=== PATIENT | female | born 1940 | race Caucasian/White ===

== ENCOUNTER 2020-04-30 08:04 | Outpatient (REF) | payer MEDICARE, OTHER, SELFPAY ==
--- NOTE | 2020-04-30 08:00 | CT_ITS ---
EXAMINATION: CT ABDOMEN AND PELVIS WITH CONTRAST CLINICAL INFORMATION: Abdominal pain. Renal disease. COMPARISON: None. TECHNIQUE: Multidetector volumetric images were obtained from the superior aspect of the liver through the pubic symphysis following administration 85 mL of Omnipaque 350 intravenous contrast. Sagittal and coronal reformatted images were obtained on the technologist's workstation. Oral contrast: Yes. This CT examination was performed using dose optimization techniques as appropriate, variously including the following: *Automated exposure control *Adjustment of mA and/or kV according to patient size (this includes techniques or standardized protocols for targeted exams where dose is matched to indication/reason for exam; i.e. extremities or head) *Use of iterative reconstruction technique DLP: 510 mGy-cm FINDINGS: LUNG BASES: The visualized lung bases are unremarkable. LIVER, GALLBLADDER, AND BILIARY TREE: Unremarkable. PANCREAS: There is a multiloculated cystic mass in the pancreatic head measuring 5.7 (CC) x 4.3 (TRV) x 4.5 (AP) cm (image 70, series 4; image 65, series 4; image 33, series 3 respectively. No associated calcification is seen. The pancreatic duct is not significantly dilated in this region. A small cystic lesion is seen anterosuperiorly in the pancreatic body measuring 1.1 x 0.9 x 0.7 cm (image 62, series 4; image 25, series 3). Mild adjacent pancreatic ductal dilatation is seen measuring 0.5 cm (image 26, series 3). SPLEEN: Unremarkable. ADRENAL GLANDS: Unremarkable. KIDNEYS AND URETERS: Left upper pole renal cyst measures up to 4.3 cm (image 30, series 3). BLADDER: Unremarkable. GASTROINTESTINAL TRACT: The stomach is unremarkable. A small third segment duodenal diverticulum is seen without surrounding abnormality. The remainder of the small bowel is unremarkable. The appendix is unremarkable. Mild descending/sigmoid diverticulosis is seen with moderate mural thickening and pericolonic infiltrative changes in the mid one third of the sigmoid colon. There is no evidence for perforation or abscess formation. ABDOMINAL WALL: No significant hernia is appreciated. LYMPH NODES: No lymphadenopathy. VASCULAR: Moderate to severe atherosclerosis is seen without significant ectasia. PELVIC VISCERA: Unremarkable. OSSEOUS STRUCTURES: L5-S1 is transitional. There is mild grade 1 anterolisthesis of L4 over L5. No suspicious abnormality. IMPRESSION: 1. Pancreatic head cystic mass as detailed above. Considerations include serous cystadenoma, I PMN and uncomplicated pseudocyst. A cyst adenocarcinoma cannot be excluded. A smaller cyst is in the pancreatic body with mild adjacent pancreatic ductal dilatation favors an IPMN. Considerations for follow-up include contrast-enhanced MRI with MRCP as well as ERCP and biopsy. 2. Mild descending/sigmoid diverticulosis with evidence for acute diverticulitis in the mid one third of the sigmoid colon. No evidence for perforation or or abscess formation. 3. Left upper pole renal cyst demonstrates benign features. 4. Transitional L5-S1. L4-L5 grade 1 anterolisthesis. This critical result was discussed with Allison HUI at 04/30/2020 on 10:44 AM and it was ascertained that the content and urgency of the report was understood at the time of direct communication.
[2020-04-30] MEDS: iohexoL 350 MG/ML 100 ML INFUS..BTL IV (08:42)
== END 2020-04-30 08:05 | disposition home or self-care (01) ==
LOC: HO.CT 08:04
PROVIDERS: PCP Internal Medicine; Visit Provider Physician Assistant
DX: R10.9 Unspecified abdominal pain (principal)
CPT/HCPCS: 74177

== ENCOUNTER 2020-05-11 09:37 | Outpatient (REF) | payer MEDICARE, OTHER, SELFPAY ==
--- NOTE | 2020-05-11 09:50 | MR_ITS ---
EXAMINATION: MR ABDOMEN WITHOUT AND WITH CONTRAST CLINICAL INFORMATION: Followup pancreas lesion. COMPARISON: Previous CT of the abdomen and pelvis April 2020 TECHNIQUE: MR abdomen was performed without and with use of 7.5 mL intravenous Gadavist gadolinium contrast. Postcontrast images are performed in multiphase dynamic sequences. Imaging was performed in 3 planes. MRCP sequences were also performed. FINDINGS: LUNG BASES: The visualized lung bases are unremarkable. LIVER, GALLBLADDER, AND BILIARY TREE: The liver is normal in size, smooth in contour, and normal in signal. No focal hepatic lesion or biliary ductal dilatation is present. The gallbladder is unremarkable with no evidence of gallbladder wall thickening, or obvious pericholecystic inflammatory changes. Intrahepatic and extrahepatic bile ducts are normal in caliber. The common bile duct measures 0.4 cm. PANCREAS: There is a multilocular cystic lesion in the uncinate process of the head of the pancreas. This measures 3.5 x 4.5 x 5.5 cm in AP, transverse and longitudinal dimension. This has multiple enhancing septations. No solid component is seen. There are smaller cysts in the head of the pancreas measuring 4 mm and 5 x 10 mm. There is an 8 x 9 mm cyst in the body of the pancreas adjacent to the main pancreatic duct. There is mild focal dilatation of the main pancreatic duct in this region measuring up to 6 mm. The remainder of the main pancreatic duct is normal in caliber. SPLEEN: Normal. ADRENAL GLANDS: Normal. KIDNEYS AND URETERS: There is a 3.5 cm cyst in the left kidney. GASTROINTESTINAL TRACT: No bowel obstruction. No ascites or fluid collection. ABDOMINAL WALL: No significant hernia is appreciated. LYMPH NODES: No lymphadenopathy. VASCULAR: Unremarkable. OSSEOUS STRUCTURES: Marrow signal normal. There are degenerative changes of the spine. IMPRESSION: Large complex multiloculated cystic lesion in the uncinate process of the head of the pancreas with multiple enhancing septations. Smaller cysts seen in the head and body of the pancreas. The cyst in the body of the pancreas abuts the main pancreatic duct, and there is mild focal dilatation of the main pancreatic duct measuring up to 6 mm in this region. Neoplastic process such in IPMN, serous microcystic cystadenoma and complicated pseudocyst should be considered. Simple-appearing left renal cyst.
[2020-05-11 12:38] LABS: Alanine Aminotransferase 9 U/L (0-31); Alkaline Phosphatase 89 U/L (39-117); Anion Gap 14 (12-20); Aspartate Amino Transferase 16 U/L (5-31); Bilirubin Total 0.2 mg/dL (0.0-1.0); Blood Urea Nitrogen 12 mg/dL (9-16); Carbon Dioxide 28 mmol/L (22-29); Chloride 100 mmol/L (96-108); Estimated Glomerular Filt Rate 37; Glucose Random 89 mg/dL (60-115); Potassium 3.4 mmol/l (3.3-5.1); Sodium 139 mmol/L (135-145)
[2020-05-12 13:31] LABS: Carbohydrate Antigen 19-9 <3 U/mL (<34)
== END 2020-05-11 09:38 | disposition home or self-care (01) ==
LOC: HO.MRI 09:37
PROVIDERS: PCP Internal Medicine; Visit Provider Physician Assistant
DX: K86.89 Other specified diseases of pancreas (principal)
CPT/HCPCS: 74183; 80053; 86301

== ENCOUNTER → 2020-06-12 09:16 | Outpatient (BNVA) | payer MEDICARE, OTHER, SELFPAY | PROVIDERS: PCP Internal Medicine; Visit Provider Surgery | DX: N60.92 Unspecified benign mammary dysplasia of left breast (principal) | CPT/HCPCS: 99212 ==

== ENCOUNTER 2020-07-12 07:29 | Day surgery (SDC) | payer MEDICARE, OTHER, SELFPAY ==
[2020-07-09 09:52] VITALS: BMI 36.6
--- NOTE | 2020-07-11 12:59 | HO.ANESPROP2 ---
Documented by User: Ada Pérez 07/11/20 13:04 HPI - Anesthesia Eval Consult details Narrative: 80yo F for Colonoscopy ?ROSAMARIA Cardiac clearance pending per GI note PMFSH Past Medical History Medical History Atypical ductal hyperplasia of left breast Coronary artery disease History of anesthesia problem History of diverticulitis Hx of gastritis Hypercholesterolemia Hypertension Incontinence of feces Family History Family History Mother Gastric cancer Surgical History Surgical History History of esophagogastroduodenoscopy (EGD) History of heart artery stent History of left breast biopsy History of parotid gland removal Hx of colonoscopy Hx of dilation and curettage Social History Social History Alcohol intake: current Alcohol intake frequency: holidays/special occasions only Smoking Status: Former smoker Smoking Quit Date: 2007 Advance Directives: Yes Advance Directives Information Provided: Yes Advance Directives on File: Yes Advance Directives Date on File: 04/30/20 Meds Allergies Allergy/AdvReac Type Severity Reaction Status Date / Time No Known Allergies Allergy Verified 07/09/20 09:43 [No Known Allergies*] Home Medications Medication Instructions Recorded Confirmed Type amlodipine 10 mg tablet 10 mg PO BEDTIME 06/12/20 07/09/20 History aspirin 81 mg tablet,delayed 81 mg PO DAILY 06/12/20 07/12/20 History release clopidogrel 75 mg tablet 75 mg PO DAILY 06/12/20 07/12/20 History levothyroxine 112 mcg tablet 56 mcg PO DAILY 06/12/20 07/12/20 History rosuvastatin 40 mg tablet 40 mg PO DAILY 06/12/20 07/09/20 History cholecalciferol (vitamin D3) 125 mcg PO DAILY 07/09/20 07/09/20 History [Vitamin D3] omeprazole 1 cap PO DAILY 07/09/20 07/09/20 History Exam Exam Date and Time: July 11, 2020 1259 Height,Weight and Vital Signs: Height 4 ft 9 in Weight 76.657 kg Pertinent Lab Results Pertinent Lab Results: Laboratory Tests 04/18/20 05/11/20 12:25 10:53 WBC 10.5 Hgb 12.6 Hct 40.0 Plt Count 280 Sodium 139 Potassium 3.4 Chloride 100 Carbon Dioxide 28 BUN 12 Creatinine 1.36 Narrative Narrative: EKG 12/2019: NSR with LBBB (old) Assessment and Plan Assessment Anesthesia Assessment: Chart Reviewed Documented by User: Damien Teixeira MD 07/12/20 10:07 PMFSH Past Medical History Medical History Atypical ductal hyperplasia of left breast Coronary artery disease History of anesthesia problem History of diverticulitis Hx of gastritis Hypercholesterolemia Hypertension Incontinence of feces Family History Family History Mother Gastric cancer Surgical History Surgical History History of esophagogastroduodenoscopy (EGD) History of heart artery stent History of left breast biopsy History of parotid gland removal Hx of colonoscopy Hx of dilation and curettage Social History Social History Alcohol intake: current Alcohol intake frequency: holidays/special occasions only Smoking Status: Former smoker Smoking Quit Date: 2007 Advance Directives: Yes Advance Directives Information Provided: Yes Advance Directives on File: Yes Advance Directives Date on File: 04/30/20 Meds Allergies Allergy/AdvReac Type Severity Reaction Status Date / Time No Known Allergies Allergy Verified 07/09/20 09:43 [No Known Allergies*] Home Medications Medication Instructions Recorded Confirmed Type amlodipine 10 mg tablet 10 mg PO BEDTIME 06/12/20 07/09/20 History aspirin 81 mg tablet,delayed 81 mg PO DAILY 06/12/20 07/12/20 History release clopidogrel 75 mg tablet 75 mg PO DAILY 06/12/20 07/12/20 History levothyroxine 112 mcg tablet 56 mcg PO DAILY 06/12/20 07/12/20 History rosuvastatin 40 mg tablet 40 mg PO DAILY 06/12/20 07/09/20 History cholecalciferol (vitamin D3) 125 mcg PO DAILY 07/09/20 07/09/20 History [Vitamin D3] omeprazole 1 cap PO DAILY 07/09/20 07/09/20 History Assessment and Plan Assessment Anesthesia Assessment: Anesthesia Plan Discussed and Chart Reviewed Final Anesthetic Review NPO: Yes ASA Class: III Final Preanesthetic Review: No Changes in Pt Med Stat, Consent Obtained/Reviewed and Anes Risks/Benef Reviewed Patient Risk: Intermediate Procedure Risk: Low Anesthetic Plan Anesthetic Plan: MAC: Disposition: Standard PACU
[2020-07-12] VITALS (15 sets, daily range): BP systolic 136–177; BP diastolic 48–61; PULSE 82–98; RESP 14–20; TEMP 36.1–36.8; O2SAT 85–99
--- NOTE | 2020-07-12 | ECG_ITS ---
Test Reason : CP Blood Pressure : / mmHG Vent. Rate : 091 BPM Atrial Rate : 091 BPM P-R Int : 134 ms QRS Dur : 150 ms QT Int : 414 ms P-R-T Axes : 041 -27 120 degrees QTc Int : 509 ms Normal sinus rhythm Left bundle branch block Abnormal ECG When compared with ECG of 06-JUN-2013 15:06, No significant change was found Referred By: Damien Teixeira Electronically Signed By:Eduard Kennedy
[2020-07-12 08:01] LABS: COVID-19 Test Negative (Negative)
[2020-07-12] MEDS: Lactated Ringers 1,000 ML 100 ML IVCONT (08:11)
--- NOTE | 2020-07-12 09:27 | PC.NURSE ---
per GI note, pt required cardiac clearance prior to colonoscopy d/t cardiac stent placed in october 2018. Sol in GI office faxed over cardiology note from january 2020. this note does not state clearance for colonscopy. case discussed with Dr. Olivares, Dr. Teixeira and Dr. Osorio. Dr. Teixeira assessed the patient and determined it was safe to proceed. upon further investigation, pt states she has not been on plavix for 8 days. Sol from GI office spoke with Rosaura MEI in Dr. Vaughn's office and stated Dr. Vaughn is aware of colonscopy. if he was not ok with he would not have told her to stop plavix. per anestheis and Dr. Clifford, it is ok to proceed with colonscopy without formal cardiac clearance. telephone encounter from Dr. Vaughn's office was sent over from GI and palced in patient chart.
--- NOTE | 2020-07-12 10:28 | MHC.SHP ---
Pre-Procedural Eval Section B Chief Complaint: Abdominal Pain Relevant Social History: None Present Medications: see Short Stay Collaborative assessment Medical History: Significant History (Atypical ductal hyperplasia of left breast Coronary artery disease History of anesthesia problem History of diverticulitis Hx of gastritis Hypercholesterolemia Hypertension Incontinence of feces, pancreatic cyst) History of Previous Operations: Relevant previous surgery/procedure and date(s) (History of esophagogastroduodenoscopy (EGD) History of heart artery stent History of left breast biopsy History of parotid gland removal Hx of colonoscopy Hx of dilation and curettage) Allergies: Allergies Allergy/AdvReac Type Severity Reaction Status Date / Time No Known Allergies Allergy Verified 07/09/20 09:43 [No Known Allergies*] Review of Systems Sugical H&P ROS: Negative: Constitution, Cardiovascular, Respiratory, Neurological, Psychiatric, Hem-Onc, Allergic/Immunologic, Gastrointestinal, Genitourinary, Musculoskeletal, Integumentary, Endocrine and Eyes/Ears/Nose/Throat Exam Surgical H&P Exam: Normal: HEENT, Normal: Heart, Normal: Lungs, Normal: Extremities, Normal: Abdomen, Normal: Skin and Normal: Neurological Plan Diagnosis/Plan: Unchanged I have reviewed the history and physical and performed a pertinent physical examination on my patient. No changes have occurred unless specified.
--- NOTE | 2020-07-12 11:13 | P.BOP_ITS ---
Brief Operative Note Date of Service: 07/12/20 Pre-op diagnosis: constipation, hx of incomplete colonoscopy Post-op diagnosis: same Procedure: Operative Information Procedure Description: Colonoscopy COLONOSCOPY Instrument: Olympus variable stiffness pediatric scope 190L Colonoscopy Monitoring: Vital signs and clinical assessment, continuous EKG monitoring, Pulse oximetry, Carbon Dioxide monitoring and blood pressure monitoring were done throughout the procedure. Colon withdrawal time was 17 minutes. Procedure: The patient was placed in the left lateral decubitis position and pre-procedure medications were administered. After a digital rectal examination of the ano-rectum, the video colonoscope was inserted into the rectum and advanced through the colon to the cecum The colonoscope was slowly withdrawn in a retrograde panoramic fashion and the colon mucosa was carefully examined including a retroflexed view of the rectum. Findings and interventions are described below. Procedure Difficulty: very difficult due to severe diverticulosis and looping, sigmoid lift used to get around a very tight rectosigmoid junction Findings: Sanders diverticular disease with wide mouthed tics, more severe on the left colon with mucosal hypertrophy and narrowing with angulation and fixed colon antione in the distal sigmoid and rectosigmoid junction, some mild erythema around the diverticula in sigmoid Terminal Ileum-unable to intubate due to looping Cecum:8-10 mm sessile polyp removed with cold snare Ascending Colon: normal Transverse Colon -normal Descending Colon: x 2 polyps,both sessile, one was 10 mm and removed with cold snare, x 1 clip applied due to oozing of blood, second polyp removed with biopsy forceps measured about 6-8 mm Sigmoid Colon: as above--diverticulosis, severe Rectum: Retroflexion with small sized internal hemorrhoids, grade I Anorectum - normal Colon preparation: Sylvester Bowel Preparation Scale Right colon; 2 Transverse colon: 3 Left colon; 3 (0 = Unprepared colon segment with mucosa not seen due to solid stool that cannot be cleared. 1 = Portion of mucosa of the colon segment seen, but other areas of the colon segment not well seen due to staining, residual stool and/or opaque liquid. 2 = Minor amount of residual staining, small fragments of stool and/or opaque liquid, but mucosa of colon segment seen well. 3 = Entire mucosa of colon segment seen well with no residual staining, small fragments of stool or opaque liquid) Impression and Post Procedure Diagnosis: severe diverticulosis, internal hemorrhoids polyps Plan: High fiber diet leaflet Avoid straining at stool, epsom salts and sitz bath, anusol supps or cream prn stool softener as needed should not need another colonoscopy for screening purposes, but if required for other reasons then can be considered as clinically indicated. during procedure she did vomit a few times, will give short course of augmentin to prevent pneumonia Above findings were reviewed with the patient and relevant handouts were provided if indicated. Surgeon: Supa Clifford MD Anesthesia: MAC Estimated blood loss (mL): 5 Condition: stable Disposition: PACU
[2020-07-12] MEDS: Albuterol Sulfate (0.083%) 2.5 MG/3 ML VIAL.NEB INHALE (11:47)
[2020-07-12] MEDS: Amoxicillin/Potassium Clav 500 MG TABLET PO (12:13)
--- NOTE | 2020-07-13 14:01 | HO.POSTANES ---
Post Anesthesia Evaluation Post Anesthesia Evaluation Anesthesia: Monitored Mental Status: Awake Pain Control: Satisfactory Nausea/Vomiting: Severe (patient aspirated leading to aspiration pneumonia. Patient was admitted for observation) Hydration: Adequate Anesthesia-Related Issues: No Anes. Related Issues (aspiration)
== END 2020-07-12 23:59 | disposition home or self-care (01) ==
PROVIDERS: PCP Internal Medicine; Visit Provider Internal Medicine Gastroenterology
PROC: 0DJD8ZZ Inspection of Lower Intestinal Tract, Via Natural or Artificial Opening Endoscopic (ICD-10-PCS; CPT 45378; principal; 2020-07-12 09:10)
DX: R10.9 Unspecified abdominal pain (principal); K59.00 Constipation, unspecified; D12.0 Benign neoplasm of cecum; K63.5 Polyp of colon; K57.30 Diverticulosis of large intestine without perforation or abscess without bleeding; K56.2 Volvulus; K64.0 First degree hemorrhoids; J95.89 Other postprocedural complications and disorders of respiratory system, not elsewhere classified; J69.0 Pneumonitis due to inhalation of food and vomit; Y84.8 Other medical procedures as the cause of abnormal reaction of the patient, or of later complication, without mention of misadventure at the time of the procedure; Y92.238 Other place in hospital as the place of occurrence of the external cause; I25.10 Atherosclerotic heart disease of native coronary artery without angina pectoris; Z95.5 Presence of coronary angioplasty implant and graft; Z20.828 Contact with and (suspected) exposure to other viral communicable diseases
CPT/HCPCS: 45385; 45380; 87635; 88305; 93005; 94640; J2405; J2765

== ENCOUNTER 2020-07-12 14:29 | Inpatient (IN) | payer MEDICARE, OTHER, SELFPAY ==
[2020-07-12 14:34] VITALS: BP 147/46; PULSE 87; RESP 16; TEMP 37.2; O2SAT 89; BMI 36.3
--- NOTE | 2020-07-12 14:45 | PC.NURSE ---
pt is placed on 02 at 2l/m via n/c.
--- NOTE | 2020-07-12 15:09 | XR_ITS ---
EXAMINATION: XR CHEST CLINICAL INFORMATION: Aspiration of the colonoscopy. Evaluate for pneumonia. COMPARISON: None TECHNIQUE: 2 views of the chest were obtained. FINDINGS: Lungs and pleural spaces: Clear. Calcification of the dorsal aorta. Cardiac silhouette and pulmonary vascularity normal. Bone and soft tissues: Spondylosis of the dorsal spine. XR/XR chest 2V IMPRESSION: No acute disease
--- NOTE | 2020-07-12 15:15 | ED_ITS ---
HPI - SOB/Dyspnea General Chief Complaint: Dyspnea Stated Complaint: r/o pneumonia Time Seen by Provider: 07/12/20 15:03 Source: patient and other (Dr. Miranda,PACU anesthesiologist) Mode of arrival: ambulatory Limitations: no limitations History of Present Illness HPI Narrative: 80-year-old female who was undergoing elective colonoscopy for evaluation of abdominal pain and constipation [place] [facility] [place] erred to the emergency department for evaluation of possible aspiration pneumonia. According to the anesthesiologist in the PACU, Dr. Miranda, the patient had 2 episodes of emesis requiring suction. After the emesis the patient was noted to be hypoxic with O2 saturations dropping to the 80% range on room air. On 2 L via nasal cannula, the patient came up to the 96% range on her O2 saturations. Given her hypoxia, the patient was sent to the emergency department for an evaluation for further management. The patient states that prior to being transferred to the emergency department she was given oral antibiotics but she does not know the name of this medication. At the time evaluation, the patient states that she has a dry, nonproductive cough and a burning sensation in her throat when she coughs. She denies chest pain or shortness of breath. She states that she was in her usual state of health prior to the colonoscopy. She states that she was tested for COVID-19 prior to the procedure and tested negative. Related Data Home Medications Medication Instructions Recorded Confirmed amlodipine 10 mg tablet 10 mg PO BEDTIME 06/12/20 07/09/20 aspirin 81 mg tablet,delayed 81 mg PO DAILY 06/12/20 07/12/20 release clopidogrel 75 mg tablet 75 mg PO DAILY 06/12/20 07/12/20 levothyroxine 112 mcg tablet 56 mcg PO DAILY 06/12/20 07/12/20 rosuvastatin 40 mg tablet 40 mg PO DAILY 06/12/20 07/09/20 cholecalciferol (vitamin D3) 125 mcg PO DAILY 07/09/20 07/09/20 [Vitamin D3] omeprazole 1 cap PO DAILY 07/09/20 07/09/20 Previous Rx's Medication Instructions Recorded amoxicillin-pot clavulanate 2 tab PO Q8H 5 Days #30 tab 07/12/20 Allergies Allergy/AdvReac Type Severity Reaction Status Date / Time No Known Allergies Allergy Verified 07/09/20 09:43 [No Known Allergies*] Review of Systems Review of Systems: Yes all other systems are reviewed and are negative Constitutional: Constitutional: Reports as per HPI Eyes: Eyes: Reports as per HPI ENT: Reports as per HPI Cardiovascular: Cardiovascular: Reports as per HPI Respiratory: Respiratory: Reports as per HPI Gastrointestinal: Gastrointestinal: Reports as per HPI Genitourinary: Genitourinary: Reports as per HPI Musculoskeletal: Musculoskeletal: Reports as per HPI Integumentary/Breasts: Skin/Breast: Reports as per HPI Neurologic: Reports as per HPI and Reports Abnormal speech present Psychiatric: Psychiatric: Reports as per HPI Allergic/Immunologic: Allergic/Immunologic: Reports as per HPI [facility] Past Medical History Attestation statement: The following information was validated with the patient. [facility] Narrative: The patient is a former smoker, she stopped 12 years ago but has a 50 pack-year history of smoking. She denies alcohol and drug use. Medical History Atypical ductal hyperplasia of left breast Coronary artery disease History of anesthesia problem History of diverticulitis Hx of gastritis Hypercholesterolemia Hypertension Incontinence of feces Surgical History History of esophagogastroduodenoscopy (EGD) History of heart artery stent History of left breast biopsy History of parotid gland removal Hx of colonoscopy Hx of dilation and curettage Family History Family History Mother Gastric cancer Social History Social History Alcohol intake: current Alcohol intake frequency: holidays/special occasions only Smoking Status: Former smoker Advance Directives: Yes Advance Directives on File: Yes Advance Directives Date on File: 04/30/20 Physical Exam Vital Signs: Vital Signs: Last Vital Signs Temp 99.1 F 07/12/20 16:54 Pulse 94 07/12/20 16:54 Resp 22 H 07/12/20 16:54 BP 145/31 H 07/12/20 16:54 Pulse Ox 99 07/12/20 16:54 Body Mass Index 36.3 Const: General: cooperative and healthy appearing Nutritional Appearance: obese Orientation/consciousness: oriented to person and oriented to place Limitations: no limitations HENMT: Head: Yes normal to inspection, Yes normocephalic and Yes atraumatic Ears: external ears normal General nose exam: Normal external nose present Face and sinus: Yes normal facial exam Mouth: Normal oral and palatal mucosa present Throat: Yes posterior oropharynx normal Eyes: General: appearance normal, both eyes and all related structures Alignment and Position: alignment normal Periorbital: periorbital findings normal Eyelids: Yes eyelids normal Conjunctivae: conjunctivae normal Sclerae: sclerae normal Pupils: Equal, round and reactive pupils present Direct Ophthalmoscopy: normal light reflex Neck: Neck: Yes normal visual inspection and Yes supple Thyroid: Thyroid normal Chest: Chest palpation & inspection: normal inspection of the chest and normal palpation of entire chest wall Resp: Effort & Inspection: normal respiratory effort and able to speak in complete sentences Auscultation: clear to auscultation bilaterally, no crackles, rales (At bases) and no rhonchi Cardio: Rate: regular rate Rhythm: regular rhythm Heart sounds: S1 normal heart sound present, S2 normal heart sound present and no murmurs GI: Inspection: Yes normal to inspection Palpation (GI): Soft to palpation, nontender and no guarding Auscultation: normal bowel sounds : General: Yes no CVA tenderness Back/Spine/Pelvis: Back: no CVA tenderness Cervical Spine: normal cervical lordosis Thoracic/Lumbar Spine: thoracic and lumbar spine normal to inspection Skin: General skin exam: no rashes or lesions noted Lesions: no lesions Rashes: no rashes Trauma: no lacerations or abrasions Neuro: General: oriented to person and oriented to place Cranial nerves: Yes CN's II-XII intact bilaterally and Yes Equal, round and reactive pupils present Cognition (Neuro): normal cognition Speech: Abnormal speech present Motor exam (neuro): 5/5 motor strength present throughout Extrem: Right upper extremity: normal to inspection and full ROM Psych: Appearance: grossly normal and well kempt Mental Status: mental status grossly normal Speech and movement: Normal speech and movement present Affect: normal affect Attitude: cooperative Thought process: Normal thought process present Thought content: Normal thought content present Insight: Good insight present (Psych) Judgement: Good judgement present (Psych) Course Course Course Narrative: 80-year-old female who presents to the emergency department for evaluation of hypoxia after 2 episodes of emesis after [place] [facility] [place] The patient's O2 saturations were in the 80% range on 2 L oxygen via nasal cannula her O2 saturations are 96%. Her lung exam does reveal rales at the bases. I did order a septic workup on this patient. Given the fact that she aspirated and is at risk for aspiration pneumonia/pneumonitis she was ordered to get Zosyn IV to give her anaerobic coverage. The patient did do a colonoscopy prep and I believe that she may be dehydrated therefore I did order the normal sounds 30 milliliters/kilogram IV bolus. 1706: Patient's laboratory evaluation [place] an [place] [address] and a normal lactic acid of 1.2. Chest x-ray revealed no acute infiltrate at this time. Given her hypoxia, concerned that she has a pneumonitis any x-rays lagging behind her symptoms. I did discuss the patient's presentation with the covering hospitalist and the patient will be admitted for further treatment and management of her hypoxia. MDM - SOB/Dyspnea Lab Data Result diagrams: 07/12/20 15:51 07/12/20 15:51 Labs: Lab Results 07/12/20 07/12/20 07/12/20 Range/Units 15:51 15:51 15:51 WBC 18.2 H (4.8-10.8) X10*3/uL RBC 4.18 L (4.20-5.50) X10*6/uL Hgb 12.8 (12.0-16.0) g/dl Hct 39.5 (37-47) % MCV 94.5 (80-98) fL MCH 30.6 (27.0-33.0) pg MCHC 32.4 (31.0-35.0) g/dl RDW 14.2 (11.0-16.0) % Plt Count 251 (160-400) X10*3/uL MPV 10.2 (9.4-12.3) fL Immature Gran % (Auto) 0.4 (0.0-0.4) % Neut % (Auto) 89.5 H (45-73) % Lymph % (Auto) 3.9 L (20-40) % Hughes % (Auto) 6.0 (2-11) % Eos % (Auto) 0.1 (0-4) % Baso % (Auto) 0.1 (0-2) % Lymph # (Auto) 0.7 L (1.2-4.9) X10*3/uL Hughes # (Auto) 1.1 (0.1-1.2) X10*3/uL Eos # (Auto) 0.0 (0.0-0.4) X10*3/uL Baso # (Auto) 0.0 (0.0-0.2) X10*3/uL Abs Immat Gran (auto) 0.07 H (0.00-0.03) X10*3/uL Absolute Neuts (auto) 16.3 H (2.0-8.3) X10*3/uL Absolute Nucleated RBC 0.000 (0.0-0.012) X10*3/uL Nucleated RBC % (auto) 0.0 (0.0-0.2) /100WBC PT (10.8-13.0) SEC INR (0.9-1.1) APTT (24.1-38.0) SEC Sodium 140 (135-145) mmol/L Potassium 4.0 (3.3-5.1) mmol/l Chloride 103 (96-108) mmol/L Carbon Dioxide 23 (22-29) mmol/L Anion Gap 18 (12-20) BUN 13 (9-16) mg/dL Creatinine 0.99 (0.5-1.4) mg/dL Estim Creat Clear Calc 38.3 Estimated GFR 54 Random Glucose 98 (60-115) mg/dL Lactic Acid 1.5 (0.5-2.0) mmol/L Calcium 8.9 (8.4-10.2) mg/dL Total Bilirubin 0.3 (0.0-1.0) mg/dL Direct Bilirubin 0.2 (0.0-0.5) mg/dL AST 19 (5-31) U/L ALT 21 (0-31) U/L Alkaline Phosphatase 131 H D (39-117) U/L Total Protein 6.6 (6.5-8.0) g/dL Albumin 3.9 (3.5-5.0) g/dL 07/12/20 07/12/20 Range/Units 15:51 15:52 WBC (4.8-10.8) X10*3/uL RBC (4.20-5.50) X10*6/uL Hgb (12.0-16.0) g/dl Hct (37-47) % MCV (80-98) fL MCH (27.0-33.0) pg MCHC (31.0-35.0) g/dl RDW (11.0-16.0) % Plt Count (160-400) X10*3/uL MPV (9.4-12.3) fL Immature Gran % (Auto) (0.0-0.4) % Neut % (Auto) (45-73) % Lymph % (Auto) (20-40) % Hughes % (Auto) (2-11) % Eos % (Auto) (0-4) % Baso % (Auto) (0-2) % Lymph # (Auto) (1.2-4.9) X10*3/uL Hughes # (Auto) (0.1-1.2) X10*3/uL Eos # (Auto) (0.0-0.4) X10*3/uL Baso # (Auto) (0.0-0.2) X10*3/uL Abs Immat Gran (auto) (0.00-0.03) X10*3/uL Absolute Neuts (auto) (2.0-8.3) X10*3/uL Absolute Nucleated RBC (0.0-0.012) X10*3/uL Nucleated RBC % (auto) (0.0-0.2) /100WBC PT 12.3 (10.8-13.0) SEC INR 1.0 (0.9-1.1) APTT 38.7 H (24.1-38.0) SEC Sodium Cancelled (135-145) mmol/L Potassium Cancelled (3.3-5.1) mmol/l Chloride Cancelled (96-108) mmol/L Carbon Dioxide Cancelled (22-29) mmol/L Anion Gap Cancelled (12-20) BUN Cancelled (9-16) mg/dL Creatinine Cancelled (0.5-1.4) mg/dL Estim Creat Clear Calc Cancelled Estimated GFR Cancelled Random Glucose Cancelled (60-115) mg/dL Lactic Acid (0.5-2.0) mmol/L Calcium Cancelled (8.4-10.2) mg/dL Total Bilirubin Cancelled (0.0-1.0) mg/dL Direct Bilirubin (0.0-0.5) mg/dL AST (5-31) U/L ALT (0-31) U/L Alkaline Phosphatase (39-117) U/L Total Protein (6.5-8.0) g/dL Albumin (3.5-5.0) g/dL Discharge Plan Discharge Clinical Impression: Aspiration pneumonitis, Hypoxia Patient Disposition: Admitted As Inpatient Prescriptions: No Action omeprazole 40 mg capsule,delayed release(DR/EC) 1 cap PO DAILY RF: 0 cholecalciferol (vitamin D3) [Vitamin D3] 125 mcg (5,000 unit) Tablet 125 mcg PO DAILY RF: 0 amoxicillin-pot clavulanate 250-125 mg tablet 2 tab PO Q8H 5 Days Qty: 30 RF: 0 levothyroxine 112 mcg tablet 56 mcg PO DAILY RF: 0 clopidogrel 75 mg tablet 75 mg PO DAILY RF: 0 aspirin [Adult Low Dose Aspirin] 81 mg tablet,delayed release (DR/EC) 81 mg PO DAILY RF: 0 amlodipine 10 mg tablet 10 mg PO BEDTIME RF: 0 rosuvastatin 40 mg tablet 40 mg PO DAILY RF: 0
[2020-07-12] MEDS: Piperacillin Sodium/Tazobactam 4.5 GM in 0.9 % Sodium Chloride 100 ML IV (15:55)
[2020-07-12 16:12] LABS: Basophils Percent Auto 0.1 % (0-2); Eosinophils Percent Auto 0.1 % (0-4); Hematocrit 39.5 % (37-47); Hemoglobin 12.8 g/dl (12.0-16.0); Imm Gran Abs Auto 0.07 X10*3/uL (0.00-0.03); Imm Gran Pct Auto 0.4 % (0.0-0.4); Lymphocytes Absolute Auto 0.7 X10*3/uL (1.2-4.9); Lymphocytes Percent Auto 3.9 % (20-40); MANUAL DIFF FLAG NO; Mean Corpuscular HGB Conc 32.4 g/dl (31.0-35.0); Mean Corpuscular Hemoglobin 30.6 pg (27.0-33.0); Mean Corpuscular Volume 94.5 fL (80-98); Mean Platelet Volume 10.2 fL (9.4-12.3); Monocytes Absolute Auto 1.1 X10*3/uL (0.1-1.2); Neutrophils Absolute Auto 16.3 X10*3/uL (2.0-8.3); Neutrophils Percent Auto 89.5 % (45-73); Platelet Count 251 X10*3/uL (160-400); Red Blood Count 4.18 X10*6/uL (4.20-5.50); Red Cell Distribution Width 14.2 % (11.0-16.0); White Blood Count 18.2 X10*3/uL (4.8-10.8)
[2020-07-12 16:28] LABS: Lactic Acid 1.5 mmol/L (0.5-2.0)
[2020-07-12 16:35] LABS: Alanine Aminotransferase 21 U/L (0-31); Albumin Level 3.9 g/dL (3.5-5.0); Alkaline Phosphatase 131 U/L (39-117); Anion Gap 18 (12-20); Aspartate Amino Transferase 19 U/L (5-31); Bilirubin Direct 0.2 mg/dL (0.0-0.5); Bilirubin Total 0.3 mg/dL (0.0-1.0); Blood Urea Nitrogen 13 mg/dL (9-16); Calcium 8.9 mg/dL (8.4-10.2); Carbon Dioxide 23 mmol/L (22-29); Chloride 103 mmol/L (96-108); Creatinine Clr Calc Pharmacy 38.3; Estimated Glomerular Filt Rate 54; Glucose Random 98 mg/dL (60-115); Sodium 140 mmol/L (135-145); Total Protein 6.6 g/dL (6.5-8.0)
[2020-07-12 16:50] LABS: Prothrombin Time 12.3 SEC (10.8-13.0)
[2020-07-12 16:53] LABS: Partial Thromboplastin Time 38.7 SEC (24.1-38.0)
[2020-07-12 16:54] VITALS: BP 145/31; PULSE 94; RESP 22; TEMP 37.3; O2SAT 99
--- NOTE | 2020-07-12 17:14 | PC.NURSE ---
Pt ambulated to bathroom w/ 1 assist for wheel oxygen tank, ambulates with steady gait.
[2020-07-12 17:21] LABS: Anion Gap 18 (12-20); Blood Urea Nitrogen 12 mg/dL (9-16); Calcium 8.4 mg/dL (8.4-10.2); Carbon Dioxide 23 mmol/L (22-29); Chloride 105 mmol/L (96-108); Creatinine Clr Calc Pharmacy 37.6; Estimated Glomerular Filt Rate 53; Glucose Random 99 mg/dL (60-115); Potassium 3.5 mmol/l (3.3-5.1); Sodium 142 mmol/L (135-145)
--- NOTE | 2020-07-12 18:02 | PM.IMHP ---
History of Present Illness Date of Service: 07/12/20 <EZ Russell - Last Filed: 07/12/20 18:12> Chief Complaint: Hypoxia <EZ Russell - Last Filed: 07/12/20 18:12> This is an 80-year-old female who was sent from PACU to [facility]. Patient underwent colonoscopy today and had vomiting during the procedure. Following the procedure she was noted to be hypoxic with oxygen saturations in the 80s. For this reason she was sent to the emergency department for evaluation. Chest x-ray was unremarkable. Lab work was significant for leukocytosis of 18,000. Lactic acid was within normal limits. Respiratory rate was elevated at 22, patient had low-grade fever of 99.1. The patient continued to be hypoxic on room air but improved on 2 L of supplemental oxygen. She reports productive cough since procedure as well as a sore throat. She was given a dose of empiric Zosyn in the decision was made to admit her for further management of acute respiratory failure with hypoxia. <EZ Russell - Last Filed: 07/12/20 18:12> Review of Systems Review of Systems: Yes all other systems are reviewed and are negative <EZ Russell - Last Filed: 07/12/20 18:12> Constitutional: Constitutional: Reports chills and Denies fever(s) <EZ Russell - Last Filed: 07/12/20 18:12> Respiratory: Respiratory: Reports cough and Reports pain with cough <EZ Russell Last Filed: 07/12/20 18:12> Gastrointestinal: Gastrointestinal: Denies abdominal pain <EZ Russell Last Filed: 07/12/20 18:12> Neurologic: Reports as per HPI and Reports Abnormal speech present <EZ Russell Last Filed: 07/12/20 18:12> [facility] Medical History: Medical History (Updated 07/12/20 @ 18:05 by EZ Russell) Atypical ductal hyperplasia of left breast Coronary artery disease History of anesthesia problem History of diverticulitis Hx of gastritis Hypercholesterolemia Hypertension Incontinence of feces Pancreatic mass <EZ Russell Last Filed: 07/12/20 18:12> Functional capacity: independent ambulation <EZ Russell - Last Filed: 07/12/20 18:12> Family History: Family History Mother Gastric cancer <EZ Russell - Last Filed: 07/12/20 18:12> Family history: reviewed and not pertinent <EZ Russell - Last Filed: 07/12/20 18:12> Surgical History: Surgical History History of esophagogastroduodenoscopy (EGD) History of heart artery stent History of left breast biopsy History of parotid gland removal Hx of colonoscopy Hx of dilation and curettage <EZ Russell - Last Filed: 07/12/20 18:12> Social History: Social History Alcohol intake: never Smoking Status: Former smoker Smoked in Last 30 Days: No Use of substances other than those prescribed or required for medical reasons: No Advance Directives: Yes Advance Directives on File: Yes Advance Directives Date on File: 04/30/20 <EZ Russell - Last Filed: 07/12/20 18:12> Meds Allergies/Adverse reactions: Allergies Allergy/AdvReac Type Severity Reaction Status Date / Time No Known Allergies Allergy Verified 07/09/20 09:43 [No Known Allergies*] <EZ Russell - Last Filed: 07/12/20 18:12> Home medications: Home Medications Medication Instructions Recorded Confirmed Type amlodipine 10 mg tablet 10 mg PO BEDTIME 06/12/20 07/12/20 History aspirin 81 mg tablet,delayed 81 mg PO DAILY 06/12/20 07/12/20 History release clopidogrel 75 mg tablet 75 mg PO DAILY 06/12/20 07/12/20 History levothyroxine 112 mcg tablet 56 mcg PO DAILY 06/12/20 07/12/20 History rosuvastatin 40 mg tablet 40 mg PO DAILY 06/12/20 07/12/20 History cholecalciferol (vitamin D3) 125 mcg PO DAILY 07/09/20 07/12/20 History [Vitamin D3] omeprazole 1 cap PO DAILY 07/09/20 07/12/20 History <EZ Russell - Last Filed: 07/12/20 18:12> Physical Exam Vital Signs and Narrative: Vital Signs: Last Vital Signs Temp 99.1 F 07/12/20 16:54 Pulse 94 07/12/20 16:54 Resp 22 H 07/12/20 16:54 BP 145/31 H 07/12/20 16:54 Pulse Ox 99 07/12/20 16:54 Body Mass Index 36.3 <EZ Russell - Last Filed: 07/12/20 18:12> Const: Nutritional Appearance: well nourished <EZ Russell - Last Filed: 07/12/20 18:12> Orientation/consciousness: patient oriented x3 <EZ Russell - Last Filed: 07/12/20 18:12> HENMT: Head: Yes normocephalic and Yes atraumatic <EZ Russell - Last Filed: 07/12/20 18:12> Eyes: Sclerae: sclerae normal <EZ Russell - Last Filed: 07/12/20 18:12> Chest: Chest palpation & inspection: normal inspection of the chest <EZ Russell - Last Filed: 07/12/20 18:12> Resp: Effort & Inspection: tachypneic and no use of accessory muscles <EZ Russell - Last Filed: 07/12/20 18:12> Auscultation: diminished lung sounds <EZ Russell - Last Filed: 07/12/20 18:12> Cardio: Rate: regular rate <EZ Russell - Last Filed: 07/12/20 18:12> Rhythm: regular rhythm <EZ Russell - Last Filed: 07/12/20 18:12> GI: Palpation (GI): Soft to palpation and nontender <EZ Russell - Last Filed: 07/12/20 18:12> Skin: General skin exam: no rashes or lesions noted <EZ Russell - Last Filed: 07/12/20 18:12> Neuro: General: patient oriented x3 <EZ Russell - Last Filed: 07/12/20 18:12> Cranial nerves: Yes CN's II-XII intact bilaterally and Yes Bilaterally intact EOM present <EZ Russell - Last Filed: 07/12/20 18:12> Speech: Abnormal speech present <EZ Russell - Last Filed: 07/12/20 18:12> Extrem: General: Yes normal to inspection <EZ Russell - Last Filed: 07/12/20 18:12> Results Labs CBC and Chem 7: : 07/12/20 15:51 07/12/20 16:53 <EZ Russell - Last Filed: 07/12/20 18:12> Labs: Laboratory Results - last 24 hr 07/12/20 07/12/20 07/12/20 15:51 15:51 15:51 MCV 94.5 MCH 30.6 MCHC 32.4 RDW 14.2 Plt Count 251 MPV 10.2 Immature Gran % (Auto) 0.4 Neut % (Auto) 89.5 H Lymph % (Auto) 3.9 L Wagoner % (Auto) 6.0 Eos % (Auto) 0.1 Baso % (Auto) 0.1 Lymph # (Auto) 0.7 L Wagoner # (Auto) 1.1 Eos # (Auto) 0.0 Baso # (Auto) 0.0 Abs Immat Gran (auto) 0.07 H Absolute Neuts (auto) 16.3 H Absolute Nucleated RBC 0.000 Nucleated RBC % (auto) 0.0 PT INR APTT Anion Gap 18 Estim Creat Clear Calc 38.3 Estimated GFR 54 Random Glucose 98 Lactic Acid 1.5 Calcium 8.9 Total Bilirubin 0.3 Direct Bilirubin 0.2 AST 19 ALT 21 Alkaline Phosphatase 131 H D Total Protein 6.6 Albumin 3.9 07/12/20 07/12/20 07/12/20 15:51 15:52 16:53 MCV MCH MCHC RDW Plt Count MPV Immature Gran % (Auto) Neut % (Auto) Lymph % (Auto) Wagoner % (Auto) Eos % (Auto) Baso % (Auto) Lymph # (Auto) Wagoner # (Auto) Eos # (Auto) Baso # (Auto) Abs Immat Gran (auto) Absolute Neuts (auto) Absolute Nucleated RBC Nucleated RBC % (auto) PT 12.3 INR 1.0 APTT 38.7 H Anion Gap Cancelled 18 Estim Creat Clear Calc Cancelled 37.6 Estimated GFR Cancelled 53 Random Glucose Cancelled 99 Lactic Acid Calcium Cancelled 8.4 Total Bilirubin Cancelled Direct Bilirubin AST ALT Alkaline Phosphatase Total Protein Albumin <EZ Russell - Last Filed: 07/12/20 18:12> Imaging Radiologist's Impressions: Impressions Chest X-Ray 07/12/20 15:09 IMPRESSION: No acute disease <EZ Russell - Last Filed: 07/12/20 18:12> Assessment and Plan (1) Aspiration pneumonitis: Status: Acute <EZ Russell - Last Filed: 07/12/20 18:12> (2) Hypoxia: Status: Acute <EZ Russell - Last Filed: 07/12/20 18:12> This is an 80-year-old rhythm strip coronary artery disease, hypothyroidism, hypertension who was sent from PACU for hypoxia following vomiting during colonoscopy Acute respiratory failure with hypoxia Secondary to Aspiration pneumonia Received empiric antibiotics in ED -continue supplemental oxygen SIRS No sepsis Related to aspiration pneumonitis Lactic acid within normal limits Sepsis focused exam completed Follow-up blood cultures Hypertension Continue Norvasc Hypothyroidism continue Synthroid Coronary artery disease Continue aspirin, statin, Plavix DVT prophylaxis-Lovenox Code status-full code This case was discussed with Dr. Jiménez <EZ Russell - Last Filed: 07/12/20 18:12>
--- NOTE | 2020-07-12 19:02 | PC.NURSE ---
called pharmacy for antibiotics-- pharmacist to clarify order w/ kristin graham.
[2020-07-12 20:00] VITALS: BP 133/45; PULSE 77; RESP 22; TEMP 37.8; O2SAT 98
--- NOTE | 2020-07-12 20:21 | PC.NURSE ---
x1 attempt to call report to med surg, awaiting callback
[2020-07-12 21:00] VITALS: BP 133/75; PULSE 72
[2020-07-12] MEDS: Enoxaparin Sodium 40 MG/0.4 ML SYRINGE SUBCUT (21:00)
[2020-07-12 22:00] VITALS: BP 154/43; PULSE 80; RESP 19; TEMP 36.6; O2SAT 92
[2020-07-12] MEDS: Ampicillin Sodium/Sulbactam Na 1.5 GM in 0.9 % Sodium Chloride 100 ML IV (22:08)
[2020-07-12] MEDS: 0.9 % Sodium Chloride Flush 3 ML SYRINGE IVFLUSH (23:56)
[2020-07-13] VITALS: BP 118/35; PULSE 74; RESP 19; TEMP 37.3; O2SAT 95
[2020-07-13 04:00] VITALS: BP 148/42; PULSE 70; RESP 20; TEMP 37.2; O2SAT 93
[2020-07-13] MEDS: Ampicillin Sodium/Sulbactam Na 1.5 GM in 0.9 % Sodium Chloride 100 ML IV ×2 (04:06→09:30)
[2020-07-13] MEDS: Levothyroxine Sodium 112 MCG TABLET 56 MCG PO (05:54)
[2020-07-13 06:20] LABS: MANUAL DIFF FLAG NO
[2020-07-13 06:25] LABS: Basophils Percent Auto 0.2 % (0-2); Eosinophils Absolute Auto 0.1 X10*3/uL (0.0-0.4); Eosinophils Percent Auto 0.8 % (0-4); Hematocrit 33.8 % (37-47); Imm Gran Abs Auto 0.04 X10*3/uL (0.00-0.03); Imm Gran Pct Auto 0.3 % (0.0-0.4); Lymphocytes Absolute Auto 1.4 X10*3/uL (1.2-4.9); Lymphocytes Percent Auto 11.5 % (20-40); Mean Corpuscular HGB Conc 32.5 g/dl (31.0-35.0); Mean Corpuscular Hemoglobin 30.8 pg (27.0-33.0); Mean Corpuscular Volume 94.7 fL (80-98); Mean Platelet Volume 10.4 fL (9.4-12.3); Monocytes Absolute Auto 1.2 X10*3/uL (0.1-1.2); Monocytes Percent Auto 9.8 % (2-11); Neutrophils Absolute Auto 9.1 X10*3/uL (2.0-8.3); Neutrophils Percent Auto 77.4 % (45-73); Platelet Count 201 X10*3/uL (160-400); Red Blood Count 3.57 X10*6/uL (4.20-5.50); Red Cell Distribution Width 14.5 % (11.0-16.0); White Blood Count 11.8 X10*3/uL (4.8-10.8)
[2020-07-13 06:52] LABS: Anion Gap 16 (12-20); Blood Urea Nitrogen 8 mg/dL (9-16); Calcium 7.9 mg/dL (8.4-10.2); Carbon Dioxide 24 mmol/L (22-29); Chloride 106 mmol/L (96-108); Creatinine Clr Calc Pharmacy 43.6; Estimated Glomerular Filt Rate > 60; Glucose Random 99 mg/dL (60-115); Potassium 3.5 mmol/l (3.3-5.1); Sodium 142 mmol/L (135-145)
[2020-07-13 07:51] VITALS: BP 167/88; PULSE 70; RESP 18; TEMP 36.8; O2SAT 97
[2020-07-13] MEDS: Cholecalciferol (Vitamin D3) 25 MCG TABLET 125 MCG PO (09:29)
[2020-07-13] MEDS: 0.9 % Sodium Chloride Flush 3 ML SYRINGE IVFLUSH (09:29)
[2020-07-13] MEDS: Aspirin Enteric Coated 81 MG TABLET.DR PO (09:29)
[2020-07-13] MEDS: Atorvastatin Calcium 80 MG TABLET PO (09:30)
--- NOTE | 2020-07-13 11:52 | MHC.CM.PN ---
PT S/P HYPOXIA AFTER COLONOSCOPY, PT PLAN TO DISCHARGE HOME WITH NO SERVICES, PT'S [id number] JOSE TO TRANSPORT, PT HAS NO SERVICES AT HOME HOWEVER UTILIZES [facility] FOR [facility]ALS SEVERAL DAYS A WEEK, COOKS AND HAS FAMILY BRINGING HER FOOD WELL, PT REPORTS HER YOUNGEST DAUGHTER IS [employer] HOWEVER DOES NOT HAVE HER CONTACT INFO DUE TO LEAVING HER PHONE AT HOME. TRANSPORT: JOSE [facility], [id number] [phone] HCP: LEX GONZALEZ, DAUGHTER PCP: DEVORA BARRETT
[2020-07-13 12:00] VITALS: BP 112/45; PULSE 74; RESP 18; TEMP 36.6; O2SAT 93
--- NOTE | 2020-07-13 13:04 | P.DS_ITS ---
DS: Providers Provider Date of admission: 07/12/20 17:54 Primary care physician: Renetta Smalls MD DS: Diagnosis Discharge Diagnosis (1) Hypoxia: Status: Acute (2) Aspiration pneumonia: Status: Acute DS: Medications Discharge Medications Home Medications: Home Medications Medication Instructions Recorded Confirmed amlodipine 10 mg tablet 10 mg PO BEDTIME 06/12/20 07/12/20 aspirin 81 mg tablet,delayed 81 mg PO DAILY 06/12/20 07/12/20 release clopidogrel 75 mg tablet 75 mg PO DAILY 06/12/20 07/12/20 levothyroxine 112 mcg tablet 56 mcg PO DAILY 06/12/20 07/12/20 rosuvastatin 40 mg tablet 40 mg PO DAILY 06/12/20 07/12/20 cholecalciferol (vitamin D3) 125 mcg PO DAILY 07/09/20 07/12/20 [Vitamin D3] omeprazole 1 cap PO DAILY 07/09/20 07/12/20 DS: Summary Hospital Course Hospital Course: Patient was admitted for hypoxia after an aspiration event post colonoscopy. She was empirically started on IV Unasyn and was given supplemental oxygen. Within 24 hours her hypoxia resolved and she will be discharged home to complete a course of oral Augmentin. Time Spent with Patient Time attestation: Total time spent providing and/or coordinating discharge services: Physical Exam Vital Signs: Vital Signs: Last Vital Signs Temp 97.8 F 07/13/20 12:00 Pulse 74 07/13/20 12:00 Resp 18 07/13/20 12:00 BP 112/45 L 07/13/20 12:00 Pulse Ox 93 07/13/20 12:00 Body Mass Index 36.3 Const: Other: General - no acute distress, appears comfortable Cardiovascular - regular rate and rhythm, S1-S2 Lungs - normal respiratory effort, clear to auscultation bilaterally, no wheezing Abdomen - soft, nontender, no rebound or guarding Extremities - no edema bilaterally Neuro - awake and alert, no focal deficits DS: Data Data Completed and Pending Labs on day of discharge: Laboratory Last Values WBC 11.8 X10*3/uL (4.8-10.8) H 07/13/20 05:57 RBC 3.57 X10*6/uL (4.20-5.50) L 07/13/20 05:57 Hgb 11.0 g/dl (12.0-16.0) L 07/13/20 05:57 Hct 33.8 % (37-47) L 07/13/20 05:57 MCV 94.7 fL (80-98) 07/13/20 05:57 MCH 30.8 pg (27.0-33.0) 07/13/20 05:57 MCHC 32.5 g/dl (31.0-35.0) 07/13/20 05:57 RDW 14.5 % (11.0-16.0) 07/13/20 05:57 Plt Count 201 X10*3/uL (160-400) 07/13/20 05:57 MPV 10.4 fL (9.4-12.3) 07/13/20 05:57 Immature Gran % (Auto) 0.3 % (0.0-0.4) 07/13/20 05:57 Neut % (Auto) 77.4 % (45-73) H 07/13/20 05:57 Lymph % (Auto) 11.5 % (20-40) L 07/13/20 05:57 [place] % (Auto) 9.8 % (2-11) 07/13/20 05:57 Eos % (Auto) 0.8 % (0-4) 07/13/20 05:57 Baso % (Auto) 0.2 % (0-2) 07/13/20 05:57 Lymph # (Auto) 1.4 X10*3/uL (1.2-4.9) 07/13/20 05:57 [place] # (Auto) 1.2 X10*3/uL (0.1-1.2) 07/13/20 05:57 Eos # (Auto) 0.1 X10*3/uL (0.0-0.4) 07/13/20 05:57 Baso # (Auto) 0.0 X10*3/uL (0.0-0.2) 07/13/20 05:57 Abs Immat Gran (auto) 0.04 X10*3/uL (0.00-0.03) H 07/13/20 05:57 Absolute Neuts (auto) 9.1 X10*3/uL (2.0-8.3) H 07/13/20 05:57 Absolute Nucleated RBC 0.000 X10*3/uL (0.0-0.012) 07/13/20 05:57 Nucleated RBC % (auto) 0.0 /100WBC (0.0-0.2) 07/13/20 05:57 PT 12.3 SEC (10.8-13.0) 07/12/20 15:52 INR 1.0 (0.9-1.1) 07/12/20 15:52 APTT 38.7 SEC (24.1-38.0) H 07/12/20 15:52 Sodium 142 mmol/L (135-145) 07/13/20 05:57 Potassium 3.5 mmol/l (3.3-5.1) 07/13/20 05:57 Chloride 106 mmol/L (96-108) 07/13/20 05:57 Carbon Dioxide 24 mmol/L (22-29) 07/13/20 05:57 Anion Gap 16 (-20) 07/13/20 05:57 BUN 8 mg/dL (9-16) L 07/13/20 05:57 Creatinine 0.87 mg/dL (0.5-1.4) 07/13/20 05:57 Estim Creat Clear Calc 43.6 07/13/20 05:57 Estimated GFR > 60 07/13/20 05:57 Random Glucose 99 mg/dL (60-115) 07/13/20 05:57 Lactic Acid 1.5 mmol/L (0.5-2.0) 07/12/20 15:51 Calcium 7.9 mg/dL (8.4-10.2) L 07/13/20 05:57 Total Bilirubin 0.3 mg/dL (0.0-1.0) 07/12/20 15:51 Total Bilirubin Cancelled 07/12/20 15:51 Direct Bilirubin 0.2 mg/dL (0.0-0.5) 07/12/20 15:51 AST 19 U/L (5-31) 07/12/20 15:51 ALT 21 U/L (0-31) 07/12/20 15:51 Alkaline Phosphatase 131 U/L (39-117) H D 07/12/20 15:51 Total Protein 6.6 g/dL (6.5-8.0) 07/12/20 15:51 Albumin 3.9 g/dL (3.5-5.0) 07/12/20 15:51 Discharge Plan Discharge Patient Disposition: Home Health Service Referrals: Renetta Smalls MD [Primary Care Provider] - Discharge Medications: Continued omeprazole 40 mg capsule,delayed release(DR/EC) 1 cap PO DAILY RF: 0 cholecalciferol (vitamin D3) [Vitamin D3] 125 mcg (5,000 unit) Tablet 125 mcg PO DAILY RF: 0 levothyroxine 112 mcg tablet 56 mcg PO DAILY RF: 0 clopidogrel 75 mg tablet 75 mg PO DAILY RF: 0 aspirin [Adult Low Dose Aspirin] 81 mg tablet,delayed release (DR/EC) 81 mg PO DAILY RF: 0 amlodipine 10 mg tablet 10 mg PO BEDTIME RF: 0 rosuvastatin 40 mg tablet 40 mg PO DAILY RF: 0 Discharge Orders: Discharge Order (Routine); Ordered 07/13/20 Ordered By: Danny Jiménez Diet: advance to usual diet Activity on Discharge: As tolerated Visit Report Forms: Patient Portal Discharge page Care Plan Goals: To stay healthy and out of the hospital. Health Concerns: Aspiration Pneumonia Plan of Treatment: Aspiration Pneumonia - complete antibiotics that were sent by GI doctor If you have fevers, cough or difficulty breathing, call doctors office or come to the hospital
--- NOTE | 2020-07-13 15:28 | MHC.CM.PN ---
PT DISCHARGED HOME SELF-CARE, [id number] TRANSPORTED PT.
== END 2020-07-13 13:43 | disposition home health service (06) | DRG 177 ==
LOC: HO.ED 17:08 → HO.IMC 19:46 → HO.S3 20:18
PROVIDERS: Physician Assistant Medical; Admitting Provider Family Medicine; Emergency Provider Emergency Medicine Emergency Medical Services; PCP Internal Medicine; Visit Provider Family Medicine
DX: J69.0 Pneumonitis due to inhalation of food and vomit (principal); J96.01 Acute respiratory failure with hypoxia; I25.10 Atherosclerotic heart disease of native coronary artery without angina pectoris; D12.4 Benign neoplasm of descending colon; K64.8 Other hemorrhoids; E78.00 Pure hypercholesterolemia, unspecified; E03.9 Hypothyroidism, unspecified; Z87.891 Personal history of nicotine dependence; Z79.02 Long term (current) use of antithrombotics/antiplatelets; Z79.82 Long term (current) use of aspirin; Z79.890 Hormone replacement therapy; Z79.899 Other long term (current) drug therapy
CPT/HCPCS: 36415; 71046; 80048; 80076; 83605; 85025; 85610; 85730; 87040; 87635; 88305; 93005; 94640; 96361; 96365; 99285; J0295; J1650; J2405; J2543; J2765

== ENCOUNTER → 2020-07-16 12:31 | Outpatient (BNVA) | payer MEDICARE, OTHER, SELFPAY | PROVIDERS: PCP Internal Medicine; Visit Provider Physician Assistant | DX: Z13.89 Encounter for screening for other disorder (principal) | CPT/HCPCS: 99212 ==

== ENCOUNTER 2021-03-06 08:24 | Outpatient (REF) | payer MEDICARE, OTHER, SELFPAY ==
[2021-03-06 10:18] LABS: MANUAL DIFF FLAG NO
[2021-03-06 10:21] LABS: Basophils Percent Auto 0.2 % (0-2); Eosinophils Absolute Auto 0.7 X10*3/uL (0.0-0.4); Eosinophils Percent Auto 7.2 % (0-4); Hematocrit 41.3 % (37-47); Hemoglobin 13.1 g/dl (12.0-16.0); Imm Gran Abs Auto 0.04 X10*3/uL (0.00-0.03); Imm Gran Pct Auto 0.4 % (0.0-0.4); Lymphocytes Absolute Auto 2.1 X10*3/uL (1.2-4.9); Lymphocytes Percent Auto 21.6 % (20-40); Mean Corpuscular HGB Conc 31.7 g/dl (31.0-35.0); Mean Corpuscular Hemoglobin 30.8 pg (27.0-33.0); Mean Corpuscular Volume 97.2 fL (80-98); Mean Platelet Volume 10.3 fL (9.4-12.3); Monocytes Absolute Auto 0.8 X10*3/uL (0.1-1.2); Monocytes Percent Auto 8.1 % (2-11); Neutrophils Absolute Auto 6.1 X10*3/uL (2.0-8.3); Neutrophils Percent Auto 62.5 % (45-73); Platelet Count 275 X10*3/uL (160-400); Red Blood Count 4.25 X10*6/uL (4.20-5.50); Red Cell Distribution Width 13.5 % (11.0-16.0); White Blood Count 9.8 X10*3/uL (4.8-10.8)
[2021-03-06 11:07] LABS: Erythrocyte Sedimentation Rate 57 MM/HR (0-20)
[2021-03-06 11:36] LABS: Alanine Aminotransferase 23 U/L (0-31); Albumin Level 4.1 g/dL (3.5-5.0); Alkaline Phosphatase 152 U/L (39-117); Anion Gap 12 (12-20); Aspartate Amino Transferase 21 U/L (5-31); Bilirubin Total 0.5 mg/dL (0.0-1.0); Blood Urea Nitrogen 18 mg/dL (9-16); C Reactive Protein 2.19 mg/dL (< or = 0.50); Calcium 9.9 mg/dL (8.4-10.2); Carbon Dioxide 30 mmol/L (22-29); Chloride 105 mmol/L (96-108); Estimated Glomerular Filt Rate 50; Glucose Random 97 mg/dL (60-115); Potassium 5.1 mmol/L (3.3-5.1); Sodium 142 mmol/L (135-145); Total Protein 7.3 g/dL (6.5-8.0)
== END 2021-03-06 08:25 | disposition home or self-care (01) ==
LOC: HO.LAB 08:24
PROVIDERS: PCP Internal Medicine; Referring Provider Internal Medicine; Visit Provider Physician Assistant
DX: R10.11 Right upper quadrant pain (principal); K58.9 Irritable bowel syndrome, unspecified; Q45.3 Other congenital malformations of pancreas and pancreatic duct; K57.30 Diverticulosis of large intestine without perforation or abscess without bleeding; Z79.899 Other long term (current) drug therapy
CPT/HCPCS: 36415; 80053; 85025; 85652; 86140; 99212

== ENCOUNTER 2021-03-28 12:07 | Outpatient (REF) | payer MEDICARE, OTHER, SELFPAY ==
--- NOTE | ~2021-03-28 | CT_ITS ---
EXAMINATION: CT ABDOMEN AND PELVIS WITH CONTRAST CLINICAL INFORMATION: Diverticulosis of the large intestine. COMPARISON: Previous CT of the abdomen and pelvis April 2020 and MR of the abdomen April 2020 TECHNIQUE: Multidetector volumetric images were obtained from the superior aspect of the liver through the pubic symphysis following administration 85 mL of Omnipaque 350 intravenous contrast. Sagittal and coronal reformatted images were obtained on the technologist's workstation. Oral contrast: Yes. This CT examination was performed using dose optimization techniques as appropriate, variously including the following: *Automated exposure control *Adjustment of mA and/or kV according to patient size (this includes techniques or standardized protocols for targeted exams where dose is matched to indication/reason for exam; i.e. extremities or head) *Use of iterative reconstruction technique DLP: 495 mGy-cm FINDINGS: LUNG BASES: The visualized lung bases are unremarkable. LIVER, GALLBLADDER, AND BILIARY TREE: The liver is normal in size, shape, and attenuation. No focal hepatic lesion or biliary ductal dilatation is present. The gallbladder is unremarkable with no evidence of radiopaque gallstones, gallbladder wall thickening, or obvious pericholecystic inflammatory changes. PANCREAS: There is a multiloculated cyst in the uncinate process of the head of the pancreas. This measures 4.1 x 5 cm in transverse and AP dimension compared to 3.9 x 4.5 cm April 2020 exam. This measures 6 cm in longitudinal dimension compared to 5.7 cm on previous exam. This has several septations. There are smaller adjacent cysts in the uncinate process of the head of the pancreas that do not appear appreciably changed. There is a 1.3 x 1.5 cm cyst in the neck of the pancreas that is increased in size from 0.7 x 0.9 cm on previous exam. There is mild dilatation of the main pancreatic duct measuring maximum 9 mm in the neck of the pancreas compared to 5 mm on previous exam. The pancreas measuring 9 mm. SPLEEN: Unremarkable. ADRENAL GLANDS: Unremarkable. KIDNEYS AND URETERS: There is a 4.5 cm cyst in the left kidney. The kidneys are otherwise unremarkable. BLADDER: Not optimally distended. GASTROINTESTINAL TRACT: There is severe diverticulosis of the colon. There is mild long segment wall thickening of the proximal sigmoid colon and stranding of the surrounding fat questionable for mild sigmoid diverticulitis. No evidence of obstruction, perforation or abscess is seen. There is a small duodenal diverticulum adjacent to the head of the pancreas. Small and large bowel is otherwise unremarkable. The appendix is unremarkable. ABDOMINAL WALL: No significant hernia is appreciated. LYMPH NODES: Normal. VASCULAR: There is evidence of atherosclerotic disease. No aneurysm is seen. PELVIC VISCERA: Unremarkable. OSSEOUS STRUCTURES: There are degenerative changes of the spine. CT/CT abdomen pelvis w con IMPRESSION: Diverticulosis and question mild diverticulitis of the proximal sigmoid colon. Interval increase in size in the complex cystic lesion in the uncinate process of the head of the pancreas. Interval increase in size in the cystic lesion in the neck of the pancreas and dilatation of the main pancreatic duct. Cystic pancreatic neoplasm such as IPMN and serous cystadenoma or cystadenocarcinoma should be considered.
[2021-03-28] MEDS: iohexoL 350 MG/ML 100 ML INFUS..BTL IV (15:07)
[2021-03-28] MEDS: Barium Sulfate Oral (Berry) 450 ML ORAL.SUSP 900 ML PO (15:10)
== END 2021-03-28 12:08 | disposition home or self-care (01) ==
LOC: HO.CT 12:07
PROVIDERS: PCP Internal Medicine; Visit Provider Physician Assistant
DX: R10.9 Unspecified abdominal pain (principal); K57.30 Diverticulosis of large intestine without perforation or abscess without bleeding
CPT/HCPCS: 74177; Q9967

== ENCOUNTER → 2021-09-18 07:53 | Outpatient (BNVA) | payer MEDICARE, OTHER, SELFPAY | PROVIDERS: PCP Internal Medicine; Referring Provider Internal Medicine; Visit Provider Physician Assistant | DX: Q45.3 Other congenital malformations of pancreas and pancreatic duct (principal); D36.9 Benign neoplasm, unspecified site; K57.30 Diverticulosis of large intestine without perforation or abscess without bleeding | CPT/HCPCS: 99212 ==

== ENCOUNTER 2021-12-10 12:28 | Outpatient (REF) | payer MEDICARE, OTHER, SELFPAY ==
[2021-12-10 13:22] LABS: Binax Internal Control QC Valid; Binax Now Covid-19 Ag Negative (Negative)
== END 2021-12-10 12:29 | disposition home or self-care (01) ==
LOC: HO.HMGCLDS 12:28
PROVIDERS: PCP Internal Medicine; Visit Provider Nurse Practitioner Family
DX: Z20.822 Contact with and (suspected) exposure to COVID-19 (principal); J02.9 Acute pharyngitis, unspecified
CPT/HCPCS: 87811

== ENCOUNTER → 2021-12-24 12:10 | Outpatient (BNVA) | payer MEDICARE, OTHER, SELFPAY | PROVIDERS: PCP Internal Medicine; Visit Provider Physician Assistant | DX: Z13.89 Encounter for screening for other disorder (principal) | CPT/HCPCS: Q3014 ==

== ENCOUNTER 2022-01-01 08:06 | Outpatient (REF) | payer MEDICARE, OTHER, SELFPAY ==
--- NOTE | ~2022-01-01 | MR_ITS ---
EXAMINATION: MR ABDOMEN WITHOUT AND WITH CONTRAST CLINICAL INFORMATION: Follow-up pancreatic cyst COMPARISON: Previous CT of the abdomen and pelvis most recent March 2021 and MR of the abdomen April 2020 TECHNIQUE: MR abdomen was performed without and with use of 7.5 mL intravenous Gadavist gadolinium contrast. Postcontrast images are performed in multiphase dynamic sequences. Imaging was performed in 3 planes. FINDINGS: LUNG BASES: The visualized lung bases are unremarkable. LIVER, GALLBLADDER, AND BILIARY TREE: The liver is normal in size, smooth in contour, and normal in signal. No focal hepatic lesion or biliary ductal dilatation is present. The gallbladder is unremarkable with no evidence of gallbladder wall thickening, or obvious pericholecystic inflammatory changes. PANCREAS: There is a complex multiloculated cyst in the uncinate process of the head of the pancreas. Multiple septations. This is increased in size. This measures 4.2 x 5.5 cm in AP and transverse dimension axial T2 image 17 and 18 series 4 compared to 3.5 x 4.5 cm on 2020 exam. This measures 6 cm in length coronal T2 image 12 compared to 5 cm April 2020 exam. This demonstrates demonstrates multiple thin septations. Some septations demonstrate mild enhancement. No solid component or mural nodule is seen. There is mild focal dilatation of the main pancreatic duct measuring up to 6 mm in the body of the pancreas. There is an adjacent 8 x 9 mm cyst in the body the pancreas adjacent to the main pancreatic duct. SPLEEN: Normal. ADRENAL GLANDS: Normal. KIDNEYS AND URETERS: There is a 6 cm cyst exophytic to the posterior upper pole of the left kidney. The kidneys are normal in size, shape, and enhance symmetrically. No hydronephrosis. No perinephric stranding. GASTROINTESTINAL TRACT: There is diverticulosis of the colon. No bowel obstruction. No ascites or fluid collection. ABDOMINAL WALL: No significant hernia is appreciated. LYMPH NODES: No lymphadenopathy. VASCULAR: Unremarkable. OSSEOUS STRUCTURES: Marrow signal normal. There are degenerative changes of the spine. MR/MR abdomen wo/w con IMPRESSION: Interval increase in size in the complex multiloculated cyst in the uncinate process of the head of the pancreas with mild septal enhancement. Pancreatic neoplasm should be considered. Surgical consultation recommended. Stable focal mild dilatation of the main pancreatic duct in the body the pancreas and separate 8 x 9 mm cyst. Left renal cyst. Diverticulosis of the colon.
== END 2022-01-01 08:07 | disposition home or self-care (01) ==
LOC: HO.MRI 08:06
PROVIDERS: Visit Provider Physician Assistant
DX: Q45.3 Other congenital malformations of pancreas and pancreatic duct (principal); N28.1 Cyst of kidney, acquired; K57.30 Diverticulosis of large intestine without perforation or abscess without bleeding
CPT/HCPCS: 74183; A9585

== ENCOUNTER → 2022-01-07 07:33 | Outpatient (BNVA) | payer MEDICARE, OTHER, SELFPAY | PROVIDERS: PCP Internal Medicine; Visit Provider Physician Assistant | DX: K59.09 Other constipation (principal); Q45.3 Other congenital malformations of pancreas and pancreatic duct | CPT/HCPCS: Q3014 ==

== ENCOUNTER 2022-02-27 09:09 | Outpatient (REF) | payer MEDICARE, OTHER, SELFPAY ==
[2022-02-27 09:26] LABS: MANUAL DIFF FLAG NO
[2022-02-27 09:40] LABS: Basophils Percent Auto 0.3 % (0-2); Eosinophils Absolute Auto 0.2 X10*3/uL (0.0-0.4); Eosinophils Percent Auto 2.4 % (0-4); Hematocrit 33.8 % (37.0-47.0); Hemoglobin 10.7 g/dl (12.0-16.0); Imm Gran Abs Auto 0.04 X10*3/uL (0.00-0.03); Imm Gran Pct Auto 0.4 % (0.0-0.4); Lymphocytes Absolute Auto 2.1 X10*3/uL (1.2-4.9); Lymphocytes Percent Auto 20.5 % (20-40); Mean Corpuscular HGB Conc 31.7 g/dl (31.0-35.0); Mean Corpuscular Hemoglobin 29.1 pg (27.0-33.0); Mean Corpuscular Volume 91.8 fL (80.0-98.0); Mean Platelet Volume 9.6 fL (9.4-12.3); Monocytes Percent Auto 10.4 % (2-11); Neutrophils Absolute Auto 6.6 x10*3/uL (2.0-8.3); Platelet Count 320 X10*3/uL (160-400); Red Blood Count 3.68 X10*6/uL (4.20-5.50); Red Cell Distribution Width 13.7 % (11.0-16.0)
[2022-02-27 10:08] LABS: C Reactive Protein 5.61 mg/dL (< or = 0.50)
[2022-02-27 10:39] LABS: Erythrocyte Sedimentation Rate 95 MM/HR (0-20)
== END 2022-02-27 09:10 | disposition home or self-care (01) ==
LOC: HO.LAB 09:09
PROVIDERS: Visit Provider Ophthalmology
DX: N28.0 Ischemia and infarction of kidney (principal)
CPT/HCPCS: 36415; 85025; 85652; 86140

== ENCOUNTER → 2022-03-06 09:53 | Outpatient (BNVA) | payer MEDICARE, OTHER, SELFPAY | PROVIDERS: Referring Provider Ophthalmology; Visit Provider Surgery | DX: M31.6 Other giant cell arteritis (principal) | CPT/HCPCS: 99202 ==

== ENCOUNTER 2022-03-12 08:54 | Day surgery (SDC) | payer MEDICARE, OTHER, SELFPAY ==
[2022-03-10 09:49] VITALS: BMI 31.7
--- NOTE | 2022-03-10 12:27 | P.CONAN_ITS ---
Documented by User: Ada Pérez NP 03/11/22 11:00 HPI - Anesthesia Eval Consult details Narrative: 81yo F for Right Temporal Artery Biopsy Prednisone 60mg daily CAD s/p stent 10/2018. Still on dual antiplatelet. Per cardiology, OK to hold plavix. Cont ASA periop. 06/2020 [place] with MAC. Vomited during procedure with + aspiration pna. Admitted overnight for observation. 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) Past Medical History Medical History Abdominal pain Atypical ductal hyperplasia of left breast Constipation Coronary artery disease Diverticulosis of colon History of anesthesia problem History of diverticulitis Hx of gastritis Hypercholesterolemia Hypertension Incontinence of feces Left bundle branch block (LBBB) Pancreatic mass Family History Family History Mother Gastric cancer Surgical History Surgical History History of esophagogastroduodenoscopy (EGD) History of eye surgery History of heart artery stent History of left breast biopsy History of parotid gland removal Hx of bilateral cataract extraction Hx of colonoscopy Hx of dilation and curettage Social History Social History Household Members: None Housing: House Are you a primary healthcare consultant to a significant other at home: No Do you presently have visiting nurse or other home services: No Alcohol intake: never Patient Tobacco Use Status: Former Tobacco user Quit Date: 2010 Tobacco use type: Cigarette Have you been hit, kicked, punched, or otherwise hurt by someone within the past year? If so, by whom?: No Are you DNR?: No Advance Directives: Yes Advance Directives Information Provided: No Advance Directives on File: Yes Advance Directives Date on File: 04/30/20 Recently lost weight without trying: No Nutrition Risks: Surgical patient >75years service: No Current occupational status: retired Meds Allergies Allergy/AdvReac Type Severity Reaction Status Date / Time No Known Allergies Allergy Verified 03/10/22 09:42 [No Known Allergies*] Home Medications Medication Instructions Recorded Confirmed Last Taken Type amlodipine 10 mg tablet 10 mg PO BEDTIME 06/12/20 03/10/22 Unknown History aspirin 81 mg tablet,delayed 81 mg PO DAILY 06/12/20 03/10/22 07/11/20 History release (Adult Low Dose Aspirin) clopidogrel 75 mg tablet 75 mg PO DAILY 06/12/20 03/10/22 03/07/22 08:00 History levothyroxine 112 mcg tablet 112 mcg PO DAILY 06/12/20 03/10/22 07/12/20 06:00 History rosuvastatin 40 mg tablet 40 mg PO DAILY 06/12/20 03/10/22 Unknown History docusate sodium 100 mg capsule 100 mg PO BID 03/06/21 03/10/22 Unknown History (Colace) losartan 50 mg tablet 50 mg PO DAILY 03/06/21 03/10/22 Unknown History hydralazine 25 mg tablet 25 mg PO BID 03/06/22 03/10/22 Unknown History prednisone 20 mg tablet 60 mg PO DAILY 03/06/22 03/10/22 Unknown History Miralax PO BEDTIME 03/10/22 Unknown History cholecalciferol (vitamin D3) 25 25 mcg PO DAILY 03/10/22 03/10/22 Unknown History mcg (1,000 unit) capsule (Vitamin D3) Exam Exam Date and Time: March 10, 2022 1227 Height,Weight and Vital Signs: Height 4 ft 10 in Weight 68.946 kg Pertinent Lab Results Pertinent Lab Results: Laboratory Tests 02/27/22 09:26 WBC 10.0 Hgb 10.7 L Hct 33.8 L Plt Count 320 Documented by User: Lizzie Rodney MD 03/12/22 09:27 [facility] Past Medical History Medical History Abdominal pain Atypical ductal hyperplasia of left breast Constipation Coronary artery disease Diverticulosis of colon History of anesthesia problem History of diverticulitis Hx of gastritis Hypercholesterolemia Hypertension Incontinence of feces Left bundle branch block (LBBB) Pancreatic mass Functional capacity: independent ambulation Patient : No Family History Family History Mother Gastric cancer Surgical History Surgical History History of esophagogastroduodenoscopy (EGD) History of eye surgery History of heart artery stent History of left breast biopsy History of parotid gland removal Hx of bilateral cataract extraction Hx of colonoscopy Hx of dilation and curettage History of Problems with Anesthesia: No Social History Social History Household Members: None Housing: House Are you a primary healthcare consultant to a significant other at home: No Do you presently have visiting nurse or other home services: No Alcohol intake: never Patient Tobacco Use Status: Former Tobacco user Quit Date: 2010 Tobacco use type: Cigarette Have you been hit, kicked, punched, or otherwise hurt by someone within the past year? If so, by whom?: No Are you DNR?: No Advance Directives: Yes Advance Directives Information Provided: No Advance Directives on File: Yes Advance Directives Date on File: 04/30/20 Recently lost weight without trying: No Nutrition Risks: Surgical patient >75years service: No Current occupational status: retired [employer] Allergies Allergy/AdvReac Type Severity Reaction Status Date / Time No Known Allergies Allergy Verified 03/10/22 09:42 [No Known Allergies*] Home Medications Medication Instructions Recorded Confirmed Last Taken Type amlodipine 10 mg tablet 10 mg PO BEDTIME 06/12/20 03/10/22 Unknown History aspirin 81 mg tablet,delayed 81 mg PO DAILY 06/12/20 03/10/22 07/11/20 History release (Adult Low Dose Aspirin) clopidogrel 75 mg tablet 75 mg PO DAILY 06/12/20 03/10/22 03/07/22 08:00 History levothyroxine 112 mcg tablet 112 mcg PO DAILY 06/12/20 03/10/22 07/12/20 06:00 History rosuvastatin 40 mg tablet 40 mg PO DAILY 06/12/20 03/10/22 Unknown History docusate sodium 100 mg capsule 100 mg PO BID 03/06/21 03/10/22 Unknown History (Colace) losartan 50 mg tablet 50 mg PO DAILY 03/06/21 03/10/22 Unknown History hydralazine 25 mg tablet 25 mg PO BID 03/06/22 03/10/22 Unknown History prednisone 20 mg tablet 60 mg PO DAILY 03/06/22 03/10/22 Unknown History Miralax PO BEDTIME 03/10/22 Unknown History cholecalciferol (vitamin D3) 25 25 mcg PO DAILY 03/10/22 03/10/22 Unknown History mcg (1,000 unit) capsule (Vitamin D3) Exam Airway Mallampati Class: III TM Dist: >3cm Neck ROM: Full Heart: RRR Assessment and Plan Final Anesthetic Review History of Problems with Anesthesia: No
[2022-03-12] VITALS (7 sets, daily range): BP systolic 124–178; BP diastolic 43–56; PULSE 74–78; RESP 16–17; TEMP 36.1–36.6; O2SAT 95–98
[2022-03-12] MEDS: Lactated Ringers 1,000 ML 100 ML IVCONT (09:52)
--- NOTE | 2022-03-12 11:02 | HO.ANESPROP2 ---
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) Past Medical History Medical History Abdominal pain Atypical ductal hyperplasia of left breast Constipation Coronary artery disease Diverticulosis of colon History of anesthesia problem History of diverticulitis Hx of gastritis Hypercholesterolemia Hypertension Incontinence of feces Left bundle branch block (LBBB) Pancreatic mass Functional capacity: independent ambulation Family History Family History Mother Gastric cancer Surgical History Surgical History History of esophagogastroduodenoscopy (EGD) History of eye surgery History of heart artery stent History of left breast biopsy History of parotid gland removal Hx of bilateral cataract extraction Hx of colonoscopy Hx of dilation and curettage History of Problems with Anesthesia: No Social History Social History Household Members: None Housing: House Are you a primary care transition coordinator to a significant other at home: No Do you presently have visiting nurse or other home services: No Alcohol intake: never Patient Tobacco Use Status: Former Tobacco user Quit Date: 2010 Tobacco use type: Cigarette Have you been hit, kicked, punched, or otherwise hurt by someone within the past year? If so, by whom?: No Are you DNR?: No Advance Directives: Yes Advance Directives Information Provided: No Advance Directives on File: Yes Advance Directives Date on File: 04/30/20 Recently lost weight without trying: No Nutrition Risks: Surgical patient >75years Patient : No service: No Current occupational status: retired Meds Allergies Allergy/AdvReac Type Severity Reaction Status Date / Time No Known Allergies Allergy Verified 03/10/22 09:42 [No Known Allergies*] Active Medications: Current Medications Lactated Ringer's (Lr) 1,000 mls @ 100 mls/hr IVCONT .Q10H AGATA Last Admin: 03/12/22 09:52 Dose: 100 mls/hr Home Medications Medication Instructions Recorded Confirmed Last Taken Type amlodipine 10 mg tablet 10 mg PO BEDTIME 06/12/20 03/10/22 03/11/22 History aspirin 81 mg tablet,delayed 81 mg PO DAILY 06/12/20 03/10/22 03/11/22 History release (Adult Low Dose Aspirin) clopidogrel 75 mg tablet 75 mg PO DAILY 06/12/20 03/10/22 03/07/22 History levothyroxine 112 mcg tablet 112 mcg PO DAILY 06/12/20 03/10/22 03/12/22 History rosuvastatin 40 mg tablet 40 mg PO DAILY 06/12/20 03/10/22 03/11/22 History docusate sodium 100 mg capsule 100 mg PO BID 03/06/21 03/10/22 03/11/22 History (Colace) losartan 50 mg tablet 50 mg PO DAILY 03/06/21 03/10/22 03/11/22 History hydralazine 25 mg tablet 25 mg PO BID 03/06/22 03/10/22 03/12/22 History prednisone 20 mg tablet 60 mg PO DAILY 03/06/22 03/10/22 03/12/22 History Miralax PO BEDTIME 03/10/22 Unknown History cholecalciferol (vitamin D3) 25 25 mcg PO DAILY 03/10/22 03/10/22 Unknown History mcg (1,000 unit) capsule (Vitamin D3) Exam Exam Date and Time: March 12, 2022 1102 Height,Weight and Vital Signs: Height 4 ft 10 in Weight 68.946 kg Last Vital Signs Temp 97.2 F 03/12/22 09:36 Pulse 76 03/12/22 09:36 Resp 17 03/12/22 09:36 BP 174/47 H 03/12/22 09:36 Pulse Ox 98 03/12/22 09:36 O2 Del Method 03/12/22 09:36 Airway Mallampati Class: II TM Dist: >3cm Denture: Lower Heart: RRR Lungs: CTA Assessment and Plan Final Anesthetic Review History of Problems with Anesthesia: No ASA Class: III Final Preanesthetic Review: No Changes in Pt Med Stat, Meds/Allgs Chart Reviewed, Consent Obtained/Reviewed and Anes Risks/Benef Reviewed Patient Risk: Intermediate Procedure Risk: Low Anesthetic Plan Anesthetic Plan: GA Disposition: Standard PACU
--- NOTE | 2022-03-12 11:11 | P.OP_ITS ---
Operative Note Operative Note Date of Service: 03/12/22 Narrative: Preoperative diagnosis:Possible Giant Cell Arteritis Postoperative diagnosis:same Procedure:Right superficial temporal artery biopsy Surgeon: Sergio Hussein MD Forest Fire Officer: ETIENNE Alcazar Anesthesia:General LMA Indications for procedure: 81-year-old female patient presenting with complaints of visual disturbance in the right eye in the lower gutiérrez presenting for yazdanism artery biopsy to rule out possible giant cell arteritis Operative findings: Normal-appearing superficial temporal artery. Specimen: Superficial temporal artery Estimated blood loss: Less than 1 mL Complications: None Procedure details: The patient was brought to the OR placed in a supine position. After administering general anesthesia the patient's right scalp was prepped with Betadine and draped in a sterile fashion. A surgical time-out was called the consent confirmed. Patient received preoperative antibiotics and Venodyne boots were in place. The course of the superficial temporal artery was marked using a skin scribe and palpation. Local anesthesia was then infiltrated over this site. Incision was then made with a scalpel and a pre-auricular location extending up the scalp measuring approximately 4 cm. This was carried out through subcutaneous tissue up to the superficial temporal artery. Careful dissection was then used using a mosquito hemostat to dissect to the superficial temporal artery. A sub tie was placed around the artery and proximal and distal dissection performed. The artery was then ligated with a 4-0 silk suture both proximally and distally. The artery was then excised and sent to pathology for further examination. After assuring adequate hemostasis with electrocautery the skin was reapproximated using interrupted 4-0 nylon sutures. Bacitracin was then applied. The patient tolerated the procedure well. Sponge, instrument, and needle counts reported as correct. Patient was transferred to PACU in stable condition.
--- NOTE | 2022-03-12 14:35 | HO.POSTANES ---
Post Anesthesia Evaluation Post Anesthesia Evaluation Vital Signs: Vital Signs Temp Pulse Resp BP Pulse Ox O2 Del Method O2 Flow Rate 03/12/22 12:02 74 16 146/43 H 96 Room Air 03/12/22 11:47 77 16 168/50 H 95 Room Air 03/12/22 11:32 98 F 74 16 178/46 H 96 Nasal Cannula 2 03/12/22 11:27 78 16 171/54 H 98 Nasal Cannula 4 03/12/22 11:22 76 16 172/51 H 98 Nasal Cannula 4 03/12/22 11:17 97 F 78 16 124/56 L 96 Nasal Cannula 4 03/12/22 09:36 97.2 F 76 17 174/47 H 98 Room Air Anesthesia: General Endotracheal-GETA Mental Status: Awake Pain Control: Satisfactory Nausea/Vomiting: None Hydration: Adequate Anesthesia-Related Issues: No Anes. Related Issues
== END 2022-03-12 12:43 | disposition home or self-care (01) ==
PROVIDERS: PCP Family Medicine; Visit Provider Surgery
PROC: (CPT 37609; principal; 2022-03-12 10:40)
DX: M31.6 Other giant cell arteritis (principal); R70.0 Elevated erythrocyte sedimentation rate; R51.9 Headache, unspecified; I25.10 Atherosclerotic heart disease of native coronary artery without angina pectoris; Z98.61 Coronary angioplasty status; I10 Essential (primary) hypertension; I44.7 Left bundle-branch block, unspecified; E78.00 Pure hypercholesterolemia, unspecified; K86.9 Disease of pancreas, unspecified; R15.9 Full incontinence of feces; Z87.891 Personal history of nicotine dependence; Z79.82 Long term (current) use of aspirin; Z79.899 Other long term (current) drug therapy
CPT/HCPCS: 37609; 88305; J0690; J1100; J2250; J2405; J2795; J3010

== ENCOUNTER → 2022-03-18 09:36 | Outpatient (BNVA) | payer MEDICARE, OTHER, SELFPAY | PROVIDERS: PCP Family Medicine; Visit Provider Surgery | DX: Z48.02 Encounter for removal of sutures (principal); M31.6 Other giant cell arteritis | CPT/HCPCS: 99212 ==

== ENCOUNTER 2022-04-21 11:36 | Inpatient (IN) | payer MEDICARE, OTHER, SELFPAY ==
--- NOTE | ~2022-04-21 | CT_ITS ---
EXAMINATION: CT CHEST WITHOUT CONTRAST CLINICAL INFORMATION: Dyspnea. Congestive heart failure. Question presence of obstructive pulmonary disease, pneumonia. COMPARISON: CXR from 04/23/2022. TECHNIQUE: Multidetector volumetric CT imaging of the chest was done. Axial MIP volume rendering provided. Sagittal and coronal reformatted images were obtained. This CT examination was performed using dose optimization techniques as appropriate, variously including the following: *Automated exposure control *Adjustment of mA and/or kV according to patient size (this includes techniques or standardized protocols for targeted exams where dose is matched to indication/reason for exam; i.e. extremities or head) *Use of iterative reconstruction technique DLP: 169 mGy-cm FINDINGS: LUNGS AND PLEURA: Trachea and central airways are widely patent and normal in caliber. Mild centrilobular emphysema. Smooth thickening of interlobular septa in both lungs from interstitial edema. Small bilateral pleural effusions are present. Atelectasis in the dependent aspect of each lung. Lungs have heterogeneous attenuation. Patchy groundglass opacities are predominantly observed in the right lung more so than left lung. This could represent asymmetric distribution of pulmonary edema, although a superimposed infectious pneumonitis may be considered if in the proper clinical context of recent onset fever and leukocytosis. CARDIOVASCULAR: Cardiac chambers are normal in size. Mitral valve annulus is calcified. Three-vessel coronary artery atherosclerotic calcification is present. Small pericardial effusion. Thoracic aorta atherosclerosis without aneurysm. Pulmonary arteries are normal in caliber. MEDIASTINUM AND LOWER NECK: The esophagus an thyroid gland are unremarkable. No mediastinal mass. LYMPHATICS: No axillary or internal mammary lymphadenopathy. The mediastinal lymph nodes are in the normal size range. No evidence of hilar lymphadenopathy on this noncontrast examination. UPPER ABDOMEN: Adrenal glands are normal. No acute findings in the visualized portion of the upper abdomen. SKELETAL AND CHEST WALL: Mild and moderate multilevel discovertebral degenerative change of the visualized spine. No suspicious bone lesions. CT/CT chest wo IV con IMPRESSION: * Three-vessel coronary artery atherosclerotic disease, pulmonary edema and small bilateral pleural effusions. * The groundglass opacities predominantly observed in the right lung could represent asymmetric distribution of pulmonary edema. Any superimposed pneumonia may need to be excluded on the basis of clinical criteria. * Mild pulmonary emphysema.
--- NOTE | ~2022-04-21 | XR_ITS ---
EXAMINATION: XR CHEST CLINICAL INFORMATION: Shortness breath COMPARISON: Previous day TECHNIQUE: Frontal view of the chest was obtained. FINDINGS: Cardiomegaly and pulmonary venous congestion. Diffuse mild bronchial wall thickening. Small bilateral pleural effusions suspected, layering. No discrete consolidation. No pneumothorax. XR/XR chest 1V IMPRESSION: Diffuse mild bronchial wall thickening redemonstrated. Small layering bilateral pleural effusions.
--- NOTE | ~2022-04-21 | CT_ITS ---
EXAMINATION: CT ABDOMEN AND PELVIS WITHOUT CONTRAST CLINICAL INFORMATION: Abdominal pain COMPARISON: MR abdomen 01/01/2022. CT scan abdomen pelvis 03/28/2021 TECHNIQUE: Multidetector volumetric imaging was performed from the superior aspect of the liver through the pubic symphysis. Sagittal and coronal reformatted images were obtained on the technologist's workstation. This CT examination was performed using dose optimization techniques as appropriate, variously including the following: *Automated exposure control *Adjustment of mA and/or kV according to patient size (this includes techniques or standardized protocols for targeted exams where dose is matched to indication/reason for exam; i.e. extremities or head) *Use of iterative reconstruction technique DLP: 568 mGy-cm FINDINGS: LUNG BASES: Heart size is enlarged. Trace pericardial effusion There are scattered calcifications of the coronary arteries. Mitral valve annulus calcification. LIVER, GALLBLADDER, AND BILIARY TREE: The liver is normal in size, shape, and attenuation. No focal hepatic lesion or biliary ductal dilatation is present. The gallbladder is unremarkable with no evidence of radiopaque gallstones, gallbladder wall thickening, or obvious pericholecystic inflammatory changes. PANCREAS: Redemonstration of the large cystic lesion at the head and uncinate process of the pancreas measuring 3.8 cm transverse. Density measurement 9 Hounsfield units. This is unchanged since MR study of 01/01/2022. Smaller cyst at the body of the pancreas not well seen. No inflammation around the pancreas. No pancreatic duct dilatation. SPLEEN: Unremarkable. ADRENAL GLANDS: Unremarkable. KIDNEYS AND URETERS: The kidneys are normal in size, shape, and attenuation. No hydronephrosis, hydroureter, or calculi seen. No perinephric stranding. 4.6 cm exophytic simple cyst left kidney midpole. This is unchanged since MR study 01/01/2022. No follow-up imaging is recommended for simple renal cyst. BLADDER: Unremarkable. GASTROINTESTINAL TRACT: There are is bowel wall thickening and pericolonic edema involving the mid to distal sigmoid colon. There are scattered diverticula throughout the colon. Findings consistent with a diverticulitis. No perforation or abscess. No bowel obstruction. Small volume of scattered stool in the colon. The appendix is normal. The small bowel loops are unremarkable. ABDOMINAL WALL: No significant hernia is appreciated. LYMPH NODES: Normal. VASCULAR: Extensive vascular calcifications in the abdomen and the pelvis. There is no aneurysm. PELVIC VISCERA: Unremarkable. OSSEOUS STRUCTURES: Unremarkable. CT/CT abdomen pelvis wo IV con IMPRESSION: 1. Mild to moderate diverticulitis of the sigmoid colon. No abscess or obstruction. 2. Cardiomegaly. Small pericardial effusion. 3. Stable pancreatic cystic lesion. 4. Stable hepatic cysts. No follow-up imaging is recommended for simple renal cyst. Fleischner guidelines were followed.
--- NOTE | ~2022-04-21 | XR_ITS ---
EXAMINATION: XR CHEST CLINICAL INFORMATION: Shortness of breath, chest pain COMPARISON: 07/12/2020 TECHNIQUE: Frontal view of the chest was obtained. FINDINGS: Heart is top normal in size. Atherosclerotic calcifications seen in the aorta.. Diffusely increased coarse interstitial markings seen in the bilateral lung parenchyma. No focal airspace consolidations or pleural effusions. XR/XR chest 1V IMPRESSION: Cardiomegaly with increased coarse interstitial thickening. Cannot exclude interstitial edema. No focal infiltrate
--- NOTE | ~2022-04-21 | XR_ITS ---
EXAMINATION: XR CHEST CLINICAL INFORMATION: Shortness of breath COMPARISON: Previous day TECHNIQUE: Frontal view of the chest was obtained. FINDINGS: Cardiomegaly and pulmonary venous congestion. There is diffuse bronchial wall thickening with developing streaky airspace opacity in the right lung and left lower lung. No pleural effusion or pneumothorax. XR/XR chest 1V IMPRESSION: Developing diffuse bronchial wall thickening and streaky airspace opacities bilaterally more pronounced on the right suggestive of an atypical pneumonitis.
[2022-04-21 14:35] VITALS: BP 103/64; PULSE 100; RESP 18; TEMP 36.8; O2SAT 93; BMI 31.4
[2022-04-21 14:49] LABS: Hematocrit 31.8 % (37.0-47.0); Hemoglobin 9.8 g/dl (12.0-16.0); Mean Corpuscular HGB Conc 30.8 g/dl (31.0-35.0); Mean Corpuscular Hemoglobin 29.4 pg (27.0-33.0); Mean Corpuscular Volume 95.5 fL (80.0-98.0); Mean Platelet Volume 9.6 fL (9.4-12.3); Platelet Count 249 X10*3/uL (160-400); Red Blood Count 3.33 X10*6/uL (4.20-5.50); White Blood Count 9.7 X10*3/uL (4.8-10.8)
[2022-04-21 15:12] LABS: Alanine Aminotransferase 18 U/L (0-31); Albumin Level 3.7 g/dL (3.5-5.0); Alkaline Phosphatase 105 U/L (39-117); Anion Gap 18 (12-20); Aspartate Amino Transferase 15 U/L (5-31); Bilirubin Direct 0.4 mg/dL (0.0-0.5); Bilirubin Total 0.7 mg/dL (0.0-1.0); Blood Urea Nitrogen 27 mg/dL (9-16); Calcium 9.5 mg/dL (8.4-10.2); Carbon Dioxide 25 mmol/L (22-29); Chloride 104 mmol/L (96-108); Creatinine Clr Calc Pharmacy 26.4; Estimated Glomerular Filt Rate 34; Glucose Random 128 mg/dL (60-115); Lipase 11 U/L (8-78); Potassium 4.4 mmol/L (3.3-5.1); Sodium 143 mmol/L (135-145); Total Protein 6.2 g/dL (6.5-8.0)
[2022-04-21 17:30] LABS: Troponin-I High Sensitivity 52.3 ng/L (<3.5-17.0)
[2022-04-21 20:08] VITALS: BP 142/45; PULSE 87; RESP 20; TEMP 37.2; O2SAT 96
--- NOTE | 2022-04-21 20:15 | ECG_ITS ---
Test Reason : cp Blood Pressure : / mmHG Vent. Rate : 081 BPM Atrial Rate : 081 BPM P-R Int : 130 ms QRS Dur : 138 ms QT Int : 426 ms P-R-T Axes : 054 -07 086 degrees QTc Int : 494 ms Normal sinus rhythm Left bundle branch block Abnormal ECG When compared with ECG of 12-JUL-2020 13:17, No significant change was found Referred By: Franca Roberto Electronically Signed By:ROCKY GONZALEZ
--- NOTE | 2022-04-21 20:22 | ED.ABDPAIN ---
HPI - Abdominal Pain General Chief Complaint: Abdominal Pain Stated Complaint: Low Abd Pain Loose Stool Time Seen by Provider: 04/21/22 16:27 Source: patient and family Mode of arrival: ambulatory Limitations: no limitations History of Present Illness HPI narrative: 81-year-old female with a past medical history of CAD c Cardiac stent, HTN, hypercholesterolemia, hx of diverticulosis/diverticulitis, Hx of gastritis, incontinence of feces and pancreatic mass who is being followed by Gastroenterology by Quentin Ashraf PA-C to r/o pancreatic malignanc presenting to the ED with family at bedside with complaints of left lower quadrant abdominal pain with associated constipation and increased urinary frequency since Thursday worse today. Reports that on Thursday she tried to have a bowel movement and she had loose stools although they were not diarrhea. They are a normal brown color. Although not her normal stools. She reports despite having this loose stool she is still having left lower quadrant abdominal pain radiating to her suprapubic/right lower quadrant. She reports today she had 1 episode of vomiting. She reports while she was in the waiting room she started to have chest pain she reports as ?a tinge in the middle of my chest it barely hurts?. She denies radiation of this chest pain. She reports she is currently on prednisone that she was started on for a biopsy to rule out temporal arteritis and she was negative. Although they explained to her that she should continue the steroids as she had already started them. She reports that this may be the reason why her legs are swollen. I asked her if she was short of breath due to she appeared short of breath and patient denies any shortness of breath. She also reports she had a colonoscopy in 2017. She denies any fevers, chills, dizziness, headaches, neck pain/stiffness, dyspnea on exertion, orthopnea, palpitations, paresthesias, nausea, black or bloody stools, radiation of the abdominal pain, dysuria, hematuria, abnormal vaginal discharge, rashes, recent travel or sick contacts, recent antibiotic usage, possible bad food exposure, others with similar symptoms or any other symptoms complaints or concerns at this time. MD elicited complaint: abdominal pain Pertinent past history: diverticulitis and gastritis Onset (ago): day(s) (2) Pain Consistency: constant Location: LLQ Severity: moderate Quality: cramping Radiation: RLQ and suprapubic Exacerbating factors: nothing Relieving factors: nothing Associated symptoms: vomiting, constipation and other (Chest Pain ) Related Data Home Medications Medication Instructions Recorded Confirmed amlodipine 10 mg tablet 10 mg PO BEDTIME 06/12/20 04/21/22 aspirin 81 mg tablet,delayed 81 mg PO DAILY 06/12/20 04/21/22 release (Adult Low Dose Aspirin) levothyroxine 112 mcg tablet 112 mcg PO DAILY 06/12/20 04/21/22 rosuvastatin 40 mg tablet 40 mg PO DAILY 06/12/20 04/21/22 hydralazine 25 mg tablet 25 mg PO BID 03/06/22 04/21/22 cholecalciferol (vitamin D3) 25 25 mcg PO DAILY 03/10/22 04/21/22 mcg (1,000 unit) capsule (Vitamin D3) losartan 100 mg tablet 1 tab PO DAILY 04/21/22 04/21/22 omeprazole 20 mg capsule,delayed 1 cap PO DAILY 04/21/22 04/21/22 release polyethylene glycol 3350 17 gram 17 g PO BEDTIME 04/21/22 04/21/22 oral powder packet (Miralax) prednisone 5 mg tablet See Rx Instructions .Route .COMPLEX 04/21/22 04/21/22 Allergies Allergy/AdvReac Type Severity Reaction Status Date / Time No Known Allergies Allergy Verified 03/18/22 09:45 [No Known Allergies*] Review of Systems Review of Systems Constitutional : No Weight loss, No Fever, No Chills, No Night Sweats, No Fatigue, No Malaise ENT/Mouth : No Hearing loss, No Ear Pain, No Nasal Congestion, No Sinus Pain, No Hoarseness, No sore throat, No Rhinorrhea, No Swallowing Difficulty Eyes: No Eye Pain, No Swelling, No Redness, No Foreign Body, No Discharge, No Vision Changes Cardiovascular : + Chest Pain, No SOB, No Dyspnea on Exertion, No Orthopnea, + LE Edema, No Palpitations Respiratory : No Cough, No Sputum, No Wheezing, No Smoke Exposure, No Dyspnea Gastrointestinal : No Nausea, + Vomiting, + Diarrhea, + Constipation, + abdominal Pain, No Hematochezia, No Melena Genitourinary : no irregular bleeding, No Dysuria, No Urinary Frequency, No Hematuria, No Urinary Incontinence, No Urgency, No Flank Pain, No Urinary Flow Changes, No Hesitancy Musculoskeletal : No joint pain, No Myalgias, No Joint Swelling Skin : No Skin Lesions, No rash Neuro : No Weakness, No Numbness, No Paresthesias, No Loss of Consciousness, No Dizziness, No Headache Psych : No Anxiety/Panic, No Depression, No SI/HI/AH/VH, No Social Issues, Heme/Lymph: No Bruising, No Bleeding,No Lymphadenopathy Endocrine : No Polyuria, No Polydipsia, No Temperature Intolerance Yes all other systems are reviewed and are negative [facility] Past Medical History Attestation statement: The following information was validated with the patient. Source: old records reviewed, obtained from family and nursing notes reviewed Medical History Abdominal pain Atypical ductal hyperplasia of left breast Constipation Coronary artery disease Diverticulosis of colon History of anesthesia problem History of diverticulitis Hx of gastritis Hypercholesterolemia Hypertension Incontinence of feces Left bundle branch block (LBBB) Pancreatic mass Surgical History History of esophagogastroduodenoscopy (EGD) History of eye surgery History of heart artery stent History of left breast biopsy History of parotid gland removal Hx of bilateral cataract extraction Hx of colonoscopy Hx of dilation and curettage Family History Family History Mother Gastric cancer Social History Social History Household Members: None Housing: House Are you a primary assurance services manager health care to a significant other at home: No Do you presently have visiting nurse or other home services: No Alcohol intake: never Patient Tobacco Use Status: Former Tobacco user Quit Date: 2010 Tobacco use type: Cigarette Advance Directives: No Advance Directives Date on File: 04/30/20 service: No Current occupational status: retired Physical Exam ED Vital Signs: Vital Signs - 24 hr 04/21/22 14:35 04/21/22 20:08 Temperature 98.3 F 98.9 F Pulse Rate 100 87 Respiratory Rate 18 20 Blood Pressure 103/64 142/45 H Pulse Oximetry 93 96 Oxygen Delivery Method Room Air Room Air BMI result Body Mass Index 31.4 vital signs have been reviewed as normal and appeared to be correct. Blood pressure normal. Heart rate normal. Respiration rate normal. Temperature normal. Oxygen saturation normal. Appearance: Alert. Oriented X3. No acute distress. Head: Normal external exam. Normocephalic. Atraumatic. Eyes: PERRLA. EOMI. Conjunctiva and sclera normal. Eyelids normal. ENT: Pharynx normal. Uvula midline. Moist mucous membranes. Normal voice. Neck: Normal inspection. Neck supple. FROM. No adenopathy. Thyroid Normal. No tracheal deviation noted. No crepitus is noted. No meningeal signs. No neck mass noted. No signs of trauma noted. CVS: Normal heart rate and rhythm. Heart sound normal. Pulses normal throughout. No murmurs/rales/gallops. Respiratory: No respiratory distress. Painless inspiration. Breath sounds normal. No wheezes/rales/rhonchi noted. Chest nontender. No crepitus is noted. No signs of trauma noted. No accessory muscle usage noted or decreased air movement noted. No signs of trauma. Abdomen: Soft and Moderate TTP to LLQ/in suprapubic area with guarding. Bowel sounds normal in all 4 quadrants. No distention noted. No organomegaly noted. No visible injury noted. Negative Rovsing test. Negative psoas test. Negative obturator's chest. Negative Cobian's test. Rectal: Patient noted to have external hemorrhoids. Non thrombosed. No active bleeding. Normal brown color stool soft. Back: No CVA tenderness. Full range of motion noted. Nontender. Patient neuro intact bilaterally and distally on all 4 extremities. Patient's reflexes intact bilaterally and distally on all 4 extremities. No rashes/lesion/induration/fluctuance or signs of infection noted. Skin: Skin warm and dry. Normal skin color. Normal skin turgor. No rashes/lesions/lacerations noted. Extremities: +3 pitting Lower extremity. No calf tenderness is noted. Extremities exhibit normal range of motion and nontender. Neuro: Oriented X 3. No motor deficit. No sensory deficit. Reflexes normal. Normal steady gait. No focal neuro deficits noted. CN's II-XII intact bilaterally? Vascular: + radial pulses/+ 2 distal pedal pulses/+2 dorsalis pedis b/l. Normal cap refill. No cyanosis noted to upper extremity nails and lower extremity toes nails. Course Course Course Narrative: 20:15pm - 81-year-old female with a past medical history of CAD c Cardiac stent, HTN, hypercholesterolemia, hx of diverticulosis/diverticulitis, Hx of gastritis, incontinence of feces and pancreatic mass who is being followed by Gastroenterology by Quentin Ashraf PA-C to r/o pancreatic malignanc presenting to the ED with family at bedside with complaints of left lower quadrant abdominal pain with associated constipation and increased urinary frequency since Thursday worse today. Reports that on Thursday she tried to have a bowel movement and she had loose stools although they were not diarrhea. They are a normal brown color. Although not her normal stools. She reports despite having this loose stool she is still having left lower quadrant abdominal pain radiating to her suprapubic/right lower quadrant. She reports today she had 1 episode of vomiting. She reports while she was in the waiting room she started to have chest pain she reports as ?a tinge in the middle of my chest it barely hurts?. She denies radiation of this chest pain. She reports she is currently on prednisone that she was started on for a biopsy to rule out temporal arteritis and she was negative. Although they explained to her that she should continue the steroids as she had already started them. She reports that this may be the reason why her legs are swollen. I asked her if she was short of breath due to she appeared short of breath and patient denies any shortness of breath. She also reports she had a colonoscopy in 2017. Patient had labs a she was in the waiting room and she has baseline anemia which is lower when compared to prior her H&H today is 9.8/31.8. BUN and creatinine and increased at 27/1.49 this is new for the patient. Random glucose 128. Troponin 35.0 3 hours later 52.3 therefore doubled. Total protein 6.2. Otherwise all other labs are within normal limits. Plan: At this time will add BNP, PT INR, COVID swab and stool occult along with IV Zofran and morphine for the patient's pain. Pending CT scan abdomen pelvis will re-evaluate. Reevaluation(s) Reevaluation #1: - CT scan abdomen pelvis without IV contrast which was ordered while the patient was in the waiting room due to no IV line placed at that time revealed mild to moderate diverticulitis of the sigmoid colon. No abscess or obstruction. Cardiomegaly. Small pericardial effusion. Stable pancreatic cystic lesion. Stable hepatic cyst. Otherwise no other acute processes. - patient is also positive for stool occult. - patient negative for COVID. - therefore at this time will obtain blood cultures and lactic acid. Start IV Rocephin/fluids. And plan to admit for diverticulitis with associated anemia/positive stool occult with TOMA and elevated troponin most likely related to demand. Patient and family at bedside understand agree this plan. Time: 21:19 Reevaluation #2: - patient became hypoxic in the 80s therefore we placed her on 2 L of nasal cannula oxygen and is now satting at 98% on 2 L of nasal cannula oxygen. She denies any shortness of breath. Although she did have a large bowel movement and from the patient being positive for stool occult will recheck a CBC. I also discussed this case with Dr. Kennedy the plow shaker he reports that the troponin is most likely related to her demand from her anemia/diverticulitis and her TOMA. Her EKG is similar compared to prior. She has had this left bundle branch block. Will also obtain a type and screen. And plan to admit. - I discussed this case with Dr. Pierce. He recommending adding Flagyl and a PPI. - patient family at bedside understand agree this plan. Time: 21:51 MDM - Abdominal Pain Medical Records Attestation: I reviewed the patient's medical records. Lab Data Attestation: I reviewed the patient's lab results. Result diagrams: 04/21/22 21:55 04/21/22 14:42 Labs: Lab Results 04/21/22 04/21/22 04/21/22 Range/Units 14:42 14:42 14:42 WBC 9.7 (4.8-10.8) X10*3/uL RBC 3.33 L (4.20-5.50) X10*6/uL Hgb 9.8 L (12.0-16.0) g/dl Hct 31.8 L (37.0-47.0) % MCV 95.5 (80.0-98.0) fL MCH 29.4 (27.0-33.0) pg MCHC 30.8 L (31.0-35.0) g/dl RDW 16.0 (11.0-16.0) % Plt Count 249 (160-400) X10*3/uL MPV 9.6 (9.4-12.3) fL Immature Gran % (Auto) (0.0-0.4) % Neut % (Auto) (45-73) % Lymph % (Auto) (20-40) % [place] % (Auto) (2-11) % Eos % (Auto) (0-4) % Baso % (Auto) (0-2) % Lymph # (Auto) (1.2-4.9) X10*3/uL [place] # (Auto) (0.1-1.2) X10*3/uL Eos # (Auto) (0.0-0.4) X10*3/uL Baso # (Auto) (0.0-0.2) X10*3/uL Abs Immat Gran (auto) (0.00-0.03) X10*3/uL Absolute Neuts (auto) (2.0-8.3) x10*3/uL Absolute Nucleated RBC 0.000 (0.0-0.012) X10*3/uL Nucleated RBC % (auto) 0.0 (0.0-0.2) /100WBC Smear Tech's Comments PT (10.0-13.1) SEC INR (0.9-1.1) Sodium 143 (135-145) mmol/L Potassium 4.4 (3.3-5.1) mmol/L Chloride 104 (96-108) mmol/L Carbon Dioxide 25 (22-29) mmol/L Anion Gap 18 (12-20) BUN 27 H (9-16) mg/dL Creatinine 1.49 H (0.5-1.4) mg/dL Estim Creat Clear Calc 26.4 Estimated GFR 34 Random Glucose 128 H (60-115) mg/dL Lactic Acid (0.5-2.0) mmol/L Calcium 9.5 (8.4-10.2) mg/dL Total Bilirubin 0.7 (0.0-1.0) mg/dL Direct Bilirubin 0.4 (0.0-0.5) mg/dL AST 15 (5-31) U/L ALT 18 (0-31) U/L Alkaline Phosphatase 105 D (39-117) U/L Total Creatine Kinase 43 (26-140) U/L Troponin I High Sens 35.0 H (<3.5-17.0) ng/L B-Natriuretic Peptide (<100) pg/mL Total Protein 6.2 L (6.5-8.0) g/dL Albumin 3.7 (3.5-5.0) g/dL Lipase 11 (8-78) U/L Stool Occult Blood (NEGATIVE) COVID-19 (THO) (Negative) COVID-19 Clin Com 04/21/22 04/21/22 04/21/22 Range/Units 16:48 20:46 20:46 WBC (4.8-10.8) X10*3/uL RBC (4.20-5.50) X10*6/uL Hgb (12.0-16.0) g/dl Hct (37.0-47.0) % MCV (80.0-98.0) fL MCH (27.0-33.0) pg MCHC (31.0-35.0) g/dl RDW (11.0-16.0) % Plt Count (160-400) X10*3/uL MPV (9.4-12.3) fL Immature Gran % (Auto) (0.0-0.4) % Neut % (Auto) (45-73) % Lymph % (Auto) (20-40) % [place] % (Auto) (2-11) % Eos % (Auto) (0-4) % Baso % (Auto) (0-2) % Lymph # (Auto) (1.2-4.9) X10*3/uL [place] # (Auto) (0.1-1.2) X10*3/uL Eos # (Auto) (0.0-0.4) X10*3/uL Baso # (Auto) (0.0-0.2) X10*3/uL Abs Immat Gran (auto) (0.00-0.03) X10*3/uL Absolute Neuts (auto) (2.0-8.3) x10*3/uL Absolute Nucleated RBC (0.0-0.012) X10*3/uL Nucleated RBC % (auto) (0.0-0.2) /100WBC Smear Tech's Comments PT (10.0-13.1) SEC INR (0.9-1.1) Sodium (135-145) mmol/L Potassium (3.3-5.1) mmol/L Chloride (96-108) mmol/L Carbon Dioxide (22-29) mmol/L Anion Gap (12-20) BUN (9-16) mg/dL Creatinine (0.5-1.4) mg/dL Estim Creat Clear Calc Estimated GFR Random Glucose (60-115) mg/dL Lactic Acid (0.5-2.0) mmol/L Calcium (8.4-10.2) mg/dL Total Bilirubin (0.0-1.0) mg/dL Direct Bilirubin (0.0-0.5) mg/dL AST (5-31) U/L ALT (0-31) U/L Alkaline Phosphatase (39-117) U/L Total Creatine Kinase (26-140) U/L Troponin I High Sens 52.3 H* (<3.5-17.0) ng/L B-Natriuretic Peptide 429 H (<100) pg/mL Total Protein (6.5-8.0) g/dL Albumin (3.5-5.0) g/dL Lipase (8-78) U/L Stool Occult Blood (NEGATIVE) COVID-19 (THO) Negative (Negative) COVID-19 Clin Com See Note 04/21/22 04/21/22 04/21/22 Range/Units 20:46 21:54 21:54 WBC (4.8-10.8) X10*3/uL RBC (4.20-5.50) X10*6/uL Hgb (12.0-16.0) g/dl Hct (37.0-47.0) % MCV (80.0-98.0) fL MCH (27.0-33.0) pg MCHC (31.0-35.0) g/dl RDW (11.0-16.0) % Plt Count (160-400) X10*3/uL MPV (9.4-12.3) fL Immature Gran % (Auto) (0.0-0.4) % Neut % (Auto) (45-73) % Lymph % (Auto) (20-40) % [place] % (Auto) (2-11) % Eos % (Auto) (0-4) % Baso % (Auto) (0-2) % Lymph # (Auto) (1.2-4.9) X10*3/uL [place] # (Auto) (0.1-1.2) X10*3/uL Eos # (Auto) (0.0-0.4) X10*3/uL Baso # (Auto) (0.0-0.2) X10*3/uL Abs Immat Gran (auto) (0.00-0.03) X10*3/uL Absolute Neuts (auto) (2.0-8.3) x10*3/uL Absolute Nucleated RBC (0.0-0.012) X10*3/uL Nucleated RBC % (auto) (0.0-0.2) /100WBC Smear Tech's Comments PT 12.8 (10.0-13.1) SEC INR 1.1 (0.9-1.1) Sodium (135-145) mmol/L Potassium (3.3-5.1) mmol/L Chloride (96-108) mmol/L Carbon Dioxide (22-29) mmol/L Anion Gap (12-20) BUN (9-16) mg/dL Creatinine (0.5-1.4) mg/dL Estim Creat Clear Calc Estimated GFR Random Glucose (60-115) mg/dL Lactic Acid 1.5 (0.5-2.0) mmol/L Calcium (8.4-10.2) mg/dL Total Bilirubin (0.0-1.0) mg/dL Direct Bilirubin (0.0-0.5) mg/dL AST (5-31) U/L ALT (0-31) U/L Alkaline Phosphatase (39-117) U/L Total Creatine Kinase (26-140) U/L Troponin I High Sens (<3.5-17.0) ng/L B-Natriuretic Peptide (<100) pg/mL Total Protein (6.5-8.0) g/dL Albumin (3.5-5.0) g/dL Lipase (8-78) U/L Stool Occult Blood POSITIVE (NEGATIVE) COVID-19 (THO) (Negative) COVID-19 Clin Com 04/21/22 04/21/22 Range/Units 21:54 21:55 WBC 25.0 H (4.8-10.8) X10*3/uL RBC 3.11 L (4.20-5.50) X10*6/uL Hgb 9.5 L (12.0-16.0) g/dl Hct 29.9 L (37.0-47.0) % MCV 96.1 (80.0-98.0) fL MCH 30.5 (27.0-33.0) pg MCHC 31.8 (31.0-35.0) g/dl RDW 16.2 H (11.0-16.0) % Plt Count 272 (160-400) X10*3/uL MPV 10.8 (9.4-12.3) fL Immature Gran % (Auto) 1.1 H (0.0-0.4) % Neut % (Auto) 93.6 H (45-73) % Lymph % (Auto) 1.4 L (20-40) % [place] % (Auto) 3.4 (2-11) % Eos % (Auto) 0.3 (0-4) % Baso % (Auto) 0.2 (0-2) % Lymph # (Auto) 0.4 L (1.2-4.9) X10*3/uL [place] # (Auto) 0.9 (0.1-1.2) X10*3/uL Eos # (Auto) 0.1 (0.0-0.4) X10*3/uL Baso # (Auto) 0.1 (0.0-0.2) X10*3/uL Abs Immat Gran (auto) 0.27 H (0.00-0.03) X10*3/uL Absolute Neuts (auto) 23.4 H (2.0-8.3) x10*3/uL Absolute Nucleated RBC 0.000 (0.0-0.012) X10*3/uL Nucleated RBC % (auto) 0.0 (0.0-0.2) /100WBC Smear Tech's Comments VERIFIED PT (10.0-13.1) SEC INR (0.9-1.1) Sodium (135-145) mmol/L Potassium (3.3-5.1) mmol/L Chloride (96-108) mmol/L Carbon Dioxide (22-29) mmol/L Anion Gap (12-20) BUN (9-16) mg/dL Creatinine (0.5-1.4) mg/dL Estim Creat Clear Calc Estimated GFR Random Glucose (60-115) mg/dL Lactic Acid (0.5-2.0) mmol/L Calcium (8.4-10.2) mg/dL Total Bilirubin (0.0-1.0) mg/dL Direct Bilirubin (0.0-0.5) mg/dL AST (5-31) U/L ALT (0-31) U/L Alkaline Phosphatase (39-117) U/L Total Creatine Kinase (26-140) U/L Troponin I High Sens 76.1 H* (<3.5-17.0) ng/L B-Natriuretic Peptide (<100) pg/mL Total Protein (6.5-8.0) g/dL Albumin (3.5-5.0) g/dL Lipase (8-78) U/L Stool Occult Blood (NEGATIVE) COVID-19 (THO) (Negative) COVID-19 Clin Com Imaging Data CT scan abdomen pelvis without IV contrast: Attestation: I personally reviewed and interpreted this imaging study as follows: Radiologist's impression: FINDINGS: LUNG BASES: Heart size is enlarged. Trace pericardial effusion There are scattered calcifications of the coronary arteries. Mitral valve annulus calcification.? LIVER, GALLBLADDER, AND BILIARY TREE: The liver is normal in size, shape, and attenuation. No focal hepatic lesion or biliary ductal dilatation is present. The gallbladder is unremarkable with no evidence of radiopaque gallstones, gallbladder wall thickening, or obvious pericholecystic inflammatory changes.? PANCREAS: Redemonstration of the large cystic lesion at the head and uncinate process of the pancreas measuring 3.8 cm transverse. Density measurement 9 Hounsfield units. This is unchanged since MR study of 01/01/2022. Smaller cyst at the body of the pancreas not well seen. No inflammation around the pancreas. No pancreatic duct dilatation.? SPLEEN: Unremarkable.? ADRENAL GLANDS: Unremarkable.? KIDNEYS AND URETERS: The kidneys are normal in size, shape, and attenuation. No hydronephrosis, hydroureter, or calculi seen. No perinephric stranding. 4.6 cm exophytic simple cyst left kidney midpole. This is unchanged since MR study 01/01/2022. No follow-up imaging is recommended for simple renal cyst. BLADDER: Unremarkable.? GASTROINTESTINAL TRACT: There are is bowel wall thickening and pericolonic edema involving the mid to distal sigmoid colon. There are scattered diverticula throughout the colon. Findings consistent with a diverticulitis. No perforation or abscess. No bowel obstruction. Small volume of scattered stool in the colon. The appendix is normal. The small bowel loops are unremarkable.? ABDOMINAL WALL: No significant hernia is appreciated.? LYMPH NODES: Normal. VASCULAR: Extensive vascular calcifications in the abdomen and the pelvis. There is no aneurysm. PELVIC VISCERA: Unremarkable.? OSSEOUS STRUCTURES: Unremarkable.? CT/CT abdomen pelvis wo IV con IMPRESSION: ? 1. Mild to moderate diverticulitis of the sigmoid colon. No abscess or obstruction. 2. Cardiomegaly. Small pericardial effusion. 3. Stable pancreatic cystic lesion. 4. Stable hepatic cysts. No follow-up imaging is recommended for simple renal cyst.? ? Fleischner guidelines were followed. ECG Data Attestation: I personally reviewed and interpreted this ECG as follows: ECG interpretation date: 04/21/22 ECG interpretation time: 21:17 Interpretation: Normal sinus rhythm with ventricular rate of 81 with a left bundle-branch block nonspecific ST abnormalities no acute ischemic change are noted. Similar compared to prior EKG 07/12/2020 she had a left bundle branch block at that time as well. Critical Care Time Critical Care Time Critical Care Time: Yes Total Critical Care Time: 60 Attestation: I personally attest to this time spent taking care of the patient Discharge Plan Discharge Clinical Impression: Diverticulitis, Chest pain, Elevated troponin, TOMA (acute kidney injury), Anemia, Fecal occult blood test positive Patient Disposition: Admitted As Inpatient
[2022-04-21] MEDS: 0.9 % Sodium Chloride 1,000 ML 999 ML IVCONT (20:52)
[2022-04-21 21:07] LABS: OBS Int Ctl Valid YES; OBS1 POSITIVE (NEGATIVE)
[2022-04-21] MEDS: ondansetron HCL 4 MG/2 ML VIAL IVPUSH (21:07)
[2022-04-21] MEDS: Morphine Sulfate 2 MG/ML CARTRIDGE IVPUSH (21:08)
[2022-04-21 21:10] LABS: COVID-19 Test Negative (Negative); IDNOW Serial# 16C4AD1C
[2022-04-21 21:19] LABS: B Type Natriuretic Peptide 429 pg/mL (<100)
[2022-04-21 22:11] LABS: Basophils Absolute Auto 0.1 X10*3/uL (0.0-0.2); Basophils Percent Auto 0.2 % (0-2); Eosinophils Absolute Auto 0.1 X10*3/uL (0.0-0.4); Eosinophils Percent Auto 0.3 % (0-4); Hematocrit 29.9 % (37.0-47.0); Hemoglobin 9.5 g/dl (12.0-16.0); Imm Gran Abs Auto 0.27 X10*3/uL (0.00-0.03); Imm Gran Pct Auto 1.1 % (0.0-0.4); Lymphocytes Absolute Auto 0.4 X10*3/uL (1.2-4.9); Lymphocytes Percent Auto 1.4 % (20-40); MANUAL DIFF FLAG SCAN; Mean Corpuscular HGB Conc 31.8 g/dl (31.0-35.0); Mean Corpuscular Hemoglobin 30.5 pg (27.0-33.0); Mean Corpuscular Volume 96.1 fL (80.0-98.0); Mean Platelet Volume 10.8 fL (9.4-12.3); Monocytes Absolute Auto 0.9 X10*3/uL (0.1-1.2); Monocytes Percent Auto 3.4 % (2-11); Neutrophils Absolute Auto 23.4 x10*3/uL (2.0-8.3); Neutrophils Percent Auto 93.6 % (45-73); Platelet Count 272 X10*3/uL (160-400); Red Blood Count 3.11 X10*6/uL (4.20-5.50); Red Cell Distribution Width 16.2 % (11.0-16.0); SCAN SMEAR FLAG 1
[2022-04-21 22:15] LABS: Lactic Acid 1.5 mmol/L (0.5-2.0)
[2022-04-21] MEDS: Pantoprazole Sodium 40 MG/10 ML VIAL IVPUSH (22:17)
[2022-04-21] MEDS: metroNIDAZOLE/NS 500 MG/100 ML PIGGYBACK 100 MG IV (22:17)
[2022-04-21 22:26] LABS: INTERNATIONAL NORM RATIO 1.1 (0.9-1.1); Prothrombin Time 12.8 SEC (10.0-13.1)
[2022-04-21 22:29] LABS: Troponin-I High Sensitivity 76.1 ng/L (<3.5-17.0)
--- NOTE | 2022-04-21 22:36 | PC.NURSE ---
REPORTED TO RN MYLA AND PROVIDER TY
--- NOTE | 2022-04-21 22:38 | PHA.MEDREC ---
Pharmacy Consult ? Medication Reconciliation Pharmacy has completed the medication reconciliation. SPOKE WITH PT
[2022-04-21] MEDS: cefTRIAXone sodium 1 GM in 0.9 % Sodium Chloride 50 ML IV (22:49)
[2022-04-21 22:54] LABS: SLIDE REVIEW VERIFIED
--- NOTE | 2022-04-21 23:41 | P.HPHOSP_ITS ---
History of Present Illness Date of Service: 04/21/22 Chief Complaint: Abd pain 81-year-old female with a past medical history of hypertension, hyperlipidemia, Pre DM, CAD status post stent, pancreatic cystic lesion -recent EUS, left bundle-branch block presented to the hospital today with a chief complaint of abdominal pain. Patient reports that since last Thursday she has been having episodes of abdominal pain located in the lower abdomen, crampy in nature, 10/10 intensity, has been having nausea and vomiting also had soft stools. Denies any numbness or tingling. Mentioned that yesterday she had couple of episodes of chest discomfort- currently resolved. Denies any palpitations, shortness of breath. Denies any urinary symptoms. 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 patient denied any black stool or bright red blood in the stool. Review of all other systems is negative except mentioned above ER course: Per ER team patient EKG was nonischemic but noted to have elevated troponins; cardiology was notified - recommended no acute intervention; CT scan showed diverticulitis given antibiotics. ER team reported that patient had brown stool with guaiac positive. Hemoglobin stable. Admitted for further management [facility] Medical History Abdominal pain Atypical ductal hyperplasia of left breast Constipation Coronary artery disease Diverticulosis of colon History of anesthesia problem History of diverticulitis Hx of gastritis Hypercholesterolemia Hypertension Incontinence of feces Left bundle branch block (LBBB) Pancreatic mass Family History Mother Gastric cancer Surgical History History of esophagogastroduodenoscopy (EGD) History of eye surgery History of heart artery stent History of left breast biopsy History of parotid gland removal Hx of bilateral cataract extraction Hx of colonoscopy Hx of dilation and curettage Social History Household Members: None Housing: Apartment Are you a primary intensive care ambulance paramedic to a significant other at home: No Do you presently have visiting nurse or other home services: No Alcohol intake: never Patient Tobacco Use Status: Former Tobacco user Quit Date: 2010 Tobacco use type: Cigarette Advance Directives Date on File: 04/30/20 service: No Current occupational status: retired Meds Allergies Allergy/AdvReac Type Severity Reaction Status Date / Time doxycycline AdvReac Anaphylaxis Verified 04/23/22 19:03 Active Medications: Current Medications Acetaminophen (Acetaminophen 325 Mg Tablet) 650 mg PO Q6H PRN PRN Reason: Pain, Mild (Pain Scale 1-3) Ceftriaxone Sodium 1 gm/ (Sodium Chloride) 50 mls @ 100 mls/hr IV Q24H [facility] Metronidazole (Flagyl) 500 mg in 100 mls @ 100 mls/hr IV Q8H [facility] Melatonin (Melatonin 3 Mg Tablet) 6 mg PO BEDTIME PRN PRN Reason: Insomnia Pantoprazole Sodium (Pantoprazole Sodium 40 Mg/10 Ml Vial) 40 mg IVPUSH DAILY@0630 [facility] Pharmacy Consult (Consult Rx Perform Med Rec) 1 each MISCELLANE ONCE PRN PRN Reason: Consult order Senna (Sennosides 8.6 Mg Tablet) 17.2 mg PO BEDTIME PRN PRN Reason: Constipation Sodium Chloride (0.9 % Sodium Chloride Flush 3 Ml Syringe) 3 ml IVFLUSH QSHIFT [facility] Home Medications Medication Instructions Recorded Confirmed Last Taken Type amlodipine 10 mg tablet 10 mg PO BEDTIME 06/12/20 04/21/22 04/21/22 History aspirin 81 mg tablet,delayed 81 mg PO DAILY 06/12/20 04/21/22 04/21/22 History release (Adult Low Dose Aspirin) levothyroxine 112 mcg tablet 112 mcg PO DAILY 06/12/20 04/21/22 04/21/22 History rosuvastatin 40 mg tablet 40 mg PO DAILY 06/12/20 04/21/22 04/21/22 History hydralazine 25 mg tablet 25 mg PO BID 03/06/22 04/21/22 04/21/22 History cholecalciferol (vitamin D3) 25 25 mcg PO DAILY 03/10/22 04/21/22 04/21/22 History mcg (1,000 unit) capsule (Vitamin D3) losartan 100 mg tablet 1 tab PO DAILY 04/21/22 04/21/22 04/21/22 History omeprazole 20 mg capsule,delayed 1 cap PO DAILY 04/21/22 04/21/22 04/21/22 History release polyethylene glycol 3350 17 gram 17 g PO BEDTIME 04/21/22 04/21/22 04/21/22 History oral powder packet (Miralax) prednisone 5 mg tablet See Rx Instructions .Route .COMPLEX 04/21/22 04/21/22 04/21/22 History Physical Exam Vital Signs and Narrative: Vital Signs: Last Vital Signs Temp 98.9 F 04/21/22 20:08 Pulse 87 04/21/22 20:08 Resp 20 04/21/22 20:08 BP 142/45 H 04/21/22 20:08 Pulse Ox 96 04/21/22 20:08 O2 Del Method 04/21/22 20:08 BMI result Body Mass Index 31.4 Gen: Appears be in no acute distress HEENT: NCAT, Moist mucosa. Pulmonary: coarse breath sounds CVS: Normal S1-S2 Abdomen: BS+, Soft, mildly tender diffusely Extremities: Warm well perfused Neuro: Alert and awake. Results Labs CBC and Chem 7: 04/27/22 06:33 04/27/22 06:33 Labs: Laboratory Results - last 24 hr 04/21/22 04/21/22 04/21/22 14:42 14:42 20:46 MCV 95.5 MCH 29.4 MCHC 30.8 L RDW 16.0 Plt Count 249 MPV 9.6 Immature Gran % (Auto) Neut % (Auto) Lymph % (Auto) Mora % (Auto) Eos % (Auto) Baso % (Auto) Lymph # (Auto) Mora # (Auto) Eos # (Auto) Baso # (Auto) Abs Immat Gran (auto) Absolute Neuts (auto) Absolute Nucleated RBC 0.000 Nucleated RBC % (auto) 0.0 Smear Tech's Comments PT INR Anion Gap 18 Estim Creat Clear Calc 26.4 Estimated GFR 34 Random Glucose 128 H Lactic Acid Calcium 9.5 Total Bilirubin 0.7 Direct Bilirubin 0.4 AST 15 ALT 18 Alkaline Phosphatase 105 D Total Creatine Kinase 43 B-Natriuretic Peptide 429 H Total Protein 6.2 L Albumin 3.7 Lipase 11 Stool Occult Blood COVID-19 (THO) COVID-19 Clin Com Blood Type Antibody Screen 04/21/22 04/21/22 04/21/22 20:46 20:46 21:54 MCV MCH MCHC RDW Plt Count MPV Immature Gran % (Auto) Neut % (Auto) Lymph % (Auto) Mora % (Auto) Eos % (Auto) Baso % (Auto) Lymph # (Auto) Mora # (Auto) Eos # (Auto) Baso # (Auto) Abs Immat Gran (auto) Absolute Neuts (auto) Absolute Nucleated RBC Nucleated RBC % (auto) Smear Tech's Comments PT 12.8 INR 1.1 Anion Gap Estim Creat Clear Calc Estimated GFR Random Glucose Lactic Acid Calcium Total Bilirubin Direct Bilirubin AST ALT Alkaline Phosphatase Total Creatine Kinase B-Natriuretic Peptide Total Protein Albumin Lipase Stool Occult Blood POSITIVE COVID-19 (THO) Negative COVID-19 Clin Com See Note Blood Type Antibody Screen 04/21/22 04/21/22 04/21/22 21:54 21:54 21:55 MCV 96.1 MCH 30.5 MCHC 31.8 RDW 16.2 H Plt Count 272 MPV 10.8 Immature Gran % (Auto) 1.1 H Neut % (Auto) 93.6 H Lymph % (Auto) 1.4 L Mora % (Auto) 3.4 Eos % (Auto) 0.3 Baso % (Auto) 0.2 Lymph # (Auto) 0.4 L Mora # (Auto) 0.9 Eos # (Auto) 0.1 Baso # (Auto) 0.1 Abs Immat Gran (auto) 0.27 H Absolute Neuts (auto) 23.4 H Absolute Nucleated RBC 0.000 Nucleated RBC % (auto) 0.0 Smear Tech's Comments VERIFIED PT INR Anion Gap Estim Creat Clear Calc Estimated GFR Random Glucose Lactic Acid 1.5 Calcium Total Bilirubin Direct Bilirubin AST ALT Alkaline Phosphatase Total Creatine Kinase B-Natriuretic Peptide Total Protein Albumin Lipase Stool Occult Blood COVID-19 (THO) COVID-19 Clin Com Blood Type A Positive Antibody Screen NEGATIVE Imaging Radiologist's Impressions: Impressions Abdomen/Pelvis CT 04/21/22 19:15 IMPRESSION: 1. Mild to moderate diverticulitis of the sigmoid colon. No abscess or obstruction. 2. Cardiomegaly. Small pericardial effusion. 3. Stable pancreatic cystic lesion. 4. Stable hepatic cysts. No follow-up imaging is recommended for simple renal cyst. Fleischner guidelines were followed. Chest X-Ray 04/21/22 20:35 IMPRESSION: Cardiomegaly with increased coarse interstitial thickening. Cannot exclude interstitial edema. No focal infiltrate Assessment and Plan (1) Diverticulitis: Status: Acute Plan 81-year-old female with a past medical history of hypertension, hyperlipidemia, Pre DM, CAD status post stent, pancreatic cystic lesion -recent EUS, left bundle-branch block presented to the hospital today with a chief complaint of abdominal pain. Noted to have leukocytosis, normal lactate, elevated creatinine, elevated troponins, CT abdomen showed diverticulitis. Admitted for further management. Diverticulitis: Continue IV ceftriaxone and Flagyl NPO Pain control lactate within normal limits Chest discomfort: Currently resolved. Patient noted to have elevated troponins. Cardiology was notified -Did not recommend heparin drip. Echocardiogram. will monitor on telemetry. Patient has prior history of CAD with stents. Patient was recently taken off Plavix. Currently on only aspirin. Will hold of aspirin as well given concerns for acute GI bleed. GI bleed: Patient noted to have guaiac-positive stool. H and H currently stable. Will consult Gastroenterology IV PPI TOMA: Likely prerenal in the setting of volume depletion/low intake. Patient given gentle IV fluids Shortness of breath: Patient noted to have mild bilateral wheezing. Mildly tachypneic. Placed on supplemental oxygen. DuoNebs p.r.n.. Will obtain repeat chest x-ray. Initial chest x-ray showed mild interstitial edema. Right eye blurry vision: Patient was recently evaluated as out patient and concerned for Gaint cell arteritis-on prednisone taper -will continue. Patient reports the biopsy came back negative. history of hypertension: Patient's blood pressure currently on the soft side. Hold home antihypertensives -amlodipine, losartan, hydralazine History of hyperlipidemia: Continue home statin History of hypothyroidism: Continue home levothyroxine DVT prophylaxis: SCD boots Code status: Full code Quality Stroke Does the patient have a stroke diagnosis?: No VTE Prior VTE?: No VTE Risk Level:: Medical - moderate - high VTE Device Contraindication: N/A - Device Ordered VTE Drug Contraindication: Treatment Not Indicated
[2022-04-22] VITALS (10 sets, daily range): BP systolic 118–149; BP diastolic 39–73; PULSE 73–97; RESP 16–25; TEMP 37.1–37.7; O2SAT 91–98; BMI 32.2
[2022-04-22] MEDS: Morphine Sulfate 2 MG/ML CARTRIDGE 1 MG IVPUSH ×3 (05:43→22:21)
--- NOTE | 2022-04-22 07:00 | CA_ITS ---
Transthoracic Echocardiogram Patient (Last, First, Middle): Keturah Howard E Gender: Female Date of : 1940 Age: 81 Procedure Date: 04/22/2022 Procedure Type: Transthoracic Echocardiogram Location: ER Height: 152.4 cm Weight: 73.03 kg BSA: 1.70 m2 Heart Rate: 92 bpm BP: 132 / 43 mmHg Network Security Architect: GINA Referring MD: Shadi Pierce MD Symptoms: elevated troponins Study Quality: Fair ECG Rhythm: Sinus Conclusions: - Normal left ventricular size and systolic function. There is mildly increased left ventricular wall thickness. The visually estimated ejection fraction is between 60-65%. There is no evidence of regional wall motion - E/E prime ratio is >15, consistent with elevated filling pressures. - Normal right ventricular cavity size and systolic function. - There is mild aortic valve stenosis. Findings Left Ventricle Normal left ventricular size and systolic function. There is mildly increased left ventricular wall thickness. The visually estimated ejection fraction is between 60-65%. There is no evidence of regional wall motion abnormalities. Abnormal diastolic function is noted. Spectral Doppler is indicative of an impaired relaxation filling pattern. E/E prime ratio is >15, consistent with elevated filling pressures. Right Ventricle Normal right ventricular cavity size and systolic function. Atria The left atrium is normal in size. Aortic Valve There is a normal trileaflet aortic valve. There is mild calcification of the aortic valve. There is mild thickening of the aortic valve. There is mild aortic valve stenosis. The peak aortic velocity is 2.22 m/s. The aortic valve area is 1.85 cm2. There is no aortic valve regurgitation. Mitral Valve There is moderate mitral annular calcification. There is no mitral valve regurgitation. There is no mitral valve stenosis. Pulmonic Valve Normal pulmonic valve structure and function. There is trace pulmonic valve regurgitation. Tricuspid Valve Normal tricuspid valve structure and function. There is mild tricuspid valve regurgitation. Normal right atrial pressure. There is no evidence of pulmonary hypertension. Great Vessels All visible segments of the aorta are normal in size. The visualized portions of the pulmonary artery and branches are normal. Venous The inferior vena cava is normal in size and collapses greater than 50% with inspiration. Pericardium/Pleural There is no evidence of pericardial effusion. Prior Study Comparison No prior study available for comparison. Measurements 2D Linear Measurements IVSd: 1.48 0.6-0.9/0.6-1.0 cm LVIDd: 3.73 3.9-5.3/4.2-5.9 cm LVIDd Index: 2.19 2.4-3.2/2.2-3.1 cm/m2 LVIDs: 2.32 2.0-3.6 cm LVPWd: 1.06 0.7-1.1 cm LA Diam: 3.40 2.7-3.8/3.0-4.0 cm LAIDs Index: 2.00 1.5-2.3 cm/m2 LV Mass: 202.38 67-162/88-224 g LV Mass Index: 119.05 43-95/49-115 g/m2 LVOT Diam: 1.70 3.0+(-)1.3 cm 2D Systolic Function EF 4C: 44.30 >55% EF 2C: 54.30 >55% Mitral Valve MV Pk E: 1.50 MV PK A: 2.02 MV Decel Time: 257.00 E/A: 0.70 E'Lateral: 7.62 E'Medial: 5.22 E/E' Med: 28.70 E/E' Lat: 19.70 PHT: 75.00 MVA PHT: 2.93 Decel Whitfield: 5.82 Aortic Valve AoV Pk [place]: 2.22 AoV Mn [place]: 1.66 AoV VTI: 0.46 AoV Pk Grad: 20.00 Aov Mn Grad: 12.00 YANETH Cont.VTI: 1.85 LVOT LVOT Pk [place]: 1.72 LVOT Mn [place]: 1.28 LVOT VTI: 0.38 LVOT Pk Grad: 12.00 LVOT Mn Grad: 7.00 LVOT Diam: 1.70 LVOT Area: 2.27 Diastolic Function MV Pk E: 1.50 MV Pk A: 2.02 E/A: 0.70 E'Medial: 5.22 E/E' Med: 28.70 E' Laterial: 7.62 E/E' Lat: 19.70 Right Ventricle TAPSE (mm): 17.40 TVS' Le[place]: 14.00 Tricuspid Valve TR Pk [place]: 2.93 TR Pk Grad: 34.00 RA Press: 3.00 RVSP: 37.00 Great Vessels Aorta Sinus of Valsalva: 2.80 2.0-3.5 cm Ao Asc: 3.20 2.1-3.4 cm Pulmonary Valve PV Pk [place]: 1.36 Peak PV Grad: 7.00 Updated in Other Vendor System with Status of Final Eduard Kennedy MD electronically signed on 04/22/2022 6:19:48 PM with status of Final
[2022-04-22 07:27] LABS: Basophils Percent Auto 0.2 % (0-2); Hematocrit 29.8 % (37.0-47.0); Hemoglobin 9.2 g/dl (12.0-16.0); Imm Gran Abs Auto 0.08 X10*3/uL (0.00-0.03); Imm Gran Pct Auto 0.5 % (0.0-0.4); Lymphocytes Absolute Auto 0.9 X10*3/uL (1.2-4.9); Lymphocytes Percent Auto 5.8 % (20-40); MANUAL DIFF FLAG SCAN; Mean Corpuscular HGB Conc 30.9 g/dl (31.0-35.0); Mean Corpuscular Hemoglobin 29.6 pg (27.0-33.0); Mean Corpuscular Volume 95.8 fL (80.0-98.0); Mean Platelet Volume 10.5 fL (9.4-12.3); Monocytes Absolute Auto 0.5 X10*3/uL (0.1-1.2); Monocytes Percent Auto 3.1 % (2-11); Neutrophils Absolute Auto 14.1 x10*3/uL (2.0-8.3); Neutrophils Percent Auto 90.4 % (45-73); Platelet Count 224 X10*3/uL (160-400); Red Blood Count 3.11 X10*6/uL (4.20-5.50); Red Cell Distribution Width 16.2 % (11.0-16.0); SCAN SMEAR FLAG 1; White Blood Count 15.6 X10*3/uL (4.8-10.8)
[2022-04-22 07:46] LABS: Anion Gap 17 (12-20); Blood Urea Nitrogen 29 mg/dL (9-16); Carbon Dioxide 22 mmol/L (22-29); Chloride 105 mmol/L (96-108); Creatinine Clr Calc Pharmacy 25.7; Estimated Glomerular Filt Rate 33; Glucose Random 114 mg/dL (60-115); Potassium 4.1 mmol/L (3.3-5.1); Sodium 140 mmol/L (135-145)
[2022-04-22 07:52] LABS: Calcium 8.4 mg/dL (8.4-10.2)
[2022-04-22 07:54] LABS: SLIDE REVIEW VERIFIED
[2022-04-22 07:57] LABS: B Type Natriuretic Peptide 305 pg/mL (<100)
[2022-04-22 08:49] LABS: C Reactive Protein 21.43 mg/dL (< or = 0.50)
--- NOTE | 2022-04-22 09:07 | P.CONCA_ITS ---
History of Present Illness History of Present Illness Date of Service: 04/22/22 Requesting physician: Ambika Price Chief complaint: Diverticulitis, CP, elevated trop Narrative: 81-year-old female who has background history of coronary artery disease with previous LAD PCI. She follows up with Dr. Vaughn at [facility]. She is presenting with abdominal pain and has been diagnosed with diverticulitis. She was complaining of shortness of breath for long time with minimal exertion. She is saying she climbs 3 steps in her house and gets out of breath. These symptoms have been ongoing. She is denying any significant orthopnea PND. While in the hospital she became more short of breath and chest x-ray was performed which is showing concern for pneumonitis but I am more worried about congestive heart failure. She also had right-sided focal chest discomfort lasting for a 2nd or 2 which she is describing as a twinge. She does not clearly remember her symptoms when she had LAD PCI. Troponin I levels were 52.3, 76.1 and 70.7. CRP is 21.43. BNP 305. PMFSH Past Medical History Medical History Abdominal pain Atypical ductal hyperplasia of left breast Constipation Coronary artery disease Diverticulosis of colon History of anesthesia problem History of diverticulitis Hx of gastritis Hypercholesterolemia Hypertension Incontinence of feces Left bundle branch block (LBBB) Pancreatic mass Family History Family History Mother Gastric cancer Surgical History Surgical History History of esophagogastroduodenoscopy (EGD) History of eye surgery History of heart artery stent History of left breast biopsy History of parotid gland removal Hx of bilateral cataract extraction Hx of colonoscopy Hx of dilation and curettage Social History Social History Household Members: None Housing: House Are you a primary rehab care assistant to a significant other at home: No Do you presently have visiting nurse or other home services: No Alcohol intake: never Patient Tobacco Use Status: Former Tobacco user Quit Date: 2010 Tobacco use type: Cigarette Advance Directives: No Advance Directives Date on File: 04/30/20 service: No Current occupational status: retired Meds Allergies Allergy/AdvReac Type Severity Reaction Status Date / Time No Known Allergies Allergy Verified 03/18/22 09:45 [No Known Allergies*] Active Medications: Current Medications Acetaminophen (Acetaminophen 325 Mg Tablet) 650 mg PO Q6H PRN PRN Reason: Pain, Mild (Pain Scale 1-3) Albuterol/Ipratropium (Albuterol/Iprat 2.5/0.5mg 3 Ml Ampul.Neb) 3 ml INHALE RQ4H PRN PRN Reason: Shortness of Breath/Wheezing Atorvastatin Calcium (Atorvastatin Calcium 80 Mg Tablet) 80 mg PO DAILY [facility] Ceftriaxone Sodium 1 gm/ (Sodium Chloride) 50 mls @ 100 mls/hr IV Q24H [facility] Metronidazole (Flagyl) 500 mg in 100 mls @ 100 mls/hr IV Q8H [facility] Sodium Chloride (Ns) 1,000 mls @ 100 mls/hr IVCONT .Q10H [facility] Stop: 04/22/22 18:44 Levothyroxine Sodium (Levothyroxine Sodium 112 Mcg Tablet) 112 mcg PO 0600 [facility] Melatonin (Melatonin 3 Mg Tablet) 6 mg PO BEDTIME PRN PRN Reason: Insomnia Morphine Sulfate (Morphine Sulfate 2 Mg/Ml Cartridge) 1 mg IVPUSH Q4H PRN; Protocol PRN Reason: Breakthrough Pain Last Admin: 04/22/22 05:43 Dose: 1 mg Pantoprazole Sodium (Pantoprazole Sodium 40 Mg/10 Ml Vial) 40 mg IVPUSH DAILY@0630 [facility] Pharmacy Consult (Consult Rx Perform Med Rec) 1 each MISCELLANE ONCE PRN PRN Reason: Consult order Polyethylene Glycol (Polyethylene Glycol 3350 17 Gm Powd.Pack) 17 gm PO BEDTIME [facility] Prednisone (Prednisone 5 Mg Tablet) 0 mg OG-TUBE .COMPLEX [facility] Senna (Sennosides 8.6 Mg Tablet) 17.2 mg PO BEDTIME PRN PRN Reason: Constipation Sodium Chloride (0.9 % Sodium Chloride Flush 3 Ml Syringe) 3 ml IVFLUSH QSHIFT [facility] Last Admin: 04/22/22 00:17 Dose: Not Given Vitamin D (Cholecalciferol (Vitamin D3) 25 Mcg Tablet) 25 mcg PO DAILY [facility] Home Medications Medication Instructions Recorded Confirmed Last Taken Type amlodipine 10 mg tablet 10 mg PO BEDTIME 06/12/20 04/21/22 04/21/22 History aspirin 81 mg tablet,delayed 81 mg PO DAILY 06/12/20 04/21/22 04/21/22 History release (Adult Low Dose Aspirin) levothyroxine 112 mcg tablet 112 mcg PO DAILY 06/12/20 04/21/22 04/21/22 History rosuvastatin 40 mg tablet 40 mg PO DAILY 06/12/20 04/21/22 04/21/22 History hydralazine 25 mg tablet 25 mg PO BID 03/06/22 04/21/22 04/21/22 History cholecalciferol (vitamin D3) 25 25 mcg PO DAILY 03/10/22 04/21/22 04/21/22 History mcg (1,000 unit) capsule (Vitamin D3) losartan 100 mg tablet 1 tab PO DAILY 04/21/22 04/21/22 04/21/22 History omeprazole 20 mg capsule,delayed 1 cap PO DAILY 04/21/22 04/21/22 04/21/22 History release polyethylene glycol 3350 17 gram 17 g PO BEDTIME 04/21/22 04/21/22 04/21/22 History oral powder packet (Miralax) prednisone 5 mg tablet See Rx Instructions .Route .COMPLEX 04/21/22 04/21/22 04/21/22 History Physical Exam Vital Signs: Vital Signs: Last Vital Signs Temp 98.7 F 04/22/22 06:29 Pulse 96 04/22/22 06:39 Resp 24 H 04/22/22 06:39 BP 149/48 H 04/22/22 06:29 Pulse Ox 97 04/22/22 06:29 O2 Del Method 04/22/22 06:29 O2 Flow Rate 6 04/22/22 06:29 BMI result Body Mass Index 31.4 GENERAL APPEARANCE: in no acute distress, pleasant. NECK: no carotid bruit, elevated jugular venous distention. SKIN: no suspicious lesions, warm and dry. HEART: no murmurs, regular rate and rhythm. LUNGS: Bibasilar crackles. ABDOMEN: soft, nontender. EXTREMITIES: no edema. PERIPHERAL PULSES: equal. NEUROLOGIC: No gross deficits, AAO X 3 Objective Labs and Meds Result diagrams: 04/22/22 07:06 04/22/22 07:06 Lab results: Laboratory Results - last 24 hr 09/26/22 09/26/22 09/26/22 14:42 14:42 14:42 WBC 9.7 RBC 3.33 L Hgb 9.8 L Hct 31.8 L MCV 95.5 MCH 29.4 MCHC 30.8 L RDW 16.0 Plt Count 249 MPV 9.6 Immature Gran % (Auto) Neut % (Auto) Lymph % (Auto) [place] % (Auto) Eos % (Auto) Baso % (Auto) Lymph # (Auto) [place] # (Auto) Eos # (Auto) Baso # (Auto) Abs Immat Gran (auto) Absolute Neuts (auto) Absolute Nucleated RBC 0.000 Nucleated RBC % (auto) 0.0 Smear Tech's Comments PT INR Sodium 143 Potassium 4.4 Chloride 104 Carbon Dioxide 25 Anion Gap 18 BUN 27 H Creatinine 1.49 H Estim Creat Clear Calc 26.4 Estimated GFR 34 Random Glucose 128 H Lactic Acid Calcium 9.5 Total Bilirubin 0.7 Direct Bilirubin 0.4 AST 15 ALT 18 Alkaline Phosphatase 105 D Total Creatine Kinase 43 Troponin I High Sens 35.0 H C-Reactive Protein B-Natriuretic Peptide Total Protein 6.2 L Albumin 3.7 Lipase 11 Stool Occult Blood COVID-19 (THO) COVID-[employer] Com Blood Type Antibody Screen 04/21/22 04/21/22 04/21/22 16:48 20:46 20:46 WBC RBC Hgb Hct MCV MCH MCHC RDW Plt Count MPV Immature Gran % (Auto) Neut % (Auto) Lymph % (Auto) [place] % (Auto) Eos % (Auto) Baso % (Auto) Lymph # (Auto) [place] # (Auto) Eos # (Auto) Baso # (Auto) Abs Immat Gran (auto) Absolute Neuts (auto) Absolute Nucleated RBC Nucleated RBC % (auto) Smear Tech's Comments PT INR Sodium Potassium Chloride Carbon Dioxide Anion Gap BUN Creatinine Estim Creat Clear Calc Estimated GFR Random Glucose Lactic Acid Calcium Total Bilirubin Direct Bilirubin AST ALT Alkaline Phosphatase Total Creatine Kinase Troponin I High Sens 52.3 H* C-Reactive Protein B-Natriuretic Peptide 429 H Total Protein Albumin Lipase Stool Occult Blood COVID-19 (THO) Negative COVID-19 NERITES Com See Note Blood Type Antibody Screen 04/21/22 04/21/22 04/21/22 20:46 21:54 21:54 WBC RBC Hgb Hct MCV MCH MCHC RDW Plt Count MPV Immature Gran % (Auto) Neut % (Auto) Lymph % (Auto) [place] % (Auto) Eos % (Auto) Baso % (Auto) Lymph # (Auto) [place] # (Auto) Eos # (Auto) Baso # (Auto) Abs Immat Gran (auto) Absolute Neuts (auto) Absolute Nucleated RBC Nucleated RBC % (auto) Smear Tech's Comments PT 12.8 INR 1.1 Sodium Potassium Chloride Carbon Dioxide Anion Gap BUN Creatinine Estim Creat Clear Calc Estimated GFR Random Glucose Lactic Acid 1.5 Calcium Total Bilirubin Direct Bilirubin AST ALT Alkaline Phosphatase Total Creatine Kinase Troponin I High Sens C-Reactive Protein B-Natriuretic Peptide Total Protein Albumin Lipase Stool Occult Blood POSITIVE COVID-19 (THO) [employer] Blood Type Antibody Screen 04/21/22 04/21/22 04/21/22 21:54 21:54 21:55 WBC 25.0 H RBC 3.11 L Hgb 9.5 L Hct 29.9 L MCV 96.1 MCH 30.5 MCHC 31.8 RDW 16.2 H Plt Count 272 MPV 10.8 Immature Gran % (Auto) 1.1 H Neut % (Auto) 93.6 H Lymph % (Auto) 1.4 L [place] % (Auto) 3.4 Eos % (Auto) 0.3 Baso % (Auto) 0.2 Lymph # (Auto) 0.4 L [place] # (Auto) 0.9 Eos # (Auto) 0.1 Baso # (Auto) 0.1 Abs Immat Gran (auto) 0.27 H Absolute Neuts (auto) 23.4 H Absolute Nucleated RBC 0.000 Nucleated RBC % (auto) 0.0 Smear Tech's Comments VERIFIED PT INR Sodium Potassium Chloride Carbon Dioxide Anion Gap BUN Creatinine Estim Creat Clear Calc Estimated GFR Random Glucose Lactic Acid Calcium Total Bilirubin Direct Bilirubin AST ALT Alkaline Phosphatase Total Creatine Kinase Troponin I High Sens 76.1 H* C-Reactive Protein B-Natriuretic Peptide Total Protein Albumin Lipase Stool Occult Blood COVID-19 (THO) [employer] Blood Type A Positive Antibody Screen NEGATIVE 04/22/22 04/22/22 04/22/22 07:06 07:06 07:06 WBC 15.6 H RBC 3.11 L Hgb 9.2 L Hct 29.8 L MCV 95.8 MCH 29.6 MCHC 30.9 L RDW 16.2 H Plt Count 224 MPV 10.5 Immature Gran % (Auto) 0.5 H Neut % (Auto) 90.4 H Lymph % (Auto) 5.8 L [place] % (Auto) 3.1 Eos % (Auto) 0.0 Baso % (Auto) 0.2 Lymph # (Auto) 0.9 L [place] # (Auto) 0.5 Eos # (Auto) 0.0 Baso # (Auto) 0.0 Abs Immat Gran (auto) 0.08 H Absolute Neuts (auto) 14.1 H Absolute Nucleated RBC 0.000 Nucleated RBC % (auto) 0.0 Smear Tech's Comments VERIFIED PT INR Sodium 140 Potassium 4.1 Chloride 105 Carbon Dioxide 22 Anion Gap 17 BUN 29 H Creatinine 1.53 H Estim Creat Clear Calc 25.7 Estimated GFR 33 Random Glucose 114 Lactic Acid Calcium 8.4 D Total Bilirubin Direct Bilirubin AST ALT Alkaline Phosphatase Total Creatine Kinase Troponin I High Sens C-Reactive Protein 21.43 H B-Natriuretic Peptide 305 H Total Protein Albumin Lipase Stool Occult Blood COVID-19 (THO) COVID-19 Clin Com Blood Type Antibody Screen Imaging Radiologist's impression: Impressions Abdomen/Pelvis CT 04/21/22 19:15 IMPRESSION: 1. Mild to moderate diverticulitis of the sigmoid colon. No abscess or obstruction. 2. Cardiomegaly. Small pericardial effusion. 3. Stable pancreatic cystic lesion. 4. Stable hepatic cysts. No follow-up imaging is recommended for simple renal cyst. Fleischner guidelines were followed. Chest X-Ray 04/21/22 20:35 IMPRESSION: Cardiomegaly with increased coarse interstitial thickening. Cannot exclude interstitial edema. No focal infiltrate Chest X-Ray 04/22/22 05:55 IMPRESSION: Developing diffuse bronchial wall thickening and streaky airspace opacities bilaterally more pronounced on the right suggestive of an atypical pneumonitis. Assessment and Plan (1) Diverticulitis: Status: Acute (2) Chest pain: Status: Acute (3) Elevated troponin: Status: Acute (4) Congestive heart failure: Status: Acute Plan Pleasant 81-year-old female who is presenting for abdominal pain and diverticulitis. She has known history of coronary disease with previous LAD PCI. She also complained of some atypical chest pain and has mildly abnormal high sensitivity troponin levels. She also has kidney injury and evidence of diverticulitis. I think the troponin leak is type 2 injury currently. She vicente uld continue the baby aspirin as before. She does not require heparin. She has been experiencing shortness of breath for long time with minimal exertion. She has become more short of breath the hospital. Her chest x-ray showing changes consistent with congestive heart failure. Her neck veins are not up to her jaw. I have advised the nurse to stop the IV fluids. Please give her 40 mg IV Lasix and will have to monitor closely. Hold the losartan currently because of kidney injury. We will review echocardiography. Thank you for allowing me to participate in the care of your patient. Please feel free to contact me if you have any questions. Procedures Date of Service Date of Service: 04/22/22
[2022-04-22 09:37] LABS: Troponin-I High Sensitivity 70.7 ng/L (<3.5-17.0)
[2022-04-22] MEDS: Cholecalciferol (Vitamin D3) 25 MCG TABLET PO (09:40)
[2022-04-22] MEDS: Levothyroxine Sodium 112 MCG TABLET PO (09:40)
[2022-04-22] MEDS: Pantoprazole Sodium 40 MG/10 ML VIAL IVPUSH (09:40)
[2022-04-22] MEDS: metroNIDAZOLE/NS 500 MG/100 ML PIGGYBACK 100 MG IV ×2 (09:40→22:22)
[2022-04-22 09:44] LABS: Appearance Urine Turbid; Color Urine Yellow; Glucose Urine UA Negative (Negative); Leukocyte Esterase Urine Small (1+) (Negative); Nitrite Urine Negative (Negative); PH 5.5 (5.0-9.0); UMIC TRIGGER UACC YES; Urine Blood Small (1+) (Negative); Urine Ketones Negative (Negative); Urine Protein 300 (3+) mg/dL (Neg-Trace)
[2022-04-22] MEDS: 0.9 % Sodium Chloride 1,000 ML 100 ML IVCONT (09:47)
[2022-04-22] MEDS: 0.9 % Sodium Chloride Flush 3 ML SYRINGE IVFLUSH (09:48)
[2022-04-22 09:51] LABS: Procalcitonin 178.51 ng/mL
[2022-04-22 09:58] LABS: Bacteria Urine None Seen (None Seen); Granular Casts Urine Present; RBC Urine 0-2 /HPF (0-2); UACC Culture Trigger YES; WBC Urine 21-50 /HPF (0-5)
--- NOTE | 2022-04-22 11:25 | PC.NURSE ---
[facility] sent to dr lebron for pts elevated troponin of 70.7. repeat verbal of troponin of 70.7 and new critical of +blood cultures, one bottle from each blood culture set was positive for gram negative rods
--- NOTE | 2022-04-22 11:26 | PC.NURSE ---
pt questioning having her hydralazine ordered, pt had one soft BP in the ER but has otherwise been slightly elevated
--- NOTE | 2022-04-22 11:36 | PM.GICN ---
History of Present Illness Data of Consult Service Date: 04/22/22 Requesting physician: Shadi Pierce Primary Care Provider: Nehal Gimenez MD [facility] Reason for consult: abdominal pain 81-year-old female with a past medical history of hypertension, hyperlipidemia, Pre DM, CAD status post stent, pancreatic cystic lesion, left bundle-branch block who I am seeing for assessment for abdominal pain. Seh noted 3 d of sudden onset crampy left lower abdominal pain, 10/10 in severity along with nausea, and non bloody emesis. no constipation, diarrhea, rectal bleeding, or melena. no bovious exacerbating or relieving factors. appetite is poor, no fevers or chills, has persistent nausea but pain less to 4-5/10 now. She is keen to try some jello. No recent foreign travel or ingestion of poorly cooked meats or sick contacts. Since admission been more sob and requiring oxygen CXR with some diffuse infiltrates, possibly from fluid overload LABS: raised trop, raised WCC< coming down, raised procalcitonin, crp-21, BNP 300, Blood cultures pos for GNR UA pos for wcc, blood, protein IMAGING: CT--pancreatic cyst, diverticulitis with stranding of left sided colon, atherosclerosis, Last colonoscopy: 2019--severe diverticulosis with angulated sigmodi, internal hemorrhoids, and polyps removed. Review of Systems Review of Systems: Constitutional : No Weight loss, No Fever, No Chills, No Night Sweats, No Fatigue, No Malaise ENT/Mouth : No Hearing loss, No Ear Pain, No Nasal Congestion, No Sinus Pain, No Hoarseness, No sore throat, No Rhinorrhea, No Swallowing Difficulty Eyes: No Eye Pain, No Swelling, No Redness, No Foreign Body, No Discharge, No Vision Changes Cardiovascular : + Chest Pain, No SOB, No Dyspnea on Exertion, No Orthopnea, + LE Edema, No Palpitations Respiratory : No Cough, No Sputum, No Wheezing, No Smoke Exposure, No Dyspnea Gastrointestinal : No Nausea, + Vomiting, + Diarrhea, + Constipation, + abdominal Pain, No Hematochezia, No Melena Genitourinary : no irregular bleeding, No Dysuria, No Urinary Frequency, No Hematuria, No Urinary Incontinence, No Urgency, No Flank Pain, No Urinary Flow Changes, No Hesitancy Musculoskeletal : No joint pain, No Myalgias, No Joint Swelling Skin : No Skin Lesions, No rash Neuro : No Weakness, No Numbness, No Paresthesias, No Loss of Consciousness, No Dizziness, No Headache Psych : No Anxiety/Panic, No Depression, No SI/HI/AH/VH, No Social Issues, Heme/Lymph: No Bruising, No Bleeding,No Lymphadenopathy Endocrine : No Polyuria, No Polydipsia, No Temperature Intolerance [facility] Past Medical History Medical History Abdominal pain Atypical ductal hyperplasia of left breast Constipation Coronary artery disease Diverticulosis of colon History of anesthesia problem History of diverticulitis Hx of gastritis Hypercholesterolemia Hypertension Incontinence of feces Left bundle branch block (LBBB) Pancreatic mass Family History Family History Mother Gastric cancer Surgical History Surgical History History of esophagogastroduodenoscopy (EGD) History of eye surgery History of heart artery stent History of left breast biopsy History of parotid gland removal Hx of bilateral cataract extraction Hx of colonoscopy Hx of dilation and curettage Social History Social History Household Members: None Housing: Apartment Are you a primary resident care aid to a significant other at home: No Do you presently have visiting nurse or other home services: No Alcohol intake: never Patient Tobacco Use Status: Former Tobacco user Quit Date: 2010 Tobacco use type: Cigarette Advance Directives Date on File: 04/30/20 service: No Current occupational status: retired Meds Allergies Allergy/AdvReac Type Severity Reaction Status Date / Time No Known Allergies Allergy Verified 03/18/22 09:45 [No Known Allergies*] Active Medications: Current Medications Acetaminophen (Acetaminophen 325 Mg Tablet) 650 mg PO Q6H PRN PRN Reason: Pain, Mild (Pain Scale 1-3) Albuterol/Ipratropium (Albuterol/Iprat 2.5/0.5mg 3 Ml Ampul.Neb) 3 ml INHALE RQ4H PRN PRN Reason: Shortness of Breath/Wheezing Atorvastatin Calcium (Atorvastatin Calcium 80 Mg Tablet) 80 mg PO DAILY@2100 [facility] Ceftriaxone Sodium 1 gm/ (Sodium Chloride) 50 mls @ 100 mls/hr IV Q24H [facility] Sodium Chloride (Ns) 1,000 mls @ 100 mls/hr IVCONT .Q10H [facility] Stop: 04/22/22 18:44 Last Admin: 04/22/22 09:47 Dose: 100 mls/hr Metronidazole (Flagyl) 500 mg in 100 mls @ 100 mls/hr IV Q8H [facility] Levothyroxine Sodium (Levothyroxine Sodium 112 Mcg Tablet) 112 mcg PO 0600 [facility] Last Admin: 04/22/22 09:40 Dose: 112 mcg Melatonin (Melatonin 3 Mg Tablet) 6 mg PO BEDTIME PRN PRN Reason: Insomnia Morphine Sulfate (Morphine Sulfate 2 Mg/Ml Cartridge) 1 mg IVPUSH Q4H PRN; Protocol PRN Reason: Breakthrough Pain Last Admin: 04/22/22 05:43 Dose: 1 mg Pantoprazole Sodium (Pantoprazole Sodium 40 Mg/10 Ml Vial) 40 mg IVPUSH DAILY@0630 [facility] Last Admin: 04/22/22 09:40 Dose: 40 mg Pharmacy Consult (Consult Rx Perform Med Rec) 1 each MISCELLANE ONCE PRN PRN Reason: Consult order Polyethylene Glycol (Polyethylene Glycol 3350 17 Gm Powd.Pack) 17 gm PO BEDTIME [facility] Prednisone (Prednisone 5 Mg Tablet) 0 mg OG-TUBE .COMPLEX [facility] Senna (Sennosides 8.6 Mg Tablet) 17.2 mg PO BEDTIME PRN PRN Reason: Constipation Sodium Chloride (0.9 % Sodium Chloride Flush 3 Ml Syringe) 3 ml IVFLUSH QSHIFT [facility] Last Admin: 04/22/22 09:48 Dose: 3 ml Vitamin D (Cholecalciferol (Vitamin D3) 25 Mcg Tablet) 25 mcg PO DAILY [facility] Last Admin: 04/22/22 09:40 Dose: 25 mcg Home Medications Medication Instructions Recorded Confirmed Last Taken Type amlodipine 10 mg tablet 10 mg PO BEDTIME 06/12/20 04/21/22 04/21/22 History aspirin 81 mg tablet,delayed 81 mg PO DAILY 06/12/20 04/21/22 04/21/22 History release (Adult Low Dose Aspirin) levothyroxine 112 mcg tablet 112 mcg PO DAILY 06/12/20 04/21/22 04/21/22 History rosuvastatin 40 mg tablet 40 mg PO DAILY 1104/21/22 04/21/22 History hydralazine 25 mg tablet 25 mg PO BID 03/06/22 04/21/22 04/21/22 History cholecalciferol (vitamin D3) 25 25 mcg PO DAILY 03/10/22 04/21/22 04/21/22 History mcg (1,000 unit) capsule (Vitamin D3) losartan 100 mg tablet 1 tab PO DAILY 04/21/22 04/21/22 04/21/22 History omeprazole 20 mg capsule,delayed 1 cap PO DAILY 04/21/22 04/21/22 04/21/22 History release polyethylene glycol 3350 17 gram 17 g PO BEDTIME 04/21/22 04/21/22 04/21/22 History oral powder packet (Miralax) prednisone 5 mg tablet See Rx Instructions .Route .COMPLEX 04/21/22 04/21/22 04/21/22 History Physical Exam Vital Signs: Vital Signs: Last Vital Signs Temp 98.7 F 04/22/22 06:29 Pulse 86 04/22/22 11:31 Resp 20 04/22/22 11:31 BP 126/43 L 04/22/22 11:31 Pulse Ox 94 04/22/22 11:31 O2 Del Method 04/22/22 09:38 O2 Flow Rate 6 04/22/22 06:29 BMI result Body Mass Index 31.4 EXAM: GENERAL: The patient is frail, on oxygen NC VITAL SIGNS:see workflow HEENT: Nonicteric sclerae, PERRLA, EOMI. Oropharynx clear. Moist mucous membranes. Conjunctivae appear well perfused. No thyroid mass. CHEST: Chest wall is nontender. HEART: Regular rate and rhythm without murmurs. LUNGS: Crackles left base ABDOMEN: Soft, positive bowel sounds, tender LLQ, no organomegaly.no flank tenderness SKIN: No rash, no excessive bruising, petechiae, or purpura. NEUROLOGIC: Cranial nerves II-XII intact without motor/sensory deficit. psych- nml affect Results Labs CBC & Chem 7: 04/22/22 07:06 04/22/22 07:06 Labs: Short CBC 04/21/22 04/21/22 04/22/22 Range/Units 14:42 21:55 07:06 WBC 9.7 25.0 H 15.6 H (4.8-10.8) X10*3/uL Hgb 9.8 L 9.5 L 9.2 L (12.0-16.0) g/dl Hct 31.8 L 29.9 L 29.8 L (37.0-47.0) % Plt Count 249 272 224 (160-400) X10*3/uL BMP 04/21/22 04/22/22 14:42 07:06 Sodium 143 140 Potassium 4.4 4.1 Chloride 104 105 Carbon Dioxide 25 22 BUN 27 H 29 H Creatinine 1.49 H 1.53 H Calcium 9.5 8.4 D Cardiac Enzymes 04/21/22 Range/Units 14:42 Total Creatine Kinase 43 (26-140) U/L Liver Function 04/21/22 Range/Units 14:42 Total Bilirubin 0.7 (0.0-1.0) mg/dL Direct Bilirubin 0.4 (0.0-0.5) mg/dL AST 15 (5-31) U/L ALT 18 (0-31) U/L Alkaline Phosphatase 105 D (39-117) U/L Albumin 3.7 (3.5-5.0) g/dL Urine 04/22/22 Range/Units 09:10 Urine Color Yellow Urine Appearance Turbid Urine pH 5.5 (5.0-9.0) Ur Specific [place] 1.020 (1.005-1.025) Urine Protein 300 (3+) H (Neg-Trace) mg/dL Urine Glucose (UA) Negative (Negative) mg/dL Microbiology Microbiology Results: Microbiology 04/21/22 21:53 Blood - Venous Blood Culture - Preliminary Prelim: GNR Gram Stain only 04/21/22 21:53 Blood - Venous Blood Culture - Preliminary Prelim: GNR Gram Stain only Imaging CT scan - abdomen: Attestation: I personally reviewed and interpreted this imaging study as follows: (pancreatic cyst, diverticulitis with stranding of left sided colon, atherosclerosis, ) Chest x-ray: Attestation: I personally reviewed and interpreted this imaging study as follows: My impression: infiltrates both lungs Assessment and Plan (1) Diverticulitis: Status: Acute Plan 1/ Diverticulitis with GNR bacteremia, seems to be improving, but some fluid overload from cardiac stress or low level ARDS from bacteremia. 2/ Anemia, normocytic maybe from her curent severe illness, no overt GI bleeding PLAN: 1/ check iron studies, b12, folate, LDH 2/ cnt with abx plan as doing 3/ allow PO diet as tolerated 4/ might need an EGD< will decide based on clincial status and HGB trends, meantime ok to use PPI 5/ surgical eval if worsening clinical status Procedures Date of Service Date of Service: 04/22/22
--- NOTE | 2022-04-22 11:57 | MHC.CM.PN ---
Patient lives alone in an apartment on the first floor of a 4 family house that she owns and she uses a rollator PRN. Home/no services is the goal and CM has initiated and will follow for dc planning. Patient has received Moderna/Covid vax x3 and her PCP is DR. Gimenez.IMM addressed.
[2022-04-22] MEDS: Furosemide 40 MG/4 ML VIAL IVPUSH (14:24)
--- NOTE | 2022-04-22 15:10 | HO.PM.IMPN ---
Subjective Subjective Date of Service: 04/22/22 Interval History: abd pain improved chronic dyspnea no current chest pain 2 of 2 sets of BCx growing GNRs Review of Systems Review of Systems: Yes all other systems are reviewed and are negative Physical Exam Vital Signs: Vital Signs: Last Vital Signs Temp 98.7 F 04/22/22 06:29 Pulse 77 04/22/22 14:16 Resp 18 04/22/22 14:16 BP 118/41 L 04/22/22 14:16 Pulse Ox 97 04/22/22 14:16 O2 Del Method 04/22/22 09:38 O2 Flow Rate 6 04/22/22 06:29 BMI result Body Mass Index 31.4 Gen: in no acute distress HEENT: sclera anicteric, moist mucus membranes Neck: supple Lungs: coarse inspiratory crackles at basese bilaterally Heart: regular rate and rhythm, no murmurs Abd: soft, LLQ + RLQ tenderness without rebound/guarding Ext: no edema Skin: warm/well-perfused Neuro: alert and oriented x3, no focal findings Psych: appropriate affect Objective Data Active Medications Acetaminophen (Acetaminophen 325 Mg Tablet) 650 mg PO Q6H PRN PRN Reason: Pain, Mild (Pain Scale 1-3) Albuterol/Ipratropium (Albuterol/Iprat 2.5/0.5mg 3 Ml Ampul.Neb) 3 ml INHALE RQ4H PRN PRN Reason: Shortness of Breath/Wheezing Atorvastatin Calcium (Atorvastatin Calcium 80 Mg Tablet) 80 mg PO DAILY@2100 [facility] Ceftriaxone Sodium 1 gm/ (Sodium Chloride) 50 mls @ 100 mls/hr IV Q24H [facility] Metronidazole (Flagyl) 500 mg in 100 mls @ 100 mls/hr IV Q8H [facility] Levothyroxine Sodium (Levothyroxine Sodium 112 Mcg Tablet) 112 mcg PO 0600 [facility] Last Admin: 04/22/22 09:40 Dose: 112 mcg Documented By: OLIVER Melatonin (Melatonin 3 Mg Tablet) 6 mg PO BEDTIME PRN PRN Reason: Insomnia Morphine Sulfate (Morphine Sulfate 2 Mg/Ml Cartridge) 1 mg IVPUSH Q4H PRN; Protocol PRN Reason: Breakthrough Pain Last Admin: 04/22/22 14:36 Dose: 1 mg Documented By: OLIVER Pantoprazole Sodium (Pantoprazole Sodium 40 Mg/10 Ml Vial) 40 mg IVPUSH DAILY@0630 [facility] Last Admin: 04/22/22 09:40 Dose: 40 mg Documented By: OLIVER Pharmacy Consult (Consult Rx Perform Med Rec) 1 each MISCELLANE ONCE PRN PRN Reason: Consult order Polyethylene Glycol (Polyethylene Glycol 3350 17 Gm Powd.Pack) 17 gm PO BEDTIME [facility] Prednisone (Prednisone 5 Mg Tablet) 0 mg OG-TUBE .COMPLEX [facility] Senna (Sennosides 8.6 Mg Tablet) 17.2 mg PO BEDTIME PRN PRN Reason: Constipation Sodium Chloride (0.9 % Sodium Chloride Flush 3 Ml Syringe) 3 ml IVFLUSH QSHIFT [facility] Last Admin: 04/22/22 09:48 Dose: 3 ml Documented By: OLIVER Vitamin D (Cholecalciferol (Vitamin D3) 25 Mcg Tablet) 25 mcg PO DAILY [facility] Last Admin: 04/22/22 09:40 Dose: 25 mcg Documented By: OLIVER Labs CBC & Chem 7: 04/22/22 07:06 04/22/22 07:06 Labs: Laboratory Results - last 24 hr 04/21/22 04/21/22 04/21/22 14:42 20:46 20:46 MCV MCH MCHC RDW Plt Count MPV Immature Gran % (Auto) Neut % (Auto) Lymph % (Auto) [place] % (Auto) Eos % (Auto) Baso % (Auto) Lymph # (Auto) [place]cl[place] # (Auto) Eos # (Auto) Baso # (Auto) Abs Immat Gran (auto) Absolute Neuts (auto) Absolute Nucleated RBC Nucleated RBC % (auto) Smear Tech's Comments PT INR Anion Gap 18 Estim Creat Clear Calc 26.4 Estimated GFR 34 Random Glucose 128 H Lactic Acid Calcium 9.5 Total Bilirubin 0.7 Direct Bilirubin 0.4 AST 15 ALT 18 Alkaline Phosphatase 105 D Total Creatine Kinase 43 C-Reactive Protein B-Natriuretic Peptide 429 H Total Protein 6.2 L Albumin 3.7 Lipase 11 Procalcitonin Urine Color Urine Appearance Urine pH Ur Specific [place] Urine Protein Urine Glucose (UA) Urine Ketones Urine Blood Urine Nitrite Ur Leukocyte Esterase Urine RBC Urine WBC Ur Squamous Epith Cells Urine Bacteria Hyaline Casts Granular Casts Stool Occult Blood Respiratory Panel [place] Adenovirus (Rapid PCR) B.pert (TEM-PCR) B.parapertussis DNA PCR C. pneumoniae DNA (PCR) Coronavirus OC43 (PCR) Coronavirus HKU1 (PCR) Coronavirus 229E (PCR) COVID-19 (THO) Negative COVID-19 Clin Com See Note Coronavirus NL63 (PCR) Human Metapneumovir PCR Influenza A (RT-PCR) Influenza B (RT-PCR) M. pneumoniae (PCR) Parainfluenza 1 (PCR) Parainfluenza 2 (PCR) Parainfluenza 3 (PCR) Parainfluenza 4 (PCR) RSV (PCR) Entero/Rhino (PCR) SARS-CoV-2 RNA (RT-PCR) Blood Type Antibody Screen 04/21/22 04/21/22 04/21/22 20:46 21:54 21:54 MCV MCH MCHC RDW Plt Count MPV Immature Gran % (Auto) Neut % (Auto) Lymph % (Auto) [place] % (Auto) Eos % (Auto) Baso % (Auto) Lymph # (Auto) [place] # (Auto) Eos # (Auto) Baso # (Auto) Abs Immat Gran (auto) Absolute Neuts (auto) Absolute Nucleated RBC Nucleated RBC % (auto) Smear Tech's Comments PT 12.8 INR 1.1 Anion Gap Estim Creat Clear Calc Estimated GFR Random Glucose Lactic Acid 1.5 Calcium Total Bilirubin Direct Bilirubin AST ALT Alkaline Phosphatase Total Creatine Kinase C-Reactive Protein B-Natriuretic Peptide Total Protein Albumin Lipase Procalcitonin Urine Color Urine Appearance Urine pH Ur Specific [place] Urine Protein Urine Glucose (UA) Urine Ketones Urine Blood Urine Nitrite Ur Leukocyte Esterase Urine RBC Urine WBC Ur Squamous Epith Cells Urine Bacteria Hyaline Casts Granular Casts Stool Occult Blood POSITIVE Respiratory Panel [place]once Adenovirus (Rapid PCR) B.pert (TEM-PCR) B.parapertussis DNA PCR C. pneumoniae DNA (PCR) Coronavirus OC43 (PCR) Coronavirus HKU1 (PCR) Coronavirus 229E (PCR) COVID-19 (THO) COVID-19 Clin Com Coronavirus NL63 (PCR) Human Metapneumovir PCR Influenza A (RT-PCR) Influenza B (RT-PCR) M. pneumoniae (PCR) Parainfluenza 1 (PCR) Parainfluenza 2 (PCR) Parainfluenza 3 (PCR) Parainfluenza 4 (PCR) RSV (PCR) Entero/Rhino (PCR) SARS-CoV-2 RNA (RT-PCR) Blood Type Antibody Screen 04/21/22 04/21/22 04/22/22 21:54 21:55 07:06 MCV 96.1 95.8 MCH 30.5 29.6 MCHC 31.8 30.9 L RDW 16.2 H 16.2 H Plt Count 272 224 MPV 10.8 10.5 Immature Gran % (Auto) 1.1 H 0.5 H Neut % (Auto) 93.6 H 90.4 H Lymph % (Auto) 1.4 L 5.8 L Mcclain % (Auto) 3.4 3.1 Eos % (Auto) 0.3 0.0 Baso % (Auto) 0.2 0.2 Lymph # (Auto) 0.4 L 0.9 L Mccl[place] # (Auto) 0.9 0.5 Eos # (Auto) 0.1 0.0 Baso # (Auto) 0.1 0.0 Abs Immat Gran (auto) 0.27 H 0.08 H Absolute Neuts (auto) 23.4 H 14.1 H Absolute Nucleated RBC 0.000 0.000 Nucleated RBC % (auto) 0.0 0.0 Smear Tech's Comments VERIFIED VERIFIED PT INR Anion Gap Estim Creat Clear Calc Estimated GFR Random Glucose Lactic Acid Calcium Total Bilirubin Direct Bilirubin AST ALT Alkaline Phosphatase Total Creatine Kinase C-Reactive Protein B-Natriuretic Peptide Total Protein Albumin Lipase Procalcitonin Urine Color Urine Appearance Urine pH Ur Specific [place] Urine Protein Urine Glucose (UA) Urine Ketones Urine Blood Urine Nitrite Ur Leukocyte Esterase Urine RBC Urine WBC Ur Squamous Epith Cells Urine Bacteria Hyaline Casts Granular Casts Stool Occult Blood Respiratory Panel Ponce Adenovirus (Rapid PCR) B.pert (TEM-PCR) B.parapertussis DNA PCR C. pneumoniae DNA (PCR) Coronavirus OC43 (PCR) Coronavirus HKU1 (PCR) Coronavirus 229E (PCR) COVID-19 (THO) COVID-19 Clin Com Coronavirus NL63 (PCR) Human Metapneumovir PCR Influenza A (RT-PCR) Influenza B (RT-PCR) M. pneumoniae (PCR) Parainfluenza 1 (PCR) Parainfluenza 2 (PCR) Parainfluenza 3 (PCR) Parainfluenza 4 (PCR) RSV (PCR) Entero/Rhino (PCR) SARS-CoV-2 RNA (RT-PCR) Blood Type A Positive Antibody Screen NEGATIVE 04/22/22 04/22/22 04/22/22 07:06 07:06 07:06 MCV MCH MCHC RDW Plt Count MPV Immature Gran % (Auto) Neut % (Auto) Lymph % (Auto) [place] % (Auto) Eos % (Auto) Baso % (Auto) Lymph # (Auto) [place] # (Auto) Eos # (Auto) Baso # (Auto) Abs Immat Gran (auto) Absolute Neuts (auto) Absolute Nucleated RBC Nucleated RBC % (auto) Smear Tech's Comments PT INR Anion Gap 17 Estim Creat Clear Calc 25.7 Estimated GFR 33 Random Glucose 114 Lactic Acid Calcium 8.4 D Total Bilirubin Direct Bilirubin AST ALT Alkaline Phosphatase Total Creatine Kinase C-Reactive Protein 21.43 H B-Natriuretic Peptide 305 H Total Protein Albumin Lipase Procalcitonin 178.51 Urine Color Urine Appearance Urine pH Ur Specific [place] Urine Protein Urine Glucose (UA) Urine Ketones Urine Blood Urine Nitrite Ur Leukocyte Esterase Urine RBC Urine WBC Ur Squamous Epith Cells Urine Bacteria Hyaline Casts Granular Casts Stool Occult Blood Respiratory Panel Ponce Adenovirus (Rapid PCR) B.pert (TEM-PCR) B.parapertussis DNA PCR C. pneumoniae DNA (PCR) Coronavirus OC43 (PCR) Coronavirus HKU1 (PCR) Coronavirus 229E (PCR) COVID-19 (THO) COVID-19 Clin Com Coronavirus NL63 (PCR) Human Metapneumovir PCR Influenza A (RT-PCR) Influenza B (RT-PCR) M. pneumoniae (PCR) Parainfluenza 1 (PCR) Parainfluenza 2 (PCR) Parainfluenza 3 (PCR) Parainfluenza 4 (PCR) RSV (PCR) Entero/Rhino (PCR) SARS-CoV-2 RNA (RT-PCR) Blood Type Antibody Screen 04/22/22 04/22/22 09:10 14:01 MCV MCH MCHC RDW Plt Count MPV Immature Gran % (Auto) Neut % (Auto) Lymph % (Auto) [place] % (Auto) Eos % (Auto) Baso % (Auto) Lymph # (Auto) [place]cl[place] # (Auto) Eos # (Auto) Baso # (Auto) Abs Immat Gran (auto) Absolute Neuts (auto) Absolute Nucleated RBC Nucleated RBC % (auto) Smear Tech's Comments PT INR Anion Gap Estim Creat Clear Calc Estimated GFR Random Glucose Lactic Acid Calcium Total Bilirubin Direct Bilirubin AST ALT Alkaline Phosphatase Total Creatine Kinase C-Reactive Protein B-Natriuretic Peptide Total Protein Albumin Lipase Procalcitonin Urine Color Yellow Urine Appearance Turbid Urine pH 5.5 Ur Specific [place] 1.020 Urine Protein 300 (3+) H Urine Glucose (UA) Negative Urine Ketones Negative Urine Blood Small (1+) H Urine Nitrite Negative Ur Leukocyte Esterase Small (1+) H Urine RBC 0-2 Urine WBC 21-50 H Ur Squamous Epith Cells 6-10 Urine Bacteria None Seen Hyaline Casts 11-20 Granular Casts Present Stool Occult Blood Respiratory Panel [place]once Cancelled Adenovirus (Rapid PCR) Cancelled B.pert (TEM-PCR) Cancelled B.parapertussis DNA PCR Cancelled C. pneumoniae DNA (PCR) Cancelled Coronavirus OC43 (PCR) Cancelled Coronavirus HKU1 (PCR) Cancelled Coronavirus 229E (PCR) Cancelled COVID-19 (THO) COVID-19 Clin Com Coronavirus NL63 (PCR) Cancelled Human Metapneumovir PCR Cancelled Influenza A (RT-PCR) Cancelled Influenza B (RT-PCR) Cancelled M. pneumoniae (PCR) Cancelled Parainfluenza 1 (PCR) Cancelled Parainfluenza 2 (PCR) Cancelled Parainfluenza 3 (PCR) Cancelled Parainfluenza 4 (PCR) Cancelled RSV (PCR) Cancelled Entero/Rhino (PCR) Cancelled SARS-CoV-2 RNA (RT-PCR) Cancelled Blood Type Antibody Screen Impressions Abdomen/Pelvis CT 04/21/22 19:15 IMPRESSION: 1. Mild to moderate diverticulitis of the sigmoid colon. No abscess or obstruction. 2. Cardiomegaly. Small pericardial effusion. 3. Stable pancreatic cystic lesion. 4. Stable hepatic cysts. No follow-up imaging is recommended for simple renal cyst. Fleischner guidelines were followed. Chest X-Ray 04/21/22 20:35 IMPRESSION: Cardiomegaly with increased coarse interstitial thickening. Cannot exclude interstitial edema. No focal infiltrate Chest X-Ray 04/22/22 05:55 IMPRESSION: Developing diffuse bronchial wall thickening and streaky airspace opacities bilaterally more pronounced on the right suggestive of an atypical pneumonitis. Microbiology Microbiology Results: Microbiology 04/21/22 21:53 Blood Culture - Preliminary Blood - Venous Prelim: GNR Gram Stain only 04/21/22 21:53 Blood Culture - Preliminary Blood - Venous Prelim: GNR Gram Stain only Assessment and Plan (1) Congestive heart failure: Status: Acute (2) Diverticulitis: Status: Acute Plan 81yo F with CAD s/p PCI, LBBB, HTN, HLD, preDM, pancreatis cystic lesion s/p recent EUS presented with abd pain, found to have diverticulitis, Gm-neg bacteremia, CHF exacerbation, atypical pneumonitis # Gm-negative bacteremia - follow BCx, increase ceftriaxone to 2g IV daily # diverticulitis - ceftriaxone + metronidazole d#2, clear liquid diet # CHF exacerbation - diureses with IV furosemide x 1 dose. TTE pending. Cardiology following # question of atypical pneumonitis - will add doxycycline to ceftriaxone. PCT is markedly elevated at 178.5- trend. ID consult. check Legionella urine Ag. # Tn-I elevation - per Cardiology likely demand/type 2 ischemia. no heparin indicated. add back ASA when question of GI bleed resolves. # FOBT+ stool - GI consult. ASA on hold. monitor Hb. IV PPI empirically. # TOMA - prerenal/cardiorenal? monitor with diuresis. hold losartan # question of temporal arteritis - reportedly had negative biopsy and is on prednisone taper- continue # HTN - holding amlodipine, losartan, and hyralazine for soft BP/TOMA # CAD # HLD - continue statin; resume ASA as above # hypothyroidism - continue LT4 # VTE ppx: SCDs In my clinical judgment, the patient requires continued hospitalization for the following reasons: IV ABX Quality Stroke Does the patient have a stroke diagnosis?: No VTE Prior VTE?: No VTE Risk Level:: Medical - moderate - high VTE Device Contraindication: N/A - Device Ordered VTE Drug Contraindication: Treatment Not Indicated
[2022-04-22] MEDS: Doxycycline Hyclate 100 MG in 0.9 % Sodium Chloride 250 ML 166.67 MG IV (15:45)
[2022-04-22 16:43] LABS: Adenovirus PCR Not Detected (Not Detect.); Bordetella parapertussis PCR Not Detected (Not Detect.); Bordetella pertussis PCR Not Detected (Not Detect.); Chlamydia pneumoniae PCR Not Detected (Not Detect.); Coronavirus 229E PCR Not Detected (Not Detect.); Coronavirus HKU1 PCR Not Detected (Not Detect.); Coronavirus NL63 PCR Not Detected (Not Detect.); Coronavirus OC43 PCR Not Detected (Not Detect.); Human metapneumovirus PCR Not Detected (Not Detect.); Influenza A PCR Not Detected (Not Detect.); Influenza B PCR Not Detected (Not Detect.); Mycoplasma pneumoniae PCR Not Detected (Not Detect.); Parainfluenza 1 PCR Not Detected (Not Detect.); Parainfluenza 2 PCR Not Detected (Not Detect.); Parainfluenza 3 PCR Not Detected (Not Detect.); Parainfluenza 4 PCR Not Detected (Not Detect.); RSV PCR Not Detected (Not Detect.); Rhino/Enterovirus PCR Not Detected (Not Detect.); SARS-CoV-2 PCR Not Detected (Not Detect.)
--- NOTE | 2022-04-22 17:02 | PC.NURSE ---
pt c/o pain during doxycycline infusion. asked MD if rate could be lowered to lessen discomfort. MD allowed, med currently running at 111 mL/hr.
[2022-04-22] MEDS: Atorvastatin Calcium 80 MG TABLET PO (18:14)
[2022-04-22 19:15] LABS: Iron 8 mcg/dL (30-160); Lactate Dehydrogenase 250 U/L (122-220); Percent Iron Saturation 4 % (15-50); Total Iron Binding Capacity 202 mcg/dL (228-428); Unsaturated Iron Binding 194 ug/dL
[2022-04-22 19:37] LABS: Ferritin 256 ng/mL (10-250)
[2022-04-22] MEDS: polyethylene glycoL 3350 17 GM POWD.PACK PO (22:23)
[2022-04-23] VITALS (25 sets, daily range): BP systolic 96–128; BP diastolic 30–60; PULSE 70–127; RESP 13–39; TEMP 36.4–38.6; O2SAT 71–100
--- NOTE | 2022-04-23 | ECG_ITS ---
Test Reason : high heart rate Blood Pressure : / mmHG Vent. Rate : 115 BPM Atrial Rate : 115 BPM P-R Int : 112 ms QRS Dur : 126 ms QT Int : 354 ms P-R-T Axes : 048 025 074 degrees QTc Int : 489 ms Sinus tachycardia Left bundle branch block Abnormal ECG When compared with ECG of 21-APR-2022 21:17, Heart rate has increased Referred By: Shadi Pierce Electronically Signed By:ROCKY GONZALEZ
[2022-04-23] MEDS: 0.9 % Sodium Chloride Flush 3 ML SYRINGE IVFLUSH ×5 (00:11→19:58)
[2022-04-23] MEDS: cefTRIAXone sodium 2 GM in 0.9 % Sodium Chloride 50 ML IV (01:33)
[2022-04-23] MEDS: Albuterol/Iprat 2.5/0.5MG 3 ML AMPUL.NEB INHALE (02:44)
--- NOTE | 2022-04-23 03:14 | PM.EVENT ---
Event Note Date of Service: 04/23/22 Event Note: Acute hypoxic respiratory failure: Patient became acutely hypoxic, tachypneic and tachycardic around 03:00. On exam patient noted to be anxious, on lung exam patient has bilateral rales and rhonchi Patient was noted to be hypoxic-placed on non-rebreather but still hypoxic; subsequently transitioned to BiPAP. Chest x-ray, ABG, labs pending Patient was given morphine as patient appeared to be anxious Also given nitro patch, Lasix IV x1; Natacha. Spoke to ICU dr Uriostegui; pt is accepted to ICU
[2022-04-23 03:17] LABS: Glucose, Whole Blood 120 mg/dL (60-115)
[2022-04-23] MEDS: Furosemide 40 MG/4 ML VIAL IVPUSH (03:36)
--- NOTE | 2022-04-23 03:46 | W.PM.CCCN ---
History of Present Illness Data of Consult Service Date: 04/23/22 Requesting physician: Shadi Pierce Primary Care Provider: Nehal Gimenez MD [facility] Reason for consult: Hypoxia The patient is a 81-year-old female with a past medical history of hypertension, hyperlipidemia, CAD status post stent, pancreatic cystic lesion -recent EUS, left bundle-branch block? who presented to the emergency room on 04/21/2022 for? abdominal pain, admitted to Hospital Medicine for diverticulitis, Gram-negative bacteremia? and Congestive heart failure exacerbation.?? Tonight, rapid response team activated due to patient becoming? acutely hypoxic? saturation in the 70s,? tachypneic and tachycardic.? She was initially placed on non-rebreather? but continued to be hypoxic she require? BiPAP initiation.? ? On my assessment at 0340,? patient is alert and oriented x3,? with? increased work of breathing,? tachypneic at 30s? on BIPAP.? Satting 92%. ? Lungs with rales throughout. ?tachycardic to 110s, S1-S2 present. No M/R/G. Normal capillary refill, pulses present in all extremities, abdomen soft, non tender.? skin warm and dry. +2 BLE edema.? ? Will transfer patient to the ICU? for management of acute hypoxic respiratory failure? requiring BiPAP support Review of Systems Constitutional: Constitutional: Denies chills, Denies fever(s) and Denies weakness Cardiovascular: Cardiovascular: Denies chest pain, Reports rapid heart rate, Denies lightheadedness and Reports dyspnea Respiratory: Respiratory: Reports cough, Denies hemoptysis and Reports dyspnea Gastrointestinal: Gastrointestinal: Denies abdominal pain, Denies nausea and Denies vomiting Musculoskeletal: Musculoskeletal: Denies muscle weakness and Denies numbness Neurologic: Denies numbness and Denies weakness PMFSH Past Medical History Medical History Abdominal pain Atypical ductal hyperplasia of left breast Constipation Coronary artery disease Diverticulosis of colon History of anesthesia problem History of diverticulitis Hx of gastritis Hypercholesterolemia Hypertension Incontinence of feces Left bundle branch block (LBBB) Pancreatic mass Family History Family History Mother Gastric cancer Surgical History Surgical History History of esophagogastroduodenoscopy (EGD) History of eye surgery History of heart artery stent History of left breast biopsy History of parotid gland removal Hx of bilateral cataract extraction Hx of colonoscopy Hx of dilation and curettage Social History Social History Household Members: None Housing: Apartment Are you a primary care information associate to a significant other at home: No Do you presently have visiting nurse or other home services: No Alcohol intake: never Patient Tobacco Use Status: Former Tobacco user Quit Date: 2010 Tobacco use type: Cigarette Advance Directives Date on File: 04/30/20 service: No Current occupational status: retired [employer] Allergies Allergy/AdvReac Type Severity Reaction Status Date / Time No Known Allergies Allergy Verified 03/18/22 09:45 [No Known Allergies*] Active Medications: Current Medications Acetaminophen (Acetaminophen 325 Mg Tablet) 650 mg PO Q6H PRN PRN Reason: Pain, Mild (Pain Scale 1-3) Albuterol/Ipratropium (Albuterol/Iprat 2.5/0.5mg 3 Ml Ampul.Neb) 3 ml INHALE RQ4H PRN PRN Reason: Shortness of Breath/Wheezing Last Admin: 04/23/22 02:44 Dose: 3 ml Atorvastatin Calcium (Atorvastatin Calcium 80 Mg Tablet) 80 mg PO DAILY@2100 [facility] Last Admin: 04/22/22 22:26 Dose: Not Given Doxycycline Hyclate 100 mg/ (Sodium Chloride) 250 mls @ 166.67 mls/hr IV Q12H [facility] Last Infusion: 04/22/22 22:11 Dose: Infused Ceftriaxone Sodium 2 gm/ (Sodium Chloride) 50 mls @ 100 mls/hr IV Q24H [facility] Last Admin: 04/23/22 01:33 Dose: 100 mls/hr Metronidazole (Flagyl) 500 mg in 100 mls @ 100 mls/hr IV Q8H [facility] Last Infusion: 04/23/22 01:21 Dose: Infused Levothyroxine Sodium (Levothyroxine Sodium 112 Mcg Tablet) 112 mcg PO 0600 [facility] Last Admin: 04/22/22 09:40 Dose: 112 mcg Melatonin (Melatonin 3 Mg Tablet) 6 mg PO BEDTIME PRN PRN Reason: Insomnia Morphine Sulfate (Morphine Sulfate 2 Mg/Ml Cartridge) 1 mg IVPUSH Q4H PRN; Protocol PRN Reason: Breakthrough Pain Last Admin: 04/22/22 22:21 Dose: 1 mg Pantoprazole Sodium (Pantoprazole Sodium 40 Mg/10 Ml Vial) 40 mg IVPUSH DAILY@0630 [facility] Last Admin: 04/22/22 09:40 Dose: 40 mg Pharmacy Consult (Consult Rx Perform Med Rec) 1 each MISCELLANE ONCE PRN PRN Reason: Consult order Polyethylene Glycol (Polyethylene Glycol 3350 17 Gm Powd.Pack) 17 gm PO BEDTIME [facility] Last Admin: 04/22/22 22:23 Dose: 17 gm Prednisone (Prednisone 5 Mg Tablet) 0 mg OG-TUBE .COMPLEX [facility] Senna (Sennosides 8.6 Mg Tablet) 17.2 mg PO BEDTIME PRN PRN Reason: Constipation Sodium Chloride (0.9 % Sodium Chloride Flush 3 Ml Syringe) 3 ml IVFLUSH QSHIFT [facility] Last Admin: 04/23/22 00:11 Dose: 3 ml Vitamin D (Cholecalciferol (Vitamin D3) 25 Mcg Tablet) 25 mcg PO DAILY [facility] Last Admin: 04/22/22 09:40 Dose: 25 mcg Home Medications Medication Instructions Recorded Confirmed Last Taken Type amlodipine 10 mg tablet 10 mg PO BEDTIME 06/12/20 04/21/22 04/21/22 History aspirin 81 mg tablet,delayed 81 mg PO DAILY 06/12/20 04/21/22 04/21/22 History release (Adult Low Dose Aspirin) levothyroxine 112 mcg tablet 112 mcg PO DAILY 06/12/20 04/21/22 04/21/22 History rosuvastatin 40 mg tablet 40 mg PO DAILY 06/12/20 04/21/22 04/21/22 History hydralazine 25 mg tablet 25 mg PO BID 03/06/22 04/21/22 04/21/22 History cholecalciferol (vitamin D3) 25 25 mcg PO DAILY 03/10/22 04/21/22 04/21/22 History mcg (1,000 unit) capsule (Vitamin D3) losartan 100 mg tablet 1 tab PO DAILY 04/21/22 04/21/22 04/21/22 History omeprazole 20 mg capsule,delayed 1 cap PO DAILY 04/21/22 04/21/22 04/21/22 History release polyethylene glycol 3350 17 gram 17 g PO BEDTIME 04/21/22 04/21/22 04/21/22 History oral powder packet (Miralax) prednisone 5 mg tablet See Rx Instructions .Route .COMPLEX 04/21/22 04/21/22 04/21/22 History Physical Exam Vital Signs: Vital Signs: Last Vital Signs Temp 99.9 F 04/22/22 23:28 Pulse 113 H 04/23/22 02:45 Resp 38 H 04/23/22 02:51 BP 132/63 04/22/22 23:28 Pulse Ox 95 04/22/22 23:28 O2 Del Method 04/22/22 23:28 O2 Flow Rate 4 04/22/22 23:28 BMI result Body Mass Index 32.2 Results Labs CBC & Chem 7: 04/22/22 07:06 04/23/22 03:40 Labs: Short CBC 04/22/22 Range/Units 07:06 WBC 15.6 H (4.8-10.8) X10*3/uL Hgb 9.2 L (12.0-16.0) g/dl Hct 29.8 L (37.0-47.0) % Plt Count 224 (160-400) X10*3/uL BMP 04/22/22 07:06 Sodium 140 Potassium 4.1 Chloride 105 Carbon Dioxide 22 BUN 29 H Creatinine 1.53 H Calcium 8.4 D Urine 04/22/22 Range/Units 09:10 Urine Color Yellow Urine Appearance Turbid Urine pH 5.5 (5.0-9.0) Ur Specific [place] 1.020 (1.005-1.025) Urine Protein 300 (3+) H (Neg-Trace) mg/dL Urine Glucose (UA) Negative (Negative) mg/dL Microbiology Microbiology Results: Microbiology 04/21/22 21:53 Blood - Venous Blood Culture - Preliminary Prelim: GNR Gram Stain only 04/21/22 21:53 Blood - Venous Blood Culture - Preliminary Prelim: GNR Gram Stain only Assessment and Plan (1) Acute respiratory failure with hypoxia: Status: Acute (2) Heart failure exacerbated by sotalol: Status: Acute (3) Diverticulitis: Status: Acute (4) TOMA (acute kidney injury): Status: Acute (5) Anemia: Status: Acute (6) Fecal occult blood test positive: Status: Acute Plan Neuro:? No acute issues. Cardiac:? ?Congestive? heart failure-? chest x-ray show worsening? fluid overload.? Receive a total of 60 of Lasix.? Placed on BiPAP.? Will monitor for diuresing.?? ?hypertension/ tachycardia-? given nitro patch during [employer] likely from? Congestive heart failure exacerbation. Trop pending? Pulmonary:? acute hypoxic respiratory failure secondary? likely from worsening congestive heart failure exacerbation. VBGs 7.40/34/61/21.? Continue with diuresing.? Wean BIPAP as tolerated.? ED.? Renal: ? TOMA-? non oliguric. due to underlying Congestive heart failure exacerbation? unable to? give additional fluids.? Continue to monitor? renal indices.? Endo:? No acute issues.?? GI:?? ?Diverticulitis- ? during my assessment the patient denied any pain.? Abdomen soft nontender.? Not acidotic onVBG. She was seen by GI? yesterday,? advised to continue antibiotics? and PPI ID:?? ?Leukocytosis-? patient has Gram-negative bacteremia,?normal lactic acid being treated? with doxy, ceftriaxone, and Flagyl. Cont abx? until blood cultures results.? Heme/Onc:? No acute issues. Psych:? No acute issues. Miscellaneous:? No acute issues. Prophylaxis: ? boots? due to? positive guaiac test.? Pantoprazole for GI prophylaxis Diet:? NPO while on BIPAP Code status status: Full code Critical care time spent:? 60 minutes Case discussed with Dr Uriostegui Critical Care Time Critical Care Time (minutes): 60
[2022-04-23 03:51] LABS: Venous Blood Gas Refer to POC result
[2022-04-23 04:06] LABS: B Type Natriuretic Peptide 139 pg/mL (<100)
--- NOTE | 2022-04-23 04:06 | PC.NURSE ---
Patient c/o difficulty breathing . This RN called into room, LS audible wheezes/rhonchorous. Increased WOB noted. O2 sats in the 40's. RR called and pt placed on nonrebreather. O2 sats increased to the 50's . Hospitalist , respiratory, nursing water control supervisor, ICU nurse to bedside. Patient put on bipap. Lasix total of 60 mg IV ,MS 1 mg IV x2. 1/2 inch of nitropaste ordered/administered. EKG , labs, ABG's, CXR ordered, BP 212/86, HR in the 120's / Patient's O2 sats improved to 96%, BP 158/72, HR 102. ICU consulted. Decision made to transfer to ICU .
[2022-04-23 04:08] LABS: Alanine Aminotransferase 15 U/L (0-31); Albumin Level 2.9 g/dL (3.5-5.0); Alkaline Phosphatase 80 U/L (39-117); Anion Gap 19 (12-20); Aspartate Amino Transferase 22 U/L (5-31); Bilirubin Total 0.4 mg/dL (0.0-1.0); Blood Urea Nitrogen 34 mg/dL (9-16); Calcium 7.9 mg/dL (8.4-10.2); Carbon Dioxide 22 mmol/L (22-29); Chloride 100 mmol/L (96-108); Creatinine Clr Calc Pharmacy 18.8; Estimated Glomerular Filt Rate 22; Glucose Fasting 140 mg/dL (60-99); Potassium 3.6 mmol/L (3.3-5.1); Sodium 137 mmol/L (135-145); Total Protein 5.3 g/dL (6.5-8.0)
[2022-04-23 04:18] LABS: VBG Base Excess -2.4 mmol/L; VBG HCO3 21 mmol/L (22-26); VBG pCO2 34 mmHg; VBG pO2 61 mmHg
[2022-04-23 04:33] LABS: Basophils Percent Auto 0.1 % (0-2); Eosinophils Percent Auto 0.1 % (0-4); Hematocrit 29.8 % (37.0-47.0); Hemoglobin 9.4 g/dl (12.0-16.0); Imm Gran Pct Auto 0.6 % (0.0-0.4); Lymphocytes Absolute Auto 0.7 X10*3/uL (1.2-4.9); Lymphocytes Percent Auto 4.1 % (20-40); MANUAL DIFF FLAG SCAN; Mean Corpuscular HGB Conc 31.5 g/dl (31.0-35.0); Mean Corpuscular Hemoglobin 29.8 pg (27.0-33.0); Mean Corpuscular Volume 94.6 fL (80.0-98.0); Mean Platelet Volume 10.3 fL (9.4-12.3); Monocytes Absolute Auto 0.5 X10*3/uL (0.1-1.2); Monocytes Percent Auto 2.6 % (2-11); Neutrophils Absolute Auto 16.3 x10*3/uL (2.0-8.3); Neutrophils Percent Auto 92.5 % (45-73); Platelet Count 203 X10*3/uL (160-400); Red Blood Count 3.15 X10*6/uL (4.20-5.50); Red Cell Distribution Width 15.9 % (11.0-16.0); SCAN SMEAR FLAG 1; White Blood Count 17.6 X10*3/uL (4.8-10.8)
[2022-04-23] MEDS: Doxycycline Hyclate 100 MG in 0.9 % Sodium Chloride 250 ML 166.67 MG IV (04:33)
[2022-04-23] MEDS: metroNIDAZOLE/NS 500 MG/100 ML PIGGYBACK 100 MG IV ×3 (04:35→21:18)
[2022-04-23 04:45] LABS: Lactic Acid 1.8 mmol/L (0.5-2.0)
[2022-04-23 04:50] LABS: SLIDE REVIEW VERIFIED
--- NOTE | 2022-04-23 04:53 | PC.NURSE ---
Addendum entered by Carly Moreno RN 04/23/22 06:39: PER PATIENT AND FAMILY PLEASE CALL DAUGHTER ROBYN ([phone]) FIRST FOR UPDATES/CONSENT IF NEEDED INSTEAD OF LEX. LEX'S SON 5 MONTHS AGO AND THIS IS A LOT FOR HER TO HANDLE RIGHT NOW. PLEASE GIVE LEX UPDATES IF SHE CALLS, BUT SHE IS UNABLE TO HANDLE MAKING DECISIONS AT THIS TIME. Original Note: TRANSFERRED TO ICU AT 0404 A&O X 4 ON BIPAP RATE 14 16/10 ON 100% - LARGE AIR LEAK NOTED, RT BEDSIDE TO ASSESS GRANT CATH PLACED PER TIME SIGNAL WIRER ORDER - 175 ML DRAINED UPON PLACEMENT CORE TEMP 101.5 UPON INSERTION OF CORE TEMP GRANT CATH - TIME SIGNAL WIRER NOTIFIED PEELING SKIN TO COCCYX NOTED - PICTURES OBTAINED, PREVALON SYSTEM AND BARRIER CREAM APPLIED RED, BLANCHABLE HEELS NOTED BATHED AND REPOSITIONED
[2022-04-23 04:54] LABS: Troponin-I High Sensitivity 76.4 ng/L (<3.5-17.0)
[2022-04-23 05:52] LABS: Folate 12.1 ng/mL (> or = 4.0); Vitamin B12 < 146 pg/mL (200-900)
[2022-04-23] MEDS: Pantoprazole Sodium 40 MG/10 ML VIAL IVPUSH (06:12)
[2022-04-23] MEDS: Levothyroxine Sodium 112 MCG TABLET PO (06:13)
[2022-04-23] MEDS: Morphine Sulfate 2 MG/ML CARTRIDGE 1 MG IVPUSH ×2 (07:38→09:38)
[2022-04-23] MEDS: Furosemide 20 MG/2 ML VIAL IVPUSH (07:39)
[2022-04-23] MEDS: Nitroglycerin 2 % Oint 1 GM Packet 0.5 INCH TRANSDERMA (07:40)
[2022-04-23] MEDS: Cholecalciferol (Vitamin D3) 25 MCG TABLET PO (08:01)
[2022-04-23] MEDS: Albumin Human 25 % 100 ML IV ×3 (09:43→19:46)
[2022-04-23] MEDS: levoFLOXacin/D5W 750 MG/150 ML PIGGYBACK 100 MG IV (10:35)
[2022-04-23] MEDS: Furosemide 200 MG in 0.9 % Sodium Chloride 80 ML IVCONT (10:56)
--- NOTE | 2022-04-23 11:12 | MHC.CLN ---
NURSING ADMISSION ASSESSMENT NOTED 24-33# WT LOSS PT REPORTED WT GAIN , ALTHOUGH NO AMOUNT SPECIFIED UNABLE TO GIVE DETAILS WHILE ON BIPAP MASK PREVIOUS WT HX REVEALS: 76KG (06/2020) PT WITH 2% NONSIGNIFICANT WT LOSS X 2 YEARS CONTINUE CURRENT CARE PLAN AT THIS TIME
--- NOTE | 2022-04-23 11:49 | P.PNCA_ITS ---
Subjective Subjective Date of Service: 04/23/22 Interval history: She developed hypoxia and shortness of breath overnight and was transferred to ICU for BiPAP. She is currently on BiPAP and is feeling better. She was given IV diuretics for heart failure. Physical Exam Vital Signs: Last Vital Signs Temp 99.7 F 04/23/22 11:00 Pulse 77 04/23/22 11:00 Resp 20 04/23/22 11:00 BP 112/32 L 04/23/22 11:00 Pulse Ox 94 04/23/22 11:00 O2 Del Method 04/23/22 11:00 O2 Flow Rate 3 04/23/22 11:00 FiO2 90 04/23/22 09:00 BMI result Body Mass Index 32.2 GENERAL APPEARANCE: in no acute distress, pleasant. NECK: no carotid bruit, elevated jugular venous distention. SKIN: no suspicious lesions, warm and dry. HEART: no murmurs, regular rate and rhythm. LUNGS: Bibasilar crackles. ABDOMEN: soft, nontender. EXTREMITIES: no edema. PERIPHERAL PULSES: equal. NEUROLOGIC: No gross deficits, AAO X 3 Objective Labs and Meds Result diagrams: 04/23/22 04:27 04/23/22 03:40 Lab results: Laboratory Results - last 24 hr 04/22/22 04/22/22 04/22/22 14:01 15:23 18:32 WBC RBC Hgb Hct MCV MCH MCHC RDW Plt Count MPV Immature Gran % (Auto) Neut % (Auto) Lymph % (Auto) [place] % (Auto) Eos % (Auto) Baso % (Auto) Lymph # (Auto) [place] # (Auto) Eos # (Auto) Baso # (Auto) Abs Immat Gran (auto) Absolute Neuts (auto) Absolute Nucleated RBC Nucleated RBC % (auto) Smear Tech's Comments VBG pH VBG pCO2 VBG pO2 VBG HCO3 VBG O2 Saturation VBG Base Excess Sodium Potassium Chloride Carbon Dioxide Anion Gap BUN Creatinine Estim Creat Clear Calc Estimated GFR POC Glucose Fasting Glucose Lactic Acid Calcium Iron 8 L TIBC 202 L % Saturation 4 L Unsat Iron Binding 194 Ferritin 256 H Total Bilirubin AST ALT Alkaline Phosphatase Lactate Dehydrogenase 250 H Troponin I High Sens B-Natriuretic Peptide Total Protein Albumin Vitamin B12 Folate Respiratory Panel Ponce Cancelled See Note Adenovirus (Rapid PCR) Cancelled Not Detected B.pert (TEM-PCR) Cancelled Not Detected B.parapertussis DNA PCR Cancelled Not Detected C. pneumoniae DNA (PCR) Cancelled Not Detected Coronavirus OC43 (PCR) Cancelled Not Detected Coronavirus HKU1 (PCR) Cancelled Not Detected Coronavirus 229E (PCR) Cancelled Not Detected Coronavirus NL63 (PCR) Cancelled Not Detected Human Metapneumovir PCR Cancelled Not Detected Influenza A (RT-PCR) Cancelled Not Detected Influenza B (RT-PCR) Cancelled Not Detected M. pneumoniae (PCR) Cancelled Not Detected Parainfluenza 1 (PCR) Cancelled Not Detected Parainfluenza 2 (PCR) Cancelled Not Detected Parainfluenza 3 (PCR) Cancelled Not Detected Parainfluenza 4 (PCR) Cancelled Not Detected RSV (PCR) Cancelled Not Detected Entero/Rhino (PCR) Cancelled Not Detected SARS-CoV-2 RNA (RT-PCR) Cancelled Not Detected 04/22/22 04/23/22 04/23/22 18:32 02:45 03:40 WBC RBC Hgb Hct MCV MCH MCHC RDW Plt Count MPV Immature Gran % (Auto) Neut % (Auto) Lymph % (Auto) [place] % (Auto) Eos % (Auto) Baso % (Auto) Lymph # (Auto) [place] # (Auto) Eos # (Auto) Baso # (Auto) Abs Immat Gran (auto) Absolute Neuts (auto) Absolute Nucleated RBC Nucleated RBC % (auto) Smear Tech's Comments VBG pH VBG pCO2 VBG pO2 VBG HCO3 VBG O2 Saturation VBG Base Excess Sodium 137 Potassium 3.6 Chloride 100 Carbon Dioxide 22 Anion Gap 19 BUN 34 H Creatinine 2.12 H Estim Creat Clear Calc 18.8 Estimated GFR 22 POC Glucose 120 H Fasting Glucose 140 H Lactic Acid Calcium 7.9 L Iron TIBC % Saturation Unsat Iron Binding Ferritin Total Bilirubin 0.4 AST 22 D ALT 15 Alkaline Phosphatase 80 D Lactate Dehydrogenase Troponin I High Sens B-Natriuretic Peptide Total Protein 5.3 L Albumin 2.9 L D Vitamin B12 < 146 L Folate 12.1 Respiratory Panel Ponce Adenovirus (Rapid PCR) B.pert (TEM-PCR) B.parapertussis DNA PCR C. pneumoniae DNA (PCR) Coronavirus OC43 (PCR) Coronavirus HKU1 (PCR) Coronavirus 229E (PCR) Coronavirus NL63 (PCR) Human Metapneumovir PCR Influenza A (RT-PCR) Influenza B (RT-PCR) M. pneumoniae (PCR) Parainfluenza 1 (PCR) Parainfluenza 2 (PCR) Parainfluenza 3 (PCR) Parainfluenza 4 (PCR) RSV (PCR) Entero/Rhino (PCR) SARS-CoV-2 RNA (RT-PCR) 04/23/22 04/23/22 04/23/22 03:40 03:44 04:27 WBC 17.6 H RBC 3.15 L Hgb 9.4 L Hct 29.8 L MCV 94.6 MCH 29.8 MCHC 31.5 RDW 15.9 Plt Count 203 MPV 10.3 Immature Gran % (Auto) 0.6 H Neut % (Auto) 92.5 H Lymph % (Auto) 4.1 L [place] % (Auto) 2.6 Eos % (Auto) 0.1 Baso % (Auto) 0.1 Lymph # (Auto) 0.7 L [place] # (Auto) 0.5 Eos # (Auto) 0.0 Baso # (Auto) 0.0 Abs Immat Gran (auto) 0.10 H Absolute Neuts (auto) 16.3 H Absolute Nucleated RBC 0.000 Nucleated RBC % (auto) 0.0 Smear Tech's Comments VERIFIED VBG pH 7.40 VBG pCO2 34 VBG pO2 61 VBG HCO3 21 L VBG O2 Saturation 86.0 VBG Base Excess -2.4 Sodium Potassium Chloride Carbon Dioxide Anion Gap BUN Creatinine Estim Creat Clear Calc Estimated GFR POC Glucose Fasting Glucose Lactic Acid Calcium Iron TIBC % Saturation Unsat Iron Binding Ferritin Total Bilirubin AST ALT Alkaline Phosphatase Lactate Dehydrogenase Troponin I High Sens B-Natriuretic Peptide 139 H Total Protein Albumin Vitamin B12 Folate Respiratory Panel Ponce Adenovirus (Rapid PCR) B.pert (TEM-PCR) B.parapertussis DNA PCR C. pneumoniae DNA (PCR) Coronavirus OC43 (PCR) Coronavirus HKU1 (PCR) Coronavirus 229E (PCR) Coronavirus NL63 (PCR) Human Metapneumovir PCR Influenza A (RT-PCR) Influenza B (RT-PCR) M. pneumoniae (PCR) Parainfluenza 1 (PCR) Parainfluenza 2 (PCR) Parainfluenza 3 (PCR) Parainfluenza 4 (PCR) RSV (PCR) Entero/Rhino (PCR) SARS-CoV-2 RNA (RT-PCR) 04/23/22 04/23/22 04:27 04:27 WBC RBC Hgb Hct MCV MCH MCHC RDW Plt Count MPV Immature Gran % (Auto) Neut % (Auto) Lymph % (Auto) [place] % (Auto) Eos % (Auto) Baso % (Auto) Lymph # (Auto) [place] # (Auto) Eos # (Auto) Baso # (Auto) Abs Immat Gran (auto) Absolute Neuts (auto) Absolute Nucleated RBC Nucleated RBC % (auto) Smear Tech's Comments VBG pH VBG pCO2 VBG pO2 VBG HCO3 VBG O2 Saturation VBG Base Excess Sodium Potassium Chloride Carbon Dioxide Anion Gap BUN Creatinine Estim Creat Clear Calc Estimated GFR POC Glucose Fasting Glucose Lactic Acid 1.8 Calcium Iron TIBC % Saturation Unsat Iron Binding Ferritin Total Bilirubin AST ALT Alkaline Phosphatase Lactate Dehydrogenase Troponin I High Sens 76.4 H* B-Natriuretic Peptide Total Protein Albumin Vitamin B12 Folate Respiratory Panel [place]once Adenovirus (Rapid PCR) B.pert (TEM-PCR) B.parapertussis DNA PCR C. pneumoniae DNA (PCR) Coronavirus OC43 (PCR) Coronavirus HKU1 (PCR) Coronavirus 229E (PCR) Coronavirus NL63 (PCR) Human Metapneumovir PCR Influenza A (RT-PCR) Influenza B (RT-PCR) M. pneumoniae (PCR) Parainfluenza 1 (PCR) Parainfluenza 2 (PCR) Parainfluenza 3 (PCR) Parainfluenza 4 (PCR) RSV (PCR) Entero/Rhino (PCR) SARS-CoV-2 RNA (RT-PCR) Imaging Radiologist's impression: Impressions Chest X-Ray 04/23/22 03:50 IMPRESSION: Diffuse mild bronchial wall thickening redemonstrated. Small layering bilateral pleural effusions. Progress Note: A&P Assessment and plan (1) Congestive heart failure: Status: Acute Plan Pleasant 81-year-old female with known history of coronary disease who presented with diverting colitis and was fluid resuscitated and developed congestive heart failure. Please start her on Lasix 40 mg IV b.i.d.. Aim for a negative balance close to 1.5 L. She has distended neck veins and crackles. She is asking whether she can get a break from BiPAP. I think she can get off and on BiPAP which will help her filling pressures and pulmonary congestion. Monitor potassium and magnesium along with BUN creatinine closely. We will follow along with you. Thank you for allowing me to participate in the care of your patient. Please feel free to contact me if you have any questions. Time Spent With Patient Time: Total time spent is greater than 50% in coordination of care (as documented) at patient's floor/unit and/or counseling patient: Progress Note: Quality Stroke Does the patient have a stroke diagnosis?: No Procedures Date of Service Date of Service: 04/23/22
--- NOTE | 2022-04-23 12:16 | PM.CCN ---
Critical Care Event Note Summary Date of Service: 04/23/22 Code activated: No Narrative: Briefly, 81-year-old lady with underlying congestive heart failure admitted with diverticulitis. Patient required brief BiPAP support for exacerbation of underlying congestive heart failure overnight and was transferred to intensive care unit. She was started on diuresis and titrated off BiPAP by this a.m.. Antibiotic coverage switched to levofloxacin and metronidazole. Critical Care Time (minutes): 0
[2022-04-23] MEDS: Morphine Sulfate 2 MG/ML CARTRIDGE IVPUSH (13:21)
--- NOTE | 2022-04-23 15:03 | PM.EVENT ---
Event Note Date of Service: 04/23/22 Event Note: hospitalist accept note hospital d#3 81yo F with CAD s/p PCI, LBBB, HTN, HLD, preDM, pancreatis cystic lesion s/p recent EUS presented with abd pain, found to have diverticulitis, Gm-neg bacteremia,? CHF exacerbation, atypical pneumonitis [place] [facility] to [place] overnight due to acute hypoxic respiratory failure requiring BiPAP stepped down to IMC today, on furosmiede gtt # Gm-negative bacteremia - follow BCx, on d#3 levofloxacin # diverticulitis - d#3 levofloxacin + metronidazole - clear liquid diet # CHF exacerbation [acute/chronic HFpEF] - IV furosemide infusion. Cardiology consulted. TTE yesterday showed: - Normal left ventricular size and systolic function. There is ? mildly increased left ventricular wall thickness.? The visually? estimated ejection fraction is between 60-65%.? There is no? ? ? evidence of regional wall motion ? - E/E prime ratio is >15, consistent with elevated filling ? ? ? pressures. ? - Normal right ventricular cavity size and systolic function.? ? - There is mild aortic valve stenosis. # question of atypical pneumonitis - trend PCT, continue levofloxacin, Legionella Ag pending # Tn-I elevation - per Cardiology likely demand/type 2 ischemia.? no heparin indicated.? add back ASA when question of GI bleed resolves. # FOBT+ stool - GI consulted.? ASA on hold.? monitor Hb.? IV PPI empirically. # vitamin B12 anemia - check anti-IF and antiparietal antibodies, then start parenteral B12 replacement # TOMA - prerenal/cardiorenal?? monitor closely with diuresis.? hold losartan # question of temporal arteritis - reportedly had negative biopsy and is on prednisone taper- continue. consider stress-dose hydrocortisone if develops kyree hypotension # HTN - holding amlodipine, losartan, and hyralazine for soft BP/TOMA # CAD # HLD - continue statin; holding ASA due to FOBT+ stool # hypothyroidism - continue LT4 # VTE ppx: SCDs
--- NOTE | 2022-04-23 15:04 | MHC.CM.PN ---
Pt transferred to ICU for increased WOB secondary to CHF and need for Bipap. Presently doing well on nasal cannula and will likely be able to transfer out of ICU later today. Original d/c plan was for home with family however, she may need VNA for skilled RN respiratory assessments; will follow progress for finalization of d/c plans
[2022-04-23] MEDS: ondansetron HCL 4 MG/2 ML VIAL IVPUSH (15:24)
--- NOTE | 2022-04-23 19:11 | PC.NURSE ---
Report given to HAMIDA Mariano assuming care of patient at this time.
[2022-04-23] MEDS: Atorvastatin Calcium 80 MG TABLET PO (19:58)
[2022-04-24] VITALS (12 sets, daily range): BP systolic 123–149; BP diastolic 52–66; PULSE 75–84; RESP 12–28; TEMP 35.9–37.7; O2SAT 79–98
[2022-04-24] MEDS: Albumin Human 25 % 100 ML IV (03:29)
[2022-04-24] MEDS: Pantoprazole Sodium 40 MG/10 ML VIAL IVPUSH (04:53)
[2022-04-24] MEDS: metroNIDAZOLE/NS 500 MG/100 ML PIGGYBACK 100 MG IV ×3 (04:53→21:40)
[2022-04-24] MEDS: Levothyroxine Sodium 112 MCG TABLET PO (06:05)
[2022-04-24 07:03] LABS: VBG Base Excess 0.5 mmol/L; VBG HCO3 24 mmol/L (22-26); VBG pCO2 35 mmHg; VBG pH 7.44 (7.32-7.43); VBG pO2 58 mmHg
[2022-04-24 07:03] LABS: Venous Blood Gas Refer to POC result
[2022-04-24 07:19] LABS: Albumin Level 3.7 g/dL (3.5-5.0); Blood Urea Nitrogen 42 mg/dL (9-16); Calcium 8.1 mg/dL (8.4-10.2); Creatinine Clr Calc Pharmacy 13.3; Estimated Glomerular Filt Rate 15; Glucose Random 95 mg/dL (60-115); Magnesium 1.7 mg/dL (1.6-2.6); Phosphorus 4.2 mg/dL (2.7-4.5)
[2022-04-24 07:34] LABS: Anion Gap 21 (12-20); Carbon Dioxide 21 mmol/L (22-29); Chloride 100 mmol/L (96-108); Potassium 2.9 mmol/L (3.3-5.1); Sodium 139 mmol/L (135-145)
[2022-04-24 07:47] LABS: Procalcitonin 92.88 ng/mL
[2022-04-24 08:26] LABS: Basophils Percent Auto 0.1 % (0-2); Eosinophils Percent Auto 0.3 % (0-4); Imm Gran Abs Auto 0.09 X10*3/uL (0.00-0.03); Imm Gran Pct Auto 0.8 % (0.0-0.4); Lymphocytes Absolute Auto 0.9 X10*3/uL (1.2-4.9); Lymphocytes Percent Auto 7.9 % (20-40); Mean Corpuscular HGB Conc 32.6 g/dl (31.0-35.0); Mean Corpuscular Volume 92.2 fL (80.0-98.0); Mean Platelet Volume 10.7 fL (9.4-12.3); Monocytes Absolute Auto 0.5 X10*3/uL (0.1-1.2); Monocytes Percent Auto 4.2 % (2-11); Neutrophils Absolute Auto 10.3 x10*3/uL (2.0-8.3); Neutrophils Percent Auto 86.7 % (45-73); Platelet Count 133 X10*3/uL (160-400); Red Blood Count 2.43 X10*6/uL (4.20-5.50); Red Cell Distribution Width 15.6 % (11.0-16.0); White Blood Count 11.8 X10*3/uL (4.8-10.8)
[2022-04-24 08:27] LABS: Hematocrit 22.4 % (37.0-47.0); Hemoglobin 7.3 g/dl (12.0-16.0)
[2022-04-24] MEDS: Cholecalciferol (Vitamin D3) 25 MCG TABLET PO (08:27)
[2022-04-24] MEDS: predniSONE 1 MG TABLET PO (08:27)
[2022-04-24] MEDS: Potassium Chloride ER 20 MEQ TAB.ER.PRT 40 MEQ PO (08:27)
[2022-04-24 08:38] LABS: MANUAL DIFF FLAG NO
[2022-04-24] MEDS: Potassium Chloride/H20 10 MEQ/100 ML PIGGYBACK 100 MEQ IV ×4 (08:42→12:53)
[2022-04-24] MEDS: Cyanocobalamin (Vitamin B-12) 1,000 MCG/ML VIAL 1000 MCG IM (08:52)
[2022-04-24] MEDS: 0.9 % Sodium Chloride Flush 3 ML SYRINGE IVFLUSH ×3 (10:00→21:40)
--- NOTE | 2022-04-24 10:49 | P.PNCA_ITS ---
Subjective Subjective Date of Service: 04/24/22 Interval history: Seen examined at bedside. She is saying her breathing has worsened this morning again. Noticed to be more anemic this morning. No obvious bleeding noted. Physical Exam Vital Signs: Last Vital Signs Temp 97.7 F 04/24/22 07:55 Pulse 79 04/24/22 07:55 Resp 22 H 04/24/22 07:55 BP 124/58 L 04/24/22 07:55 Pulse Ox 91 L 04/24/22 07:55 O2 Del Method 04/24/22 07:55 O2 Flow Rate 5 04/24/22 07:55 FiO2 90 04/23/22 09:00 BMI result Body Mass Index 32.2 GENERAL APPEARANCE: in no acute distress, pleasant. NECK: no carotid bruit, elevated jugular venous distention. SKIN: no suspicious lesions, warm and dry. HEART: no murmurs, regular rate and rhythm. LUNGS: Bibasilar crackles. ABDOMEN: soft, nontender. EXTREMITIES: no edema. PERIPHERAL PULSES: equal. NEUROLOGIC: No gross deficits, AAO X 3 Objective Labs and Meds Result diagrams: 04/24/22 08:07 04/24/22 06:48 Lab results: Laboratory Results - last 24 hr 04/21/22 04/24/22 04/24/22 21:54 06:48 06:48 WBC RBC Hgb Hct MCV MCH MCHC RDW Plt Count MPV Immature Gran % (Auto) Neut % (Auto) Lymph % (Auto) [place] % (Auto) Eos % (Auto) Baso % (Auto) Lymph # (Auto) [place] # (Auto) Eos # (Auto) Baso # (Auto) Abs Immat Gran (auto) Absolute Neuts (auto) Absolute Nucleated RBC Nucleated RBC % (auto) VBG pH VBG pCO2 VBG pO2 VBG HCO3 VBG O2 Saturation VBG Base Excess Sodium 139 Potassium 2.9 L Chloride 100 Carbon Dioxide 21 L Anion Gap 21 H BUN 42 H Creatinine 2.98 H Estim Creat Clear Calc 13.3 Estimated GFR 15 Random Glucose 95 Calcium 8.1 L Phosphorus 4.2 Magnesium 1.7 Albumin 3.7 D Procalcitonin 92.88 Blood Type A Positive Antibody Screen NEGATIVE Crossmatch See Detail 04/24/22 04/24/22 06:53 08:07 WBC 11.8 H RBC 2.43 L D Hgb 7.3 L D Hct 22.4 L D MCV 92.2 MCH 30.0 MCHC 32.6 RDW 15.6 Plt Count 133 L D MPV 10.7 Immature Gran % (Auto) 0.8 H Neut % (Auto) 86.7 H Lymph % (Auto) 7.9 L [place] % (Auto) 4.2 Eos % (Auto) 0.3 Baso % (Auto) 0.1 Lymph # (Auto) 0.9 L [place] # (Auto) 0.5 Eos # (Auto) 0.0 Baso # (Auto) 0.0 Abs Immat Gran (auto) 0.09 H Absolute Neuts (auto) 10.3 H Absolute Nucleated RBC 0.000 Nucleated RBC % (auto) 0.0 VBG pH 7.44 H VBG pCO2 35 VBG pO2 58 VBG HCO3 24 VBG O2 Saturation 86.0 VBG Base Excess 0.5 Sodium Potassium Chloride Carbon Dioxide Anion Gap BUN Creatinine Estim Creat Clear Calc Estimated GFR Random Glucose Calcium Phosphorus Magnesium Albumin Procalcitonin Blood Type Antibody Screen Crossmatch Progress Note: A&P Assessment and plan (1) Congestive heart failure: Status: Acute Plan Pleasant 81-year-old female who has known history of coronary disease with previous LAD PCI presented with diverticulitis and developed congestive heart failure after volume resuscitation. She was on BiPAP in the ICU yesterday. She continues to be volume overloaded. Her creatinine has worsened since she came to the hospital. She is not in a negative balance currently. She did not receive any contrast. One consideration can be septic ATN but she was not significantly hypotensive as. I think currently she does look overloaded. She is also anemic. I think with continued diuretics and try to achieve a negative balance on her. She will need some blood given to her and she should get a bolus of 40 mg Lasix. She was started on noninvasive ventilation to support her breathing. She should stay off and on the CPAP depending on her spit his status and definite should sleep with it. Thank you for allowing me to participate in the care of your patient. Please feel free to contact me if you have any questions. Time Spent With Patient Time: Total time spent is greater than 50% in coordination of care (as documented) at patient's floor/unit and/or counseling patient: Progress Note: Quality Stroke Does the patient have a stroke diagnosis?: No Procedures Date of Service Date of Service: 04/24/22
[2022-04-24] MEDS: Furosemide 40 MG/4 ML VIAL IVPUSH (11:38)
[2022-04-24 11:56] LABS: HBS Num1 2.69 mIU/mL (0-7.99); HBc Num1 0.07 S/CO (0.00-0.79); HBsAGNum1 0.23 S/CO (0.00-0.99); Hepatitis B Core Antibody Nonreactive (Nonreactive); Hepatitis B Surface Antigen Negative (Negative); ~HepC Num1 0.03 S/CO (0.00-0.79); ~Hepatitis B Surface Antibody NONREACTIVE (Nonreactive); ~Hepatitis C Antibody Nonreactive (Nonreactive)
--- NOTE | 2022-04-24 11:58 | MHC.CDI.CONC ---
CDI Concurrent Query Documentation Clarification: PHYSICIAN'S DOCUMENTATION REQUEST Date of Query: 04/24/22 1158 Patient Name: Keturah Howard Admit Date: 04/21/22 Dear Doctor, A review of the medical record indicates additional documentation may be needed. Please review below and update the documentation accordingly. Clinical Indicators Risk Factors/Clinical Indicators/Treatments Labs 04/23 - albumin 2.9 L IV Albumin Human Based on the above, could you clarify in the Progress Notes the appropriate diagnosis, if significant, that supports the above abnormalities and additional evaluation, monitoring, and/or treatment rendered: Hypoalbuminemia or other etiology of lab findings Labs indicate a diagnosis of (please specify) Other (please specify) Unable to determine Use of terms such as suspected, likely, concern for, or probable (associated with a specific diagnosis that is being evaluated, monitored, or treated as if it exists) are acceptable and can be coded in the inpatient setting, when documented at the time of discharge. Thank you, Sonia Blake [facility], [facility] Extension: [phone] Please use your independent medical judgment in providing your response. THIS QUERY IS PART OF THE PERMANENT MEDICAL RECORD Provider Response: Other Other Diagnosis: unable to determine
--- NOTE | 2022-04-24 14:37 | HO.PM.IMPN ---
Subjective Subjective Date of Service: 04/24/22 Interval History: [place] [facility] [place] CP[place] overnight short of breath this AM; no chest pain more anemic; no kyree GI bleeding Review of Systems Review of Systems: Yes all other systems are reviewed and are negative Physical Exam Vital Signs: Vital Signs: Last Vital Signs Temp 99.6 F 04/24/22 13:25 Pulse 83 04/24/22 13:25 Resp 12 04/24/22 13:25 BP 135/63 04/24/22 13:25 Pulse Ox 97 04/24/22 12:00 O2 Del Method 04/24/22 12:00 O2 Flow Rate 50 04/24/22 12:00 FiO2 90 04/23/22 09:00 BMI result Body Mass Index 32.2 Gen: mod resp distress HEENT: sclera anicteric, moist mucus membranes Neck: supple, JVD present Lungs: bilateral inspitory crackles Heart: regular rate and rhythm, no murmurs Abd: soft, non-tender, non-distended Ext: no edema Skin: warm/well-perfused Neuro: alert and oriented x3, no focal findings Psych: appropriate affect Objective Data Active Medications Acetaminophen (Acetaminophen 325 Mg Tablet) 650 mg PO Q6H PRN PRN Reason: Pain, Mild (Pain Scale 1-3) Albuterol/Ipratropium (Albuterol/Iprat 2.5/0.5mg 3 Ml Ampul.Neb) 3 ml INHALE RQ4H PRN PRN Reason: Shortness of Breath/Wheezing Last Admin: 04/23/22 02:44 Dose: 3 ml Documented By: OJ Atorvastatin Calcium (Atorvastatin Calcium 80 Mg Tablet) 80 mg PO DAILY@2100 AGATA Last Admin: 04/23/22 19:58 Dose: 80 mg Documented By: FOSMATI Cyanocobalamin (Cyanocobalamin (Vitamin B-12) 1,000 Mcg/Ml Vial) 1,000 mcg IM DAILY [facility] Stop: 04/30/22 09:01 Last Admin: 04/24/22 08:52 Dose: 1,000 mcg Documented By: OLGA Metronidazole (Flagyl) 500 mg in 100 mls @ 100 mls/hr IV Q8H [facility] Last Infusion: 04/24/22 06:10 Dose: 100 mls/hr Documented By: ABDI Levofloxacin (Levaquin) 500 mg in 100 mls @ 100 mls/hr IV Q48H [facility] Furosemide 200 mg/ Sodium (Chloride) 100 mls @ 1.5 mls/hr IVCONT .Q24H [facility] Last Infusion: 04/23/22 17:10 Dose: 2.5 mg/hr, 1.25 mls/hr Documented By: ELISA Levothyroxine Sodium (Levothyroxine Sodium 112 Mcg Tablet) 112 mcg PO 0600 [facility] Last Admin: 04/24/22 06:05 Dose: 112 mcg Documented By: ABDI Melatonin (Melatonin 3 Mg Tablet) 6 mg PO BEDTIME PRN PRN Reason: Insomnia Morphine Sulfate (Morphine Sulfate 2 Mg/Ml Cartridge) 2 mg IVPUSH Q3H PRN; Protocol PRN Reason: Breakthrough Pain Last Admin: 04/23/22 13:21 Dose: 2 mg Documented By: SHAGUFTA Ondansetron HCl (Ondansetron Hcl 4 Mg/2 Ml Vial) 4 mg IVPUSH Q6H PRN PRN Reason: Nausea Last Admin: 04/23/22 15:24 Dose: 4 mg Documented By: SHAGUFTA Pantoprazole Sodium (Pantoprazole Sodium 40 Mg/10 Ml Vial) 40 mg IVPUSH DAILY@0630 [facility] Last Admin: 04/24/22 04:53 Dose: 40 mg Documented By: BILLY Pharmacy Consult (Consult Rx Perform Med Rec) 1 each MISCELLANE ONCE PRN PRN Reason: Consult order Polyethylene Glycol (Polyethylene Glycol 3350 17 Gm Powd.Pack) 17 gm PO BEDTIME [facility] Last Admin: 04/23/22 23:00 Dose: Not Given Documented By: BILLY Non-Admin Reason: Patient Refused Prednisone (Prednisone 1 Mg Tablet) 1 mg PO DAILY [facility] Last Admin: 04/24/22 08:27 Dose: 1 mg Documented By: OLGA Senna (Sennosides 8.6 Mg Tablet) 17.2 mg PO BEDTIME PRN PRN Reason: Constipation Sodium Chloride (0.9 % Sodium Chloride Flush 3 Ml Syringe) 3 ml IVFLUSH QSHIFT [facility] Last Admin: 04/24/22 10:00 Dose: 3 ml Documented By: OLGA Vitamin D (Cholecalciferol (Vitamin D3) 25 Mcg Tablet) 25 mcg PO DAILY [facility] Last Admin: 04/24/22 08:27 Dose: 25 mcg Documented By: OLGA Labs CBC & Chem 7: 04/24/22 08:07 04/24/22 06:48 Labs: Laboratory Results - last 24 hr 04/21/22 04/24/22 04/24/22 21:54 06:48 06:48 MCV MCH MCHC RDW Plt Count MPV Immature Gran % (Auto) Neut % (Auto) Lymph % (Auto) Haskell % (Auto) Eos % (Auto) Baso % (Auto) Lymph # (Auto) Haskell # (Auto) Eos # (Auto) Baso # (Auto) Abs Immat Gran (auto) Absolute Neuts (auto) Absolute Nucleated RBC Nucleated RBC % (auto) VBG pH VBG pCO2 VBG pO2 VBG HCO3 VBG O2 Saturation VBG Base Excess Anion Gap 21 H Estim Creat Clear Calc 13.3 Estimated GFR 15 Random Glucose 95 Calcium 8.1 L Phosphorus 4.2 Magnesium 1.7 Albumin 3.7 D Procalcitonin 92.88 Hep Bs Antigen Hep Bs Antibody Hep B Core Total Ab Hepatitis C Ab (EIA) Blood Type A Positive Antibody Screen NEGATIVE Crossmatch See Detail 04/24/22 04/24/22 04/24/22 06:53 08:07 11:08 MCV 92.2 MCH 30.0 MCHC 32.6 RDW 15.6 Plt Count 133 L D MPV 10.7 Immature Gran % (Auto) 0.8 H Neut % (Auto) 86.7 H Lymph % (Auto) 7.9 L Haskell % (Auto) 4.2 Eos % (Auto) 0.3 Baso % (Auto) 0.1 Lymph # (Auto) 0.9 L Haskell # (Auto) 0.5 Eos # (Auto) 0.0 Baso # (Auto) 0.0 Abs Immat Gran (auto) 0.09 H Absolute Neuts (auto) 10.3 H Absolute Nucleated RBC 0.000 Nucleated RBC % (auto) 0.0 VBG pH 7.44 H VBG pCO2 35 VBG pO2 58 VBG HCO3 24 VBG O2 Saturation 86.0 VBG Base Excess 0.5 Anion Gap Estim Creat Clear Calc Estimated GFR Random Glucose Calcium Phosphorus Magnesium Albumin Procalcitonin Hep Bs Antigen Negative Hep Bs Antibody NONREACTIVE Hep B Core Total Ab Nonreactive Hepatitis C Ab (EIA) Nonreactive Blood Type Antibody Screen Crossmatch Microbiology Microbiology Results: Microbiology 04/21/22 21:53 Blood Culture - Preliminary Blood - Venous Escherichia coli Gram negative edwardo 04/21/22 21:53 Blood Culture - Preliminary Blood - Venous Escherichia coli Gram negative edwardo Assessment and Plan (1) Acute respiratory failure with hypoxia: Status: Acute Plan hospital d#4 81yo F with CAD s/p PCI, LBBB, HTN, HLD, preDM, pancreatis cystic lesion s/p recent EUS presented with abd pain, found to have diverticulitis, Gm-neg bacteremia,? CHF exacerbation, atypical pneumonitis [place] [facility] [place] to [place] 04/22/22 due due to acute hypoxic respiratory failure requiring BiPAP [place] [facility] [place]/22 on furosemide drip # Gm-negative bacteremia: resendez-sensitive E coli plus a 2nd GNR - follow BCx, on d#3 levofloxacin # acute diverticulitis - d#3 levofloxacin + metronidazole - clear liquid diet # anemia - will transfuse 1u pRBCs slowly after furosemide bolus # TOMA - cardiorenal? septic ATN? hold losartan + avoid nephrotoxins. consulting Nephrology # CHF exacerbation [acute/chronic HFpEF] - IV furosemide infusion.? Cardiology consulted.? TTE 04/22/22 showed: - Normal left ventricular size and systolic function. There is ? mildly increased left ventricular wall thickness.? The visually? estimated ejection fraction is between 60-65%.? There is no? ? ? evidence of regional wall motion ? - E/E prime ratio is >15, consistent with elevated filling ? ? ? pressures. ? - Normal right ventricular cavity size and systolic function.? ? - There is mild aortic valve stenosis. # question of atypical pneumonitis - trend PCT, continue levofloxacin, Legionella Ag pending # Tn-I elevation - per Cardiology likely demand/type 2 ischemia.? no heparin indicated.? add back ASA when question of GI bleed resolves. # FOBT+ stool - GI consulted.? ASA on hold.? monitor Hb.? IV PPI empirically. # vitamin B12 anemia - anti-IF and antiparietal antibodies pending; on parenteral B12 replacement # question of temporal arteritis - reportedly had negative biopsy and is on prednisone taper- continue.? consider stress-dose hydrocortisone if develops kyree hypotension # HTN - holding amlodipine, losartan, and hyralazine for soft BP/TOMA # CAD # HLD - continue statin; holding ASA due to FOBT+ stool # hypothyroidism - continue LT4 # VTE ppx: SCDs Quality Stroke Does the patient have a stroke diagnosis?: No VTE Prior VTE?: No VTE Risk Level:: Medical - moderate - high VTE Device Contraindication: N/A - Device Ordered VTE Drug Contraindication: Treatment Not Indicated
[2022-04-24 18:18] LABS: Hematocrit 27.8 % (37.0-47.0); Hemoglobin 9.4 g/dl (12.0-16.0)
[2022-04-24 18:37] LABS: Total Protein Urine Random 21 mg/dL (<12)
[2022-04-24 18:38] LABS: Anion Gap 21 (12-20); Blood Urea Nitrogen 41 mg/dL (9-16); Calcium 8.1 mg/dL (8.4-10.2); Carbon Dioxide 21 mmol/L (22-29); Chloride 100 mmol/L (96-108); Creatinine Clr Calc Pharmacy 12.8; Estimated Glomerular Filt Rate 14; Glucose Random 126 mg/dL (60-115); Potassium 3.6 mmol/L (3.3-5.1); Sodium 138 mmol/L (135-145)
--- NOTE | 2022-04-24 19:19 | PC.NURSE ---
At 10:40 Pt satting at 79 on 5L NC. MD notify and at the bedside. Pt placed on Bipap by respiratory therapist per MD orders pt satting at 98% while on Bipap. 40mg Laxis Iv push Administered and Iv drip increased to 3mg/hr. At 13:00 pt Bipap removed pt placed back on 5L NC 02 sat 98%. 1unit RBC order and given.
--- NOTE | 2022-04-24 21:33 | CONS_ITS ---
DATE OF SERVICE: 04/24/2022 REASON FOR CONSULTATION: I was asked to see patient to assist in evaluation and management of patient's acute kidney injury as reflected by a creatinine of 2.98 today, whereas her baseline creatinine seems to be in the 1.0 to perhaps 1.5 range. On admission, her creatinine was 1.49, now its gone up to 2.98. I do see on the computer, her creatinine back in 2019 was as high as 1.36. HISTORY OF PRESENT ILLNESS: In summary, the patient is an 81-year-old with multiple chronic medical problems, who was admitted on the with abdominal pain consistent with diverticulitis. She is getting IV antibiotics and some IV fluids initially because of soft blood pressure. She was actually evaluated by the ICU on admission but deemed not need to be in the ICU and so she has been on the floor. Her past medical history as mentioned, includes hypertension, hyperlipidemia, coronary artery disease with stent in the past. She has had a history of a pancreatic cystic lesion, heart failure, and COPD and tells me she had significant right eye vision loss, was started on steroids, had a biopsy of the superficial temporal artery that she says was negative, but she has been continued on steroids and this was done in February. This morning, patient states she is feeling a bit short of breath and she has been given some diuretics. She denies any chest pain, fevers, sweats, or chills. Her abdominal pain has lessened. She has a Corral catheter in place and is making urine. PAST MEDICAL HISTORY: As mentioned above. Patient states she saw Dr. Hernandes, my partner at [facility] for her chronic kidney disease. We will try and track down those records. She states that he stated it was relatively mild. MEDICATIONS: On admission include Norvasc, aspirin, Synthroid, Crestor, hydralazine, losartan, Prilosec, and prednisone. Current medications include Flagyl, Levaquin. She is on a Lasix drip and getting potassium supplementation. ALLERGIES: SHE HAS ALLERGIES TO DOXYCYCLINE. SOCIAL HISTORY: She is an ex-smoker, quit in 2010. No alcohol or illicit drug use, or NSAID use. FAMILY HISTORY: Noncontributory. REVIEW OF SYSTEMS: As noted above. PHYSICAL EXAMINATION: VITAL SIGNS: Blood pressure 124/60 with heart rate in the 80s. She is on 5 L of oxygen with saturations of 90%. HEENT: Head atraumatic and normocephalic. Mucous membranes are moist. Unable to assess for JVD. She has short round neck. I's and O's from the computer states she only had 700 cc of urine output overnight, although looks like there is over 500 in urinal. LUNGS: Decreased breath sounds at the bases along with some rhonchi. CARDIAC: Regular rate and rhythm. ABDOMEN: Soft. EXTREMITIES: Show 1+ edema. DIAGNOSTIC DATA: Chest x-ray from yesterday showed some small layering bilateral of pleural effusions. She had a CAT scan of the abdomen and pelvis without contrast on admission, which showed no hydronephrosis and a simple 4.6 cyst in left kidney. Labs today show hemoglobin 7.3, hematocrit 22.4, white blood count 11.8, platelet count 133. On admission, hemoglobin was 9.5. Sodium 139, potassium 2.9, chloride 100, bicarb 21, BUN 42, creatinine 2.98, calcium 8.1, phosphorus 4.2, serum albumin 3.7. As mentioned, creatinine on admission was 1.49 and has increased over the past 2 days. She had urine studies when she came in, which showed 3+ protein by dipstick and some white cells noted. IMPRESSION: An 81-year-old admitted with sepsis, presumed diverticulitis, complicated by acute kidney injury on chronic kidney disease and worsening respiratory status. 1. Acute kidney injury. Most likely this is sepsis associated acute tubular necrosis. Sepsis can be associated with tubular injury due to sciatica and inflammatory injury to the tubules. Other concerns would include renal hypoperfusion and in particular whether she has a component of cardiorenal syndrome. Other possibilities such as acute interstitial nephritis or acute glomerulonephritis seem unlikely. Infectious associated glomerulonephritis would be in the differential as would acute interstitial nephritis associated with infection, but again both seem less likely. 2. Stage 3 chronic kidney disease. Baseline creatinine in the 1-1.5 range. 3. Sepsis. Hemodynamically stable presently. She is getting antibiotics. 4. Hypoxia and increasing O2 requirements. She says she has a history of chronic obstructive pulmonary disease. Concern for a congestive heart failure also needs to be evaluated. She has been seen by Cardiology. She had a cardiac echo, which showed preserved EF suggesting that she has heart failure with preserved EF. It is unlikely that she has a pulmonary renal syndrome, but nonetheless, we will order some additional serologies just to make sure we are not missing something. 1. 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 She came in on steroids. She may need stress dose steroids given the stressors that she is under. We will leave this decision up to the hospitalist's team. SUGGESTIONS: At this time include repeat urinalysis and urine studies to calculate fractional excretion of sodium and fractional excretion of urea as well as evaluate degree of proteinuria. Avoid nephrotoxins. Monitor urine output and renal function. Continue diuretics as needed to optimize respiratory status. Ask Cardiology to evaluate the patient regarding diuretic management in the setting of a question of heart failure. She may need pulmonary evaluation given her high O2 requirements and a question whether this is COPD versus CHF. There is no indication at this time for dialysis and hopefully we can avoid dialysis. As mentioned, we will order serologies and urine studies and follow the patient closely with the team. MD SHADIA Ibarra/LATRELL / [id number]
[2022-04-24] MEDS: Atorvastatin Calcium 80 MG TABLET PO (21:39)
[2022-04-24] MEDS: Furosemide 200 MG in 0.9 % Sodium Chloride 80 ML IVCONT (21:40)
[2022-04-24] MEDS: polyethylene glycoL 3350 17 GM POWD.PACK PO (21:40)
[2022-04-24 21:54] LABS: Creatinine Urine 20.49 mg/dL
[2022-04-25] VITALS (7 sets, daily range): BP systolic 134–158; BP diastolic 57–65; PULSE 68–78; RESP 18–20; TEMP 36.4–37.1; O2SAT 94–97; BMI 32.2
[2022-04-25] MEDS: Levothyroxine Sodium 112 MCG TABLET PO (05:36)
[2022-04-25] MEDS: Pantoprazole Sodium 40 MG/10 ML VIAL IVPUSH (05:36)
[2022-04-25] MEDS: metroNIDAZOLE/NS 500 MG/100 ML PIGGYBACK 100 MG IV ×3 (05:36→21:45)
[2022-04-25 06:51] LABS: Hemoglobin 9.3 g/dl (12.0-16.0); Mean Corpuscular HGB Conc 33.2 g/dl (31.0-35.0); Mean Corpuscular Hemoglobin 30.5 pg (27.0-33.0); Mean Corpuscular Volume 91.8 fL (80.0-98.0); Mean Platelet Volume 11.3 fL (9.4-12.3); Platelet Count 155 X10*3/uL (160-400); Red Blood Count 3.05 X10*6/uL (4.20-5.50)
[2022-04-25 07:04] LABS: B Type Natriuretic Peptide 132 pg/mL (<100)
[2022-04-25 07:08] LABS: Anion Gap 18 (12-20); Blood Urea Nitrogen 45 mg/dL (9-16); Calcium 8.4 mg/dL (8.4-10.2); Carbon Dioxide 25 mmol/L (22-29); Chloride 99 mmol/L (96-108); Creatinine Clr Calc Pharmacy 12.2; Estimated Glomerular Filt Rate 14; Glucose Random 96 mg/dL (60-115); Magnesium 1.7 mg/dL (1.6-2.6); Potassium 3.1 mmol/L (3.3-5.1); Sodium 139 mmol/L (135-145)
--- NOTE | 2022-04-25 08:16 | P.CDIC_ITS ---
CDI Concurrent Query Documentation Clarification: PHYSICIAN'S DOCUMENTATION REQUEST Date of Query: 04/25/22 0816 Patient Name: Keturah Howard Admit Date: 04/21/22 Dear Doctor, A review of the medical record indicates additional documentation may be indicated. Please review below and update the documentation accordingly. Clinical Indicators: Risk Factors/Clinical Indicators/Treatments Wound care notes 04/24 - Pressure injury Stage II coccyx Barrier cream Based on the above, could you please provide, in the Progress Notes, further information regarding the ulcer/wound: * For a non-pressure ulcer, please indicate the depth/severity: * Limited to the breakdown of skin * With fat layer exposed * With necrosis of muscle * With necrosis of bone * Other * Unable to determine * If a pressure ulcer, please also include the stage* of the ulcer: * Stage 1 - Skin intact, non-blanchable redness * Stage 2 - Partial thickness loss of dermis, includes intact or open blister * Stage 3 - Full thickness tissue not including bone, tendon, or muscle * Other * Unable to determine *Source: National Pressure Ulcer Advisory Panel (NPUAP) Use of terms such as suspected, likely, concern for, or probable (associated with a specific diagnosis that is being evaluated, monitored, or treated as if it exists) are acceptable and can be coded in the inpatient setting, when documented at the time of discharge. Thank you, Sonia Blake [facility], CDIS Extension: [phone] Please use your independent medical judgment in providing your response. THIS QUERY IS PART OF THE PERMANENT MEDICAL RECORD Provider Response: Other Other Diagnosis: Pressure injury Stage II coccyx
--- NOTE | 2022-04-25 08:16 | MHC.CDI.CONC ---
CDI Concurrent Query Documentation Clarification: PHYSICIAN'S DOCUMENTATION REQUEST Date of Query: 04/25/22 0816 Patient Name: Keturah Howard Admit Date: 04/21/22 Dear Doctor, A review of the medical record indicates additional documentation may be indicated. Please review below and update the documentation accordingly. Clinical Indicators: Risk Factors/Clinical Indicators/Treatments Wound care notes 04/24 - Pressure injury Stage II coccyx Barrier cream Based on the above, could you please provide, in the Progress Notes, further information regarding the ulcer/wound: For a non-pressure ulcer, please indicate the depth/severity: Limited to the breakdown of skin With fat layer exposed With necrosis of muscle With necrosis of bone Other Unable to determine If a pressure ulcer, please also include the stage* of the ulcer: Stage 1 - Skin intact, non-blanchable redness Stage 2 - Partial thickness loss of dermis, includes intact or open blister Stage 3 - Full thickness tissue not including bone, tendon, or muscle Other Unable to determine *Source: National Pressure Ulcer Advisory Panel (NPUAP) Use of terms such as suspected, likely, concern for, or probable (associated with a specific diagnosis that is being evaluated, monitored, or treated as if it exists) are acceptable and can be coded in the inpatient setting, when documented at the time of discharge. Thank you, Sonia Blake [facility], CDIS Extension: [phone] Please use your independent medical judgment in providing your response. THIS QUERY IS PART OF THE PERMANENT MEDICAL RECORD Provider Response: Other Other Diagnosis: Pressure injury Stage II coccyx
[2022-04-25] MEDS: Cholecalciferol (Vitamin D3) 25 MCG TABLET PO (10:03)
[2022-04-25] MEDS: Cyanocobalamin (Vitamin B-12) 1,000 MCG/ML VIAL 1000 MCG IM (10:05)
[2022-04-25] MEDS: levoFLOXacin/D5W 500 MG/100 ML PIGGYBACK 100 MG IV (10:05)
[2022-04-25] MEDS: 0.9 % Sodium Chloride Flush 3 ML SYRINGE IVFLUSH ×2 (10:07→21:56)
[2022-04-25] MEDS: Potassium Chloride/H20 10 MEQ/100 ML PIGGYBACK 100 MEQ IV ×2 (10:07→11:49)
[2022-04-25 10:47] LABS: EOS Counted 1 CELLS; EOS QC POS YES; EOS Stain Quality OK YES; WBC, Counted 100 CELLS
[2022-04-25 11:33] LABS: Complement C3 88 mg/dL
--- NOTE | 2022-04-25 12:20 | MHC.CLN ---
RE: CONSULT PT WITH INCREASED NUTRITION RISK R/T PRESSURE INJURY DIET ADVANCED TO 2GM NA RECOMMEND ADDING ENSURE MAX BID TO INCREASE PO PROTEIN AND PROMOTE WOUND HEALING SUPP TO PROVIDE 300KCALS, 60G PROTEIN MONITOR PO INTAKE CLOSELY SEE ALSO FULL CLINICAL NUTRITION ASSESSMENT
--- NOTE | 2022-04-25 12:43 | PM.PNCARD ---
Subjective Subjective Date of Service: 04/25/22 Interval history: Patient seen examined at bedside. She is saying her breathing is better today. She is in negative balance for the 1st time. Creatinine has worsened further today. He is on Lasix drip. She also received 40 mg of Lasix bolus with blood transfusion. Physical Exam Vital Signs: Last Vital Signs Temp 98.5 F 04/25/22 11:11 Pulse 75 04/25/22 11:11 Resp 20 04/25/22 11:11 BP 158/64 H 04/25/22 11:11 Pulse Ox 97 04/25/22 11:11 O2 Del Method 04/25/22 11:11 O2 Flow Rate 5 04/25/22 11:11 FiO2 90 04/23/22 09:00 BMI result Body Mass Index 32.2 GENERAL APPEARANCE: in no acute distress, pleasant. NECK: no carotid bruit, elevated jugular venous distention. SKIN: no suspicious lesions, warm and dry. HEART: no murmurs, regular rate and rhythm. LUNGS: No significant crackles. Diminished at bases. ABDOMEN: soft, nontender. EXTREMITIES: no edema. PERIPHERAL PULSES: equal. NEUROLOGIC: No gross deficits, AAO X 3 Objective Labs and Meds Result diagrams: 04/25/22 06:10 04/25/22 06:10 Lab results: Laboratory Results - last 24 hr 04/21/22 04/24/22 04/24/22 21:54 11:08 18:04 WBC RBC Hgb 9.4 L D Hct 27.8 L D MCV MCH MCHC RDW Plt Count MPV Absolute Nucleated RBC Nucleated RBC % (auto) Sodium Potassium Chloride Carbon Dioxide Anion Gap BUN Creatinine Estim Creat Clear Calc Estimated GFR Random Glucose Calcium Magnesium B-Natriuretic Peptide Urine Eosinophils % U Random Total Protein Ur Random Sodium Urine Creatinine Complement C3 88 Complement C4 22 Blood Type A Positive Antibody Screen NEGATIVE Crossmatch See Detail 04/24/22 04/24/22 04/24/22 18:04 18:06 18:06 WBC RBC Hgb Hct MCV MCH MCHC RDW Plt Count MPV Absolute Nucleated RBC Nucleated RBC % (auto) Sodium 138 Potassium 3.6 D Chloride 100 Carbon Dioxide 21 L Anion Gap 21 H BUN 41 H Creatinine 3.10 H Estim Creat Clear Calc 12.8 Estimated GFR 14 Random Glucose 126 H Calcium 8.1 L Magnesium B-Natriuretic Peptide Urine Eosinophils % 1.0 U Random Total Protein 21 H Ur Random Sodium Urine Creatinine Complement C3 Complement C4 Blood Type Antibody Screen Crossmatch 04/24/22 04/25/22 04/25/22 21:30 06:10 06:10 WBC 13.0 H RBC 3.05 L D Hgb 9.3 L Hct 28.0 L MCV 91.8 MCH 30.5 MCHC 33.2 RDW 15.0 Plt Count 155 L MPV 11.3 Absolute Nucleated RBC 0.000 Nucleated RBC % (auto) 0.0 Sodium 139 Potassium 3.1 L Chloride 99 Carbon Dioxide 25 Anion Gap 18 BUN 45 H Creatinine 3.27 H Estim Creat Clear Calc 12.2 Estimated GFR 14 Random Glucose 96 Calcium 8.4 Magnesium 1.7 B-Natriuretic Peptide Urine Eosinophils % U Random Total Protein Ur Random Sodium 102.0 Urine Creatinine 20.49 Complement C3 Complement C4 Blood Type Antibody Screen Crossmatch 04/25/22 06:10 WBC RBC Hgb Hct MCV MCH MCHC RDW Plt Count MPV Absolute Nucleated RBC Nucleated RBC % (auto) Sodium Potassium Chloride Carbon Dioxide Anion Gap BUN Creatinine Estim Creat Clear Calc Estimated GFR Random Glucose Calcium Magnesium B-Natriuretic Peptide 132 H Urine Eosinophils % U Random Total Protein Ur Random Sodium Urine Creatinine Complement C3 Complement C4 Blood Type Antibody Screen Crossmatch Progress Note: A&P Assessment and plan (1) Congestive heart failure: Status: Acute (2) TOMA (acute kidney injury): Status: Acute (3) Diverticulitis: Status: Acute Plan 81-year-old female who is presenting with diverticulitis and developed decompensated congestive heart failure. She was on BiPAP in the ICU. Yesterday her creatinine worsened and her breathing also worsened at the same time. She was noted to be anemic too. She was given 1 unit of blood with 40 mg IV Lasix. She is in a negative balance today with improvement in breathing and lung examination but her creatinine has worsened further. Nephrology is following her and there was some concern about acute tubular necrosis. By my exam she still appears volume overloaded and she has also improved clinically with diuresis. I think we should repeat her labs again in the afternoon to see if the creatinine is not worsening further. If in fact creatinine is worsening I would be careful and hold diuretics and use them more cautiously. Continue antibiotics for infection. Her aspirin is on hold due to anemia right she has known history of coronary disease with previous LAD PCI. I think if her hemoglobin stays stable and there is no obvious source of bleeding then baby aspirin should be resumed. Thank you for allowing me to participate in the care of your patient. Please feel free to contact me if you have any questions. Time Spent With Patient Time: Total time spent is greater than 50% in coordination of care (as documented) at patient's floor/unit and/or counseling patient: Progress Note: Quality Stroke Does the patient have a stroke diagnosis?: No Procedures Date of Service Date of Service: 04/25/22
--- NOTE | 2022-04-25 13:11 | HO.PM.IMPN ---
Subjective Subjective Date of Service: 04/25/22 Physical Exam Vital Signs: Vital Signs: Last Vital Signs Temp 98.5 F 04/25/22 11:11 Pulse 75 04/25/22 11:11 Resp 20 04/25/22 11:11 BP 158/64 H 04/25/22 11:11 Pulse Ox 97 04/25/22 11:11 O2 Del Method 04/25/22 11:11 O2 Flow Rate 5 04/25/22 11:11 FiO2 90 04/23/22 09:00 BMI result Body Mass Index 32.2 Objective Data Active Medications Acetaminophen (Acetaminophen 325 Mg Tablet) 650 mg PO Q6H PRN PRN Reason: Pain, Mild (Pain Scale 1-3) Albuterol/Ipratropium (Albuterol/Iprat 2.5/0.5mg 3 Ml Ampul.Neb) 3 ml INHALE RQ4H PRN PRN Reason: Shortness of Breath/Wheezing Last Admin: 04/23/22 02:44 Dose: 3 ml Documented By: OJ Atorvastatin Calcium (Atorvastatin Calcium 80 Mg Tablet) 80 mg PO DAILY@2100 [facility] Last Admin: 04/24/22 21:39 Dose: 80 mg Documented By: ABDI Cyanocobalamin (Cyanocobalamin (Vitamin B-12) 1,000 Mcg/Ml Vial) 1,000 mcg IM DAILY [facility] Stop: 04/30/22 09:01 Last Admin: 04/25/22 10:05 Dose: 1,000 mcg Documented By: OLGA Metronidazole (Flagyl) 500 mg in 100 mls @ 100 mls/hr IV Q8H [facility] Last Infusion: 04/25/22 06:45 Dose: 0 mls/hr Documented By: ABDI Levofloxacin (Levaquin) 500 mg in 100 mls @ 100 mls/hr IV Q48H [facility] Last Infusion: 04/25/22 11:49 Dose: 0 mls/hr Documented By: OLGA Furosemide 200 mg/ Sodium (Chloride) 100 mls @ 1.5 mls/hr IVCONT .Q24H [facility] Last Admin: 04/24/22 21:40 Dose: 3 mg/hr, 1.5 mls/hr Documented By: ABDI Levothyroxine Sodium (Levothyroxine Sodium 112 Mcg Tablet) 112 mcg PO 0600 [facility] Last Admin: 04/25/22 05:36 Dose: 112 mcg Documented By: ABDI Melatonin (Melatonin 3 Mg Tablet) 6 mg PO BEDTIME PRN PRN Reason: Insomnia Morphine Sulfate (Morphine Sulfate 2 Mg/Ml Cartridge) 2 mg IVPUSH Q3H PRN; Protocol PRN Reason: Breakthrough Pain Last Admin: 04/23/22 13:21 Dose: 2 mg Documented By: SHAGUFTA Ondansetron HCl (Ondansetron Hcl 4 Mg/2 Ml Vial) 4 mg IVPUSH Q6H PRN PRN Reason: Nausea Last Admin: 04/23/22 15:24 Dose: 4 mg Documented By: SHAGUFTA Pharmacy Consult (Consult Rx Perform Med Rec) 1 each MISCELLANE ONCE PRN PRN Reason: Consult order Polyethylene Glycol (Polyethylene Glycol 3350 17 Gm Powd.Pack) 17 gm PO BEDTIME [facility] Last Admin: 04/24/22 21:40 Dose: 17 gm Documented By: ABDI Senna (Sennosides 8.6 Mg Tablet) 17.2 mg PO BEDTIME PRN PRN Reason: Constipation Sodium Chloride (0.9 % Sodium Chloride Flush 3 Ml Syringe) 3 ml IVFLUSH QSHIFT [facility] Last Admin: 04/25/22 10:07 Dose: 3 ml Documented By: OLGA Vitamin D (Cholecalciferol (Vitamin D3) 25 Mcg Tablet) 25 mcg PO DAILY [facility] Last Admin: 04/25/22 10:03 Dose: 25 mcg Documented By: OLGA Labs CBC & Chem 7: 04/25/22 06:10 04/25/22 06:10 Labs: Laboratory Results - last 24 hr 04/21/22 04/24/22 04/24/22 21:54 11:08 18:04 MCV MCH MCHC RDW Plt Count MPV Absolute Nucleated RBC Nucleated RBC % (auto) Anion Gap 21 H Estim Creat Clear Calc 12.8 Estimated GFR 14 Random Glucose 126 H Calcium 8.1 L Magnesium B-Natriuretic Peptide Urine Eosinophils % U Random Total Protein Ur Random Sodium Urine Creatinine Complement C3 88 Complement C4 22 Blood Type A Positive Antibody Screen NEGATIVE Crossmatch See Detail 04/24/22 04/24/22 04/24/22 18:06 18:06 21:30 MCV MCH MCHC RDW Plt Count MPV Absolute Nucleated RBC Nucleated RBC % (auto) Anion Gap Estim Creat Clear Calc Estimated GFR Random Glucose Calcium Magnesium B-Natriuretic Peptide Urine Eosinophils % 1.0 U Random Total Protein 21 H Ur Random Sodium 102.0 Urine Creatinine 20.49 Complement C3 Complement C4 Blood Type Antibody Screen Crossmatch 04/25/22 04/25/22 04/25/22 06:10 06:10 06:10 MCV 91.8 MCH 30.5 MCHC 33.2 RDW 15.0 Plt Count 155 L MPV 11.3 Absolute Nucleated RBC 0.000 Nucleated RBC % (auto) 0.0 Anion Gap 18 Estim Creat Clear Calc 12.2 Estimated GFR 14 Random Glucose 96 Calcium 8.4 Magnesium 1.7 B-Natriuretic Peptide 132 H Urine Eosinophils % U Random Total Protein Ur Random Sodium Urine Creatinine Complement C3 Complement C4 Blood Type Antibody Screen Crossmatch Microbiology Microbiology Results: Microbiology 04/21/22 21:53 Blood Culture - Preliminary Blood - Venous Escherichia coli Gram negative edwardo 04/21/22 21:53 Blood Culture - Preliminary Blood - Venous Escherichia coli Gram negative edwardo Assessment and Plan (1) Acute respiratory failure with hypoxia: Status: Acute [facility] hospital d#5 81yo F with CAD s/p PCI, LBBB, HTN, HLD, preDM, pancreatic cystic lesion s/p recent EUS presented with abd pain, found to have diverticulitis, Gm-neg bacteremia,? CHF exacerbation, atypical pneumonitis [place] [facility] [place] to [place] 04/22/22 due due to acute hypoxic respiratory failure requiring BiPAP stepped down to C 04/23/22 on furosemide drip # Gm-negative bacteremia: resendez-sensitive E coli plus a 2nd GNR - follow BCx, on d#4 levofloxacin, ID consulted # acute diverticulitis - d#4 levofloxacin + metronidazole - clear liquid diet -> advance to solids today # CHF exacerbation [acute/chronic HFpEF] - continue IV furosemide infusion.? Cardiology consulted.? TTE 04/22/22 showed: - Normal left ventricular size and systolic function. There is ? mildly increased left ventricular wall thickness.? The visually? estimated ejection fraction is between 60-65%.? There is no? ? ? evidence of regional wall motion ? - E/E prime ratio is >15, consistent with elevated filling ? ? ? pressures. ? - Normal right ventricular cavity size and systolic function.? ? - There is mild aortic valve stenosis. # TOMA - cardiorenal? septic ATN? hold losartan + avoid nephrotoxins. Nephrology following; SCr hopefully close to plateauing # hypoK - replete, recheck BMP tomorrow # anemia due to GI blood loss vs sepsis # FOBT+ stool - GI consulted.? ASA on hold.? monitor Hb.? IV PPI empirically; Hb responded appropriately to 1u pRBCs transfused 04/24/22 # question of atypical pneumonitis - trend PCT which was very elevated to 178 on admission; continue levofloxacin, Legionella Ag pending # Tn-I elevation - per Cardiology likely demand/type 2 ischemia.? no heparin indicated.? add back ASA when question of GI bleed resolves. # vitamin B12 anemia - anti-IF and antiparietal antibodies pending; on parenteral B12 replacement for a week, then PO # question of temporal arteritis - reportedly had negative biopsy and is on prednisone taper- continue.? consider stress-dose hydrocortisone if develops kyree hypotension # HTN - holding amlodipine, losartan, and hyralazine for soft BP/TOMA # CAD # HLD - continue statin; holding ASA due to FOBT+ stool # hypothyroidism - continue LT4 # stage 2 pressure ulcer of coccyx - wound care # VTE ppx: SCDs Quality Stroke Does the patient have a stroke diagnosis?: No VTE Prior VTE?: No VTE Risk Level:: Medical - moderate - high VTE Device Contraindication: N/A - Device Ordered VTE Drug Contraindication: Treatment Not Indicated
--- NOTE | 2022-04-25 13:44 | MHC.CM.PN ---
Addendum entered by Coreen Thompson 04/25/22 14:55: Celestino CALHOUN and Tamiko have been referred for PULMONARY REHAB, and are following for discharge. Original Note: Female 81 DX Diverticulitis CP Elevated Troponin DP intially Home no services, family transport. Per MD Rounds today, Dispo likely STR. A PT eval will be ordered to assist with Dispo. BLS vs Family transport.
[2022-04-25] MEDS: Morphine Sulfate 2 MG/ML CARTRIDGE IVPUSH (15:09)
[2022-04-25 18:21] LABS: Anion Gap 21 (12-20); Blood Urea Nitrogen 45 mg/dL (9-16); Calcium 8.8 mg/dL (8.4-10.2); Carbon Dioxide 25 mmol/L (22-29); Chloride 96 mmol/L (96-108); Creatinine Clr Calc Pharmacy 12.1; Estimated Glomerular Filt Rate 13; Glucose Random 94 mg/dL (60-115); Potassium 3.2 mmol/L (3.3-5.1); Sodium 139 mmol/L (135-145)
[2022-04-25 19:56] LABS: Anti Glomerular Basement Memb <1.0 AI; Myeloperoxidase Antibody <1.0 AI; Proteinase 3 PR3 Antibodies <1.0 AI
[2022-04-25] MEDS: Furosemide 200 MG in 0.9 % Sodium Chloride 80 ML IVCONT (21:43)
[2022-04-25] MEDS: Atorvastatin Calcium 80 MG TABLET PO (21:43)
[2022-04-26] VITALS (8 sets, daily range): BP systolic 114–141; BP diastolic 56–65; PULSE 66–79; RESP 16–18; TEMP 35.8–37; O2SAT 93–97
[2022-04-26] MEDS: metroNIDAZOLE/NS 500 MG/100 ML PIGGYBACK 100 MG IV ×3 (05:14→20:42)
[2022-04-26] MEDS: Levothyroxine Sodium 112 MCG TABLET PO (05:14)
[2022-04-26 06:40] LABS: Hematocrit 29.3 % (37.0-47.0); Hemoglobin 9.6 g/dl (12.0-16.0); Mean Corpuscular HGB Conc 32.8 g/dl (31.0-35.0); Mean Corpuscular Hemoglobin 30.4 pg (27.0-33.0); Mean Corpuscular Volume 92.7 fL (80.0-98.0); Mean Platelet Volume 11.1 fL (9.4-12.3); Platelet Count 182 X10*3/uL (160-400); Red Blood Count 3.16 X10*6/uL (4.20-5.50); Red Cell Distribution Width 14.8 % (11.0-16.0); White Blood Count 12.7 X10*3/uL (4.8-10.8)
[2022-04-26 07:27] LABS: Anion Gap 24 (12-20); Blood Urea Nitrogen 45 mg/dL (9-16); Calcium 8.7 mg/dL (8.4-10.2); Carbon Dioxide 21 mmol/L (22-29); Chloride 97 mmol/L (96-108); Creatinine Clr Calc Pharmacy 12.3; Estimated Glomerular Filt Rate 14; Glucose Random 101 mg/dL (60-115); Magnesium 1.6 mg/dL (1.6-2.6); Potassium 3.1 mmol/L (3.3-5.1); Sodium 139 mmol/L (135-145)
[2022-04-26 07:39] LABS: Procalcitonin 27.66 ng/mL
[2022-04-26] MEDS: 0.9 % Sodium Chloride Flush 3 ML SYRINGE IVFLUSH ×2 (09:30→20:44)
[2022-04-26] MEDS: Cholecalciferol (Vitamin D3) 25 MCG TABLET PO (09:30)
[2022-04-26] MEDS: Cyanocobalamin (Vitamin B-12) 1,000 MCG/ML VIAL 1000 MCG IM (09:30)
[2022-04-26] MEDS: Morphine Sulfate 2 MG/ML CARTRIDGE IVPUSH (09:40)
--- NOTE | 2022-04-26 12:27 | PM.PNNEP ---
Subjective Subjective Date of Service: 04/26/22 Interval history: Feels much better today Breathing much more comfortable UO noted Physical Exam Vital Signs: Vital Signs: Last Vital Signs Temp 98.6 F 04/26/22 11:09 Pulse 70 04/26/22 11:09 Resp 18 04/26/22 11:09 BP 114/56 L 04/26/22 11:09 Pulse Ox 94 04/26/22 11:09 O2 Del Method 04/26/22 11:09 O2 Flow Rate 5 04/26/22 11:09 FiO2 90 04/23/22 09:00 BMI result Body Mass Index 32.2 Const: Other: Appears comfortable Alert and in no distress Neck: Neck: Yes normal visual inspection and Yes no JVD Resp: Auscultation: clear to auscultation bilaterally Cardio: Rate: regular rate Rhythm: regular rhythm Heart sounds: S1 normal heart sound present and S2 normal heart sound present GI: Other: Abd soft, tender LLQ without rebound, normal bs Extrem: Other: Edema bilateral pretibially Objective Data Labs CBC & Chem 7: 04/26/22 06:08 04/26/22 06:08 Labs: Laboratory Results - last 24 hr 04/24/22 04/25/22 04/26/22 11:08 17:57 06:08 WBC 12.7 H RBC 3.16 L Hgb 9.6 L Hct 29.3 L MCV 92.7 MCH 30.4 MCHC 32.8 RDW 14.8 Plt Count 182 MPV 11.1 Absolute Nucleated RBC 0.000 Nucleated RBC % (auto) 0.0 Sodium 139 Potassium 3.2 L Chloride 96 Carbon Dioxide 25 Anion Gap 21 H BUN 45 H Creatinine 3.29 H Estim Creat Clear Calc 12.1 Estimated GFR 13 Random Glucose 94 Calcium 8.8 Magnesium Procalcitonin Proteinase 3 (PR3) Ab <1.0 Myeloperoxidase Ab <1.0 Glomerular Base Memb Ab <1.0 04/26/22 04/26/22 06:08 06:08 WBC RBC Hgb Hct MCV MCH MCHC RDW Plt Count MPV Absolute Nucleated RBC Nucleated RBC % (auto) Sodium 139 Potassium 3.1 L Chloride 97 Carbon Dioxide 21 L Anion Gap 24 H BUN 45 H Creatinine 3.23 H Estim Creat Clear Calc 12.3 Estimated GFR 14 Random Glucose 101 Calcium 8.7 Magnesium 1.6 Procalcitonin 27.66 Proteinase 3 (PR3) Ab Myeloperoxidase Ab Glomerular Base Memb Ab Microbiology Microbiology Results: Microbiology 04/21/22 21:53 Blood - Venous Blood Culture - Final Escherichia coli Klebsiella pneumoniae 04/21/22 21:53 Blood - Venous Blood Culture - Final Escherichia coli Klebsiella pneumoniae 04/22/22 00:00 Urine clean catch - Urine mendoza top Urine Culture - Final Procedures Date of Service Date of Service: 04/26/22 Assessment & Plan Assessment and plan (1) Congestive heart failure: Status: Acute Assessment and Plan: Improved vol status (2) TOMA (acute kidney injury): Status: Acute Assessment and Plan: TOMA is most likely ATN in the setting of GNR bacteremia/diverticulitis; nonoliguric (3) Diverticulitis: Status: Acute (4) Diverticulitis: Status: Acute Plan Replete K Reduce diuresis now Avoid contrast Time Spent With Patient Time: Total time spent is greater than 50% in coordination of care (as documented) at patient's floor/unit and/or counseling patient: Progress Note: Quality Stroke Does the patient have a stroke diagnosis?: No
--- NOTE | 2022-04-26 13:04 | HO.PM.IMPN ---
Subjective Subjective Date of Service: 04/26/22 Interval History: Breathing has improved per patient still with fecal incontinence Review of Systems Denies chest pain Denies shortness of breath Denies nausea vomiting diarrhea Denies fever chills Physical Exam Vital Signs: Vital Signs: Last Vital Signs Temp 98.6 F 04/26/22 11:09 Pulse 70 04/26/22 11:09 Resp 18 04/26/22 11:09 BP 114/56 L 04/26/22 11:09 Pulse Ox 94 04/26/22 11:09 O2 Del Method 04/26/22 11:09 O2 Flow Rate 5 04/26/22 11:09 FiO2 90 04/23/22 09:00 BMI result Body Mass Index 32.2 Const: Other: No acute distress Resp: Other: Clear but diminished at bases; fine crackles at bases Cardio: Other: No S4; positive S1-S2; no S3 murmurs or gallops GI: Other: Soft nontender nondistended normoactive bowel sounds Extrem: Other: Bilateral edema Objective Data Active Medications Acetaminophen (Acetaminophen 325 Mg Tablet) 650 mg PO Q6H PRN PRN Reason: Pain, Mild (Pain Scale 1-3) Albuterol/Ipratropium (Albuterol/Iprat 2.5/0.5mg 3 Ml Ampul.Neb) 3 ml INHALE RQ4H PRN PRN Reason: Shortness of Breath/Wheezing Last Admin: 04/23/22 02:44 Dose: 3 ml Documented By: OJ Atorvastatin Calcium (Atorvastatin Calcium 80 Mg Tablet) 80 mg PO DAILY@2100 [facility] Last Admin: 04/25/22 21:43 Dose: 80 mg Documented By: MISSY Cyanocobalamin (Cyanocobalamin (Vitamin B-12) 1,000 Mcg/Ml Vial) 1,000 mcg IM DAILY [facility] Stop: 04/30/22 09:01 Last Admin: 04/26/22 09:30 Dose: 1,000 mcg Documented By: LEXUS Cyanocobalamin (Cyanocobalamin (Vitamin B-12) 1,000 Mcg Tablet) 1,000 mcg PO DAILY [facility] Metronidazole (Flagyl) 500 mg in 100 mls @ 100 mls/hr IV Q8H [facility] Last Admin: 04/26/22 12:13 Dose: 100 mls/hr Documented By: LEXUS Levofloxacin (Levaquin) 500 mg in 100 mls @ 100 mls/hr IV Q48H [facility] Last Infusion: 04/25/22 11:49 Dose: 0 mls/hr Documented By: CTORRZ Furosemide 200 mg/ Sodium (Chloride) 100 mls @ 1.5 mls/hr IVCONT .Q24H [facility] Last Admin: 04/25/22 21:43 Dose: 3 mg/hr, 1.5 mls/hr Documented By: MISSY Levothyroxine Sodium (Levothyroxine Sodium 112 Mcg Tablet) 112 mcg PO 0600 [facility] Last Admin: 04/26/22 05:14 Dose: 112 mcg Documented By: MISSY Melatonin (Melatonin 3 Mg Tablet) 6 mg PO BEDTIME PRN PRN Reason: Insomnia Morphine Sulfate (Morphine Sulfate 2 Mg/Ml Cartridge) 2 mg IVPUSH Q3H PRN; Protocol PRN Reason: Breakthrough Pain Last Admin: 04/26/22 09:40 Dose: 2 mg Documented By: LEXUS Ondansetron HCl (Ondansetron Hcl 4 Mg/2 Ml Vial) 4 mg IVPUSH Q6H PRN PRN Reason: Nausea Last Admin: 04/23/22 15:24 Dose: 4 mg Documented By: SHAGUFTA Pharmacy Consult (Consult Rx Perform Med Rec) 1 each MISCELLANE ONCE PRN PRN Reason: Consult order Polyethylene Glycol (Polyethylene Glycol 3350 17 Gm Powd.Pack) 17 gm PO BEDTIME [facility] Last Admin: 04/25/22 21:56 Dose: Not Given Documented By: MISSY Non-Admin Reason: Patient Refused Senna (Sennosides 8.6 Mg Tablet) 17.2 mg PO BEDTIME PRN PRN Reason: Constipation Sodium Chloride (0.9 % Sodium Chloride Flush 3 Ml Syringe) 3 ml IVFLUSH QSHIFT [facility] Last Admin: 04/26/22 09:30 Dose: 3 ml Documented By: LEXUS Vitamin D (Cholecalciferol (Vitamin D3) 25 Mcg Tablet) 25 mcg PO DAILY [facility] Last Admin: 04/26/22 09:30 Dose: 25 mcg Documented By: LEXUS Labs CBC & Chem 7: 04/26/22 06:08 04/26/22 06:08 Labs: Laboratory Results - last 24 hr 04/24/22 04/25/22 04/26/22 11:08 17:57 06:08 MCV 92.7 MCH 30.4 MCHC 32.8 RDW 14.8 Plt Count 182 MPV 11.1 Absolute Nucleated RBC 0.000 Nucleated RBC % (auto) 0.0 Anion Gap 21 H Estim Creat Clear Calc 12.1 Estimated GFR 13 Random Glucose 94 Calcium 8.8 Magnesium Procalcitonin Proteinase 3 (PR3) Ab <1.0 Myeloperoxidase Ab <1.0 Glomerular Base Memb Ab <1.0 04/26/22 04/26/22 06:08 06:08 MCV MCH MCHC RDW Plt Count MPV Absolute Nucleated RBC Nucleated RBC % (auto) Anion Gap 24 H Estim Creat Clear Calc 12.3 Estimated GFR 14 Random Glucose 101 Calcium 8.7 Magnesium 1.6 Procalcitonin 27.66 Proteinase 3 (PR3) Ab Myeloperoxidase Ab Glomerular Base Memb Ab Microbiology Microbiology Results: Microbiology 04/21/22 21:53 Blood Culture - Final Blood - Venous Escherichia coli Klebsiella pneumoniae 04/21/22 21:53 Blood Culture - Final Blood - Venous Escherichia coli Klebsiella pneumoniae Assessment and Plan (1) E coli bacteremia: Status: Acute (2) Diverticulitis: Status: Acute (3) Acute on chronic heart failure with preserved ejection fraction (HFpEF): Status: Acute (4) TOMA (acute kidney injury): Status: Acute Plan 81yo F with CAD s/p PCI, LBBB, HTN, HLD, preDM, pancreatic cystic lesion s/p recent EUS presented with abd pain, found to have diverticulitis, Gm-neg bacteremia,? CHF exacerbation, atypical pneumonitis [place] [facility] [place] 04/22/22 due due to acute hypoxic respiratory failure requiring BiPAP stepped down [place] [facility] 04/23/22 on furosemide drip 1.EColi bacteremia: - levofloxacin(5) -, ID consult for duration 2.Acute diverticulitis -levofloxacin/metronidazole(5) -still incontinent of stool likely related antibiotics -advance diet as tolerated 3.Acute/chronic HFpEF - aggressively replete potassium -will DC Lasix drip. .. B.i.d. IV Lasix as per Renal -follow renals/divalents 4.ATN(in backdrop of GN bacteremia/diverticulitis) - change diuresis as per 3. -continue to treat bacteremia and diverticulitis 5. Hypertension -acceptable control off therapies -add back when clinically indicated 6. CAD -follow hemoglobin daily -if stable in a.m. will add back ASA 81 mg daily Pneumatic boots Will require ongoing hospitalization for IV antibiotics to treat bacteremia and diverticulitis Quality Stroke Does the patient have a stroke diagnosis?: No VTE Prior VTE?: No VTE Risk Level:: Medical - moderate - high VTE Device Contraindication: N/A - Device Ordered VTE Drug Contraindication: Treatment Not Indicated
[2022-04-26 14:16] LABS: Haptoglobin 476 mg/dL (43-212)
--- NOTE | 2022-04-26 14:16 | P.PNCA_ITS ---
Subjective Subjective Date of Service: 04/26/22 Interval history: Seen and examined at bedside. She is feeling better. Creatinine has plateaued. Nephrology following. Physical Exam Vital Signs: Last Vital Signs Temp 98.6 F 04/26/22 11:09 Pulse 70 04/26/22 11:09 Resp 18 04/26/22 11:09 BP 114/56 L 04/26/22 11:09 Pulse Ox 94 04/26/22 11:09 O2 Del Method 04/26/22 11:09 O2 Flow Rate 5 04/26/22 11:09 FiO2 90 04/23/22 09:00 BMI result Body Mass Index 32.2 GENERAL APPEARANCE: in no acute distress, pleasant. NECK: no carotid bruit, elevated jugular venous distention. SKIN: no suspicious lesions, warm and dry. HEART: no murmurs, regular rate and rhythm. LUNGS: No significant crackles. Diminished at bases. ABDOMEN: soft, nontender. EXTREMITIES: no edema. PERIPHERAL PULSES: equal. NEUROLOGIC: No gross deficits, AAO X 3 Objective Labs and Meds Result diagrams: 04/26/22 06:08 04/26/22 06:08 Lab results: Laboratory Results - last 24 hr 04/24/22 04/25/22 04/26/22 11:08 17:57 06:08 WBC 12.7 H RBC 3.16 L Hgb 9.6 L Hct 29.3 L MCV 92.7 MCH 30.4 MCHC 32.8 RDW 14.8 Plt Count 182 MPV 11.1 Absolute Nucleated RBC 0.000 Nucleated RBC % (auto) 0.0 Sodium 139 Potassium 3.2 L Chloride 96 Carbon Dioxide 25 Anion Gap 21 H BUN 45 H Creatinine 3.29 H Estim Creat Clear Calc 12.1 Estimated GFR 13 Random Glucose 94 Calcium 8.8 Magnesium Procalcitonin Proteinase 3 (PR3) Ab <1.0 Myeloperoxidase Ab <1.0 Glomerular Base Memb Ab <1.0 04/26/22 04/26/22 06:08 06:08 WBC RBC Hgb Hct MCV MCH MCHC RDW Plt Count MPV Absolute Nucleated RBC Nucleated RBC % (auto) Sodium 139 Potassium 3.1 L Chloride 97 Carbon Dioxide 21 L Anion Gap 24 H BUN 45 H Creatinine 3.23 H Estim Creat Clear Calc 12.3 Estimated GFR 14 Random Glucose 101 Calcium 8.7 Magnesium 1.6 Procalcitonin 27.66 Proteinase 3 (PR3) Ab Myeloperoxidase Ab Glomerular Base Memb Ab Imaging Radiologist's impression: Impressions Chest CT 04/25/22 09:01 IMPRESSION: * Three-vessel coronary artery atherosclerotic disease, pulmonary edema and small bilateral pleural effusions. * The groundglass opacities predominantly observed in the right lung could represent asymmetric distribution of pulmonary edema. Any superimposed pneumonia may need to be excluded on the basis of clinical criteria. * Mild pulmonary emphysema. Progress Note: A&P Assessment and plan (1) Acute on chronic heart failure with preserved ejection fraction (HFpEF): Status: Acute (2) E coli bacteremia: Status: Acute (3) Diverticulitis: Status: Acute Plan Pleasant 81-year-old female presented with diverticulitis and developed Gram- negative sepsis with septic acute tubular necrosis as well as congestive heart failure. Creatinine has plateaued at this point. Clinically patient is doing well with diuretics. Agree with changing to bolus doses. Control blood pressure. Overall doing well. Once hemoglobin stable baby aspirin should be resumed given history of coronary disease and LAD PCI in the past. Thank you for allowing me to participate in the care of your patient. Please feel free to contact me if you have any questions. Time Spent With Patient Time: Total time spent is greater than 50% in coordination of care (as documented) at patient's floor/unit and/or counseling patient: Progress Note: Quality Stroke Does the patient have a stroke diagnosis?: No Procedures Date of Service Date of Service: 04/26/22
[2022-04-26 15:47] LABS: Legionella Ag Urine Not Detected (Not Detected)
[2022-04-26 18:56] LABS: Intrinsic Factor Antibodies Negative (Negative)
[2022-04-26] MEDS: Atorvastatin Calcium 80 MG TABLET PO (20:42)
[2022-04-26] MEDS: ondansetron HCL 4 MG/2 ML VIAL IVPUSH (20:51)
[2022-04-27] VITALS (7 sets, daily range): BP systolic 112–148; BP diastolic 50–68; PULSE 68–73; RESP 16–20; TEMP 36.4–37.1; O2SAT 94–96
[2022-04-27] MEDS: metroNIDAZOLE/NS 500 MG/100 ML PIGGYBACK 100 MG IV ×3 (04:24→20:56)
[2022-04-27] MEDS: Levothyroxine Sodium 112 MCG TABLET PO (04:25)
[2022-04-27 06:45] LABS: MANUAL DIFF FLAG NO
[2022-04-27 06:55] LABS: Basophils Percent Auto 0.3 % (0-2); Eosinophils Absolute Auto 0.1 X10*3/uL (0.0-0.4); Eosinophils Percent Auto 1.1 % (0-4); Hematocrit 30.2 % (37.0-47.0); Imm Gran Abs Auto 0.11 X10*3/uL (0.00-0.03); Lymphocytes Absolute Auto 0.9 X10*3/uL (1.2-4.9); Lymphocytes Percent Auto 8.5 % (20-40); Mean Corpuscular HGB Conc 33.1 g/dl (31.0-35.0); Mean Corpuscular Hemoglobin 30.2 pg (27.0-33.0); Mean Corpuscular Volume 91.2 fL (80.0-98.0); Mean Platelet Volume 10.8 fL (9.4-12.3); Monocytes Absolute Auto 1.1 X10*3/uL (0.1-1.2); Neutrophils Absolute Auto 8.5 x10*3/uL (2.0-8.3); Neutrophils Percent Auto 79.1 % (45-73); Platelet Count 191 X10*3/uL (160-400); Red Blood Count 3.31 X10*6/uL (4.20-5.50); Red Cell Distribution Width 14.7 % (11.0-16.0); White Blood Count 10.8 X10*3/uL (4.8-10.8)
[2022-04-27 07:30] LABS: Alanine Aminotransferase 6 U/L (0-31); Albumin Level 3.1 g/dL (3.5-5.0); Alkaline Phosphatase 84 U/L (39-117); Anion Gap 21 (12-20); Aspartate Amino Transferase 14 U/L (5-31); Bilirubin Total 0.3 mg/dL (0.0-1.0); Blood Urea Nitrogen 49 mg/dL (9-16); Calcium 8.5 mg/dL (8.4-10.2); Carbon Dioxide 27 mmol/L (22-29); Chloride 94 mmol/L (96-108); Creatinine Clr Calc Pharmacy 12.6; Estimated Glomerular Filt Rate 14; Glucose Fasting 111 mg/dL (60-99); Potassium 2.4 mmol/L (3.3-5.1); Sodium 140 mmol/L (135-145); Total Protein 5.2 g/dL (6.5-8.0)
[2022-04-27] MEDS: Cyanocobalamin (Vitamin B-12) 1,000 MCG/ML VIAL 1000 MCG IM (07:52)
[2022-04-27] MEDS: Potassium Chloride ER 20 MEQ TAB.ER.PRT 40 MEQ PO ×2 (07:52→20:51)
[2022-04-27] MEDS: Cholecalciferol (Vitamin D3) 25 MCG TABLET PO (07:52)
[2022-04-27] MEDS: 0.9 % Sodium Chloride Flush 3 ML SYRINGE IVFLUSH (07:52)
[2022-04-27 07:57] LABS: Magnesium 1.5 mg/dL (1.6-2.6)
[2022-04-27] MEDS: Morphine Sulfate 2 MG/ML CARTRIDGE IVPUSH (08:01)
[2022-04-27] MEDS: Potassium Chloride/H20 10 MEQ/100 ML PIGGYBACK 100 MEQ IV ×4 (08:02→16:57)
[2022-04-27] MEDS: levoFLOXacin/D5W 500 MG/100 ML PIGGYBACK 100 MG IV (09:28)
[2022-04-27] MEDS: Magnesium Sulfate/H2O 2 GM/50 ML PIGGYBACK IV (10:01)
--- NOTE | 2022-04-27 13:07 | HO.PM.IMPN ---
Subjective Subjective Date of Service: 04/27/22 Interval History: Continues to improve. Breathing markedly improved per patient Review of Systems Denies chest pain Denies shortness of breath Denies nausea vomiting diarrhea Denies fever chills Physical Exam Vital Signs: Vital Signs: Last Vital Signs Temp 98.0 F 04/27/22 11:39 Pulse 73 04/27/22 11:39 Resp 16 04/27/22 11:39 BP 116/53 L 04/27/22 11:39 Pulse Ox 94 04/27/22 11:39 O2 Del Method 04/27/22 11:39 O2 Flow Rate 2.5 04/27/22 11:39 FiO2 90 04/23/22 09:00 BMI result Body Mass Index 32.2 Const: Other: No acute distress Resp: Other: Clear but diminished at bases; fine crackles at bases Cardio: Other: No S4; positive S1-S2; no S3 murmurs or gallops GI: Other: Soft nontender nondistended normoactive bowel sounds Extrem: Other: Bilateral edema Objective Data Active Medications Acetaminophen (Acetaminophen 325 Mg Tablet) 650 mg PO Q6H PRN PRN Reason: Pain, Mild (Pain Scale 1-3) Albuterol/Ipratropium (Albuterol/Iprat 2.5/0.5mg 3 Ml Ampul.Neb) 3 ml INHALE RQ4H PRN PRN Reason: Shortness of Breath/Wheezing Last Admin: 04/23/22 02:44 Dose: 3 ml Documented By: OJ Atorvastatin Calcium (Atorvastatin Calcium 80 Mg Tablet) 80 mg PO DAILY@2100 [facility]ATA Last Admin: 04/26/22 20:42 Dose: 80 mg Documented By: CHRISTIANO Cyanocobalamin (Cyanocobalamin (Vitamin B-12) 1,000 Mcg/Ml Vial) 1,000 mcg IM DAILY [facility] Stop: 04/30/22 09:01 Last Admin: 04/27/22 07:52 Dose: 1,000 mcg Documented By: LEXUS Cyanocobalamin (Cyanocobalamin (Vitamin B-12) 1,000 Mcg Tablet) 1,000 mcg PO DAILY [facility] Metronidazole (Flagyl) 500 mg in 100 mls @ 100 mls/hr IV Q8H [facility] Last Admin: 04/27/22 11:58 Dose: 100 mls/hr Documented By: LEXUS Levofloxacin (Levaquin) 500 mg in 100 mls @ 100 mls/hr IV Q48H [facility] Last Infusion: 04/27/22 10:36 Dose: 0 mls/hr Documented By: LEXUS Levothyroxine Sodium (Levothyroxine Sodium 112 Mcg Tablet) 112 mcg PO 0600 [facility] Last Admin: 04/27/22 04:25 Dose: 112 mcg Documented By: CHRISTIANO Melatonin (Melatonin 3 Mg Tablet) 6 mg PO BEDTIME PRN PRN Reason: Insomnia Morphine Sulfate (Morphine Sulfate 2 Mg/Ml Cartridge) 2 mg IVPUSH Q3H PRN; Protocol PRN Reason: Breakthrough Pain Last Admin: 04/27/22 08:01 Dose: 2 mg Documented By: LEXUS Ondansetron HCl (Ondansetron Hcl 4 Mg/2 Ml Vial) 4 mg IVPUSH Q6H PRN PRN Reason: Nausea Last Admin: 04/26/22 20:51 Dose: 4 mg Documented By: CHRISTIANO Pharmacy Consult (Consult Rx Perform Med Rec) 1 each MISCELLANE ONCE PRN PRN Reason: Consult order Polyethylene Glycol (Polyethylene Glycol 3350 17 Gm Powd.Pack) 17 gm PO BEDTIME [facility] Last Admin: 04/26/22 20:38 Dose: Not Given Documented By: CHRISTIANO Non-Admin Reason: loose stools Potassium Chloride (Potassium Chloride Er 20 Meq Tab.Er.Prt) 40 meq PO BID [facility] Last Admin: 04/27/22 07:52 Dose: 40 meq Documented By: LEXUS Senna (Sennosides 8.6 Mg Tablet) 17.2 mg PO BEDTIME PRN PRN Reason: Constipation Sodium Chloride (0.9 % Sodium Chloride Flush 3 Ml Syringe) 3 ml IVFLUSH QSHIFT [facility] Last Admin: 04/27/22 07:52 Dose: 3 ml Documented By: LEXUS Vitamin D (Cholecalciferol (Vitamin D3) 25 Mcg Tablet) 25 mcg PO DAILY [facility] Last Admin: 04/27/22 07:52 Dose: 25 mcg Documented By: LEXUS Labs CBC & Chem 7: 04/27/22 06:33 04/27/22 06:33 Labs: Laboratory Results - last 24 hr 04/22/22 04/22/22 04/23/22 18:32 20:44 16:05 MCV MCH MCHC RDW Plt Count MPV Immature Gran % (Auto) Neut % (Auto) Lymph % (Auto) [place] % (Auto) Eos % (Auto) Baso % (Auto) Lymph # (Auto) [place] # (Auto) Eos # (Auto) Baso # (Auto) Abs Immat Gran (auto) Absolute Neuts (auto) Absolute Nucleated RBC Nucleated RBC % (auto) Haptoglobin 476 H Anion Gap Estim Creat Clear Calc Estimated GFR Fasting Glucose Calcium Magnesium Total Bilirubin AST ALT Alkaline Phosphatase Total Protein Albumin Intrinsic Factor Ab Negative Ur L.pneumophila Ag Not Detected 04/27/22 04/27/22 06:33 06:33 MCV 91.2 MCH 30.2 MCHC 33.1 RDW 14.7 Plt Count 191 MPV 10.8 Immature Gran % (Auto) 1.0 H Neut % (Auto) 79.1 H Lymph % (Auto) 8.5 L [place] % (Auto) 10.0 Eos % (Auto) 1.1 Baso % (Auto) 0.3 Lymph # (Auto) 0.9 L [place] # (Auto) 1.1 Eos # (Auto) 0.1 Baso # (Auto) 0.0 Abs Immat Gran (auto) 0.11 H Absolute Neuts (auto) 8.5 H Absolute Nucleated RBC 0.000 Nucleated RBC % (auto) 0.0 Haptoglobin Anion Gap 21 H Estim Creat Clear Calc 12.6 Estimated GFR 14 Fasting Glucose 111 H Calcium 8.5 Magnesium 1.5 L Total Bilirubin 0.3 AST 14 ALT 6 Alkaline Phosphatase 84 Total Protein 5.2 L Albumin 3.1 L Intrinsic Factor Ab Ur L.pneumophila Ag Assessment and Plan (1) E coli bacteremia: Status: Acute (2) Diverticulitis: Status: Acute (3) Acute on chronic heart failure with preserved ejection fraction (HFpEF): Status: Acute Plan 81yo F with CAD s/p PCI, LBBB, HTN, HLD, preDM, pancreatic cystic lesion s/p recent EUS presented with abd pain, found to have diverticulitis, Gm-neg bacteremia,? CHF exacerbation, atypical pneumonitis admitted to [facility] [place], transferred to ICU 04/22/22 due due to acute hypoxic respiratory failure requiring BiPAP stepped down to [facility] [place] 04/23/22 on furosemide drip 1.EColi bacteremia: - levofloxacin(6) -, ID consult for duration 2.Acute diverticulitis -levofloxacin/metronidazole(6) -still incontinent of stool likely related antibiotics -advance diet as tolerated 3.Acute/chronic HFpEF -aggressively replete potassium -b.i.d. Lasix in a.m. of potassium normalized -follow renals/divalents 4.ATN(in backdrop of GN bacteremia/diverticulitis) - change diuresis as per 3. -continue to treat bacteremia and diverticulitis 5. Hypertension -acceptable control off therapies -add back when clinically indicated 6. CAD -follow hemoglobin daily -if stable in a.m. will add back ASA 81 mg daily Pneumatic boots Will require ongoing hospitalization for IV antibiotics to treat bacteremia and diverticulitis Quality Stroke Does the patient have a stroke diagnosis?: No VTE Prior VTE?: No VTE Risk Level:: Medical - moderate - high VTE Device Contraindication: N/A - Device Ordered VTE Drug Contraindication: Treatment Not Indicated
--- NOTE | 2022-04-27 13:09 | PM.PNNEP ---
Subjective Subjective Date of Service: 04/27/22 Interval history: Continues to improve. Breathing markedly improved per patient Physical Exam Vital Signs: Vital Signs: Last Vital Signs Temp 98.0 F 04/27/22 11:39 Pulse 73 04/27/22 11:39 Resp 16 04/27/22 11:39 BP 116/53 L 04/27/22 11:39 Pulse Ox 94 04/27/22 11:39 O2 Del Method 04/27/22 11:39 O2 Flow Rate 2.5 04/27/22 11:39 FiO2 90 04/23/22 09:00 BMI result Body Mass Index 32.2 Const: Other: No acute distress Neck: Neck: Yes normal visual inspection and Yes no JVD Resp: Other: Clear but diminished at bases; fine crackles at bases Auscultation: clear to auscultation bilaterally Cardio: Other: No S4; positive S1-S2; no S3 murmurs or gallops Rate: regular rate Rhythm: regular rhythm Heart sounds: S1 normal heart sound present and S2 normal heart sound present GI: Other: Soft nontender nondistended normoactive bowel sounds Extrem: Other: Bilateral edema Objective Data Labs CBC & Chem 7: 04/27/22 06:33 04/27/22 06:33 Labs: Laboratory Results - last 24 hr 04/22/22 04/22/22 04/23/22 18:32 20:44 16:05 WBC RBC Hgb Hct MCV MCH MCHC RDW Plt Count MPV Immature Gran % (Auto) Neut % (Auto) Lymph % (Auto) [place] % (Auto) Eos % (Auto) Baso % (Auto) Lymph # (Auto) [place] # (Auto) Eos # (Auto) Baso # (Auto) Abs Immat Gran (auto) Absolute Neuts (auto) Absolute Nucleated RBC Nucleated RBC % (auto) Haptoglobin 476 H Sodium Potassium Chloride Carbon Dioxide Anion Gap BUN Creatinine Estim Creat Clear Calc Estimated GFR Fasting Glucose Calcium Magnesium Total Bilirubin AST ALT Alkaline Phosphatase Total Protein Albumin Intrinsic Factor Ab Negative Ur L.pneumophila Ag Not Detected 04/27/22 04/27/22 06:33 06:33 WBC 10.8 RBC 3.31 L Hgb 10.0 L Hct 30.2 L MCV 91.2 MCH 30.2 MCHC 33.1 RDW 14.7 Plt Count 191 MPV 10.8 Immature Gran % (Auto) 1.0 H Neut % (Auto) 79.1 H Lymph % (Auto) 8.5 L [place] % (Auto) 10.0 Eos % (Auto) 1.1 Baso % (Auto) 0.3 Lymph # (Auto) 0.9 L [place] # (Auto) 1.1 Eos # (Auto) 0.1 Baso # (Auto) 0.0 Abs Immat Gran (auto) 0.11 H Absolute Neuts (auto) 8.5 H Absolute Nucleated RBC 0.000 Nucleated RBC % (auto) 0.0 Haptoglobin Sodium 140 Potassium 2.4 L* D Chloride 94 L Carbon Dioxide 27 Anion Gap 21 H BUN 49 H Creatinine 3.16 H Estim Creat Clear Calc 12.6 Estimated GFR 14 Fasting Glucose 111 H Calcium 8.5 Magnesium 1.5 L Total Bilirubin 0.3 AST 14 ALT 6 Alkaline Phosphatase 84 Total Protein 5.2 L Albumin 3.1 L Intrinsic Factor Ab Ur L.pneumophila Ag Microbiology Microbiology Results: Microbiology 04/21/22 21:53 Blood - Venous Blood Culture - Final Escherichia coli Klebsiella pneumoniae 04/21/22 21:53 Blood - Venous Blood Culture - Final Escherichia coli Klebsiella pneumoniae 04/22/22 00:00 Urine clean catch - Urine mendoza top Urine Culture - Final Procedures Date of Service Date of Service: 04/27/22 Assessment & Plan Assessment and plan (1) TOMA (acute kidney injury): Status: Acute (2) CKD (chronic kidney disease) stage 3, GFR 30-59 ml/min: Status: Acute (3) Hypokalemia: Status: Acute Plan 81yo F with CAD s/p PCI, LBBB, HTN, HLD, preDM, pancreatic cystic lesion s/p recent EUS presented with abd pain, found to have diverticulitis, Gm-neg bacteremia,? CHF exacerbation, atypical pneumonitis admitted to [facility] [place], transferred to ICU 04/22/22 due due to acute hypoxic respiratory failure requiring BiPAP stepped down to [facility] 04/23/22 on furosemide drip. Vol status much improved. Hypokalemic 1. TOMA most likely ATN in the setting of GNR sepsis/diverticulitis On levaquin; nonoliguric and creat trending downward 2. CHF resolve: hold diuretics now 3. Hypokalemia due to loop diuretic: repleting along with magnesium 4. Underlying CKD Recommend: Hold lasix KCL repletion Avoid contrast Time Spent With Patient Time: Total time spent is greater than 50% in coordination of care (as documented) at patient's floor/unit and/or counseling patient: Progress Note: Quality Stroke Does the patient have a stroke diagnosis?: No
[2022-04-27 15:27] LABS: Urea, Random Urine 147 mg/dL
[2022-04-27] MEDS: Atorvastatin Calcium 80 MG TABLET PO (20:51)
[2022-04-28] VITALS (7 sets, daily range): BP systolic 128–159; BP diastolic 62–67; PULSE 63–75; RESP 16–22; TEMP 36.4–37.3; O2SAT 93–98
[2022-04-28] MEDS: metroNIDAZOLE/NS 500 MG/100 ML PIGGYBACK 100 MG IV ×3 (04:18→20:28)
[2022-04-28] MEDS: Levothyroxine Sodium 112 MCG TABLET PO (04:20)
[2022-04-28] MEDS: Morphine Sulfate 2 MG/ML CARTRIDGE IVPUSH (08:00)
[2022-04-28] MEDS: 0.9 % Sodium Chloride Flush 3 ML SYRINGE IVFLUSH ×3 (08:00→20:28)
[2022-04-28] MEDS: Cyanocobalamin (Vitamin B-12) 1,000 MCG/ML VIAL 1000 MCG IM (08:00)
[2022-04-28] MEDS: Cholecalciferol (Vitamin D3) 25 MCG TABLET PO (08:00)
[2022-04-28] MEDS: Potassium Chloride ER 20 MEQ TAB.ER.PRT 40 MEQ PO ×2 (08:00→20:27)
[2022-04-28 08:12] LABS: Basophils Percent Auto 0.3 % (0-2); Eosinophils Absolute Auto 0.2 X10*3/uL (0.0-0.4); Eosinophils Percent Auto 1.8 % (0-4); Hematocrit 31.2 % (37.0-47.0); Hemoglobin 10.2 g/dl (12.0-16.0); Imm Gran Abs Auto 0.11 X10*3/uL (0.00-0.03); Imm Gran Pct Auto 1.2 % (0.0-0.4); Lymphocytes Absolute Auto 1.1 X10*3/uL (1.2-4.9); Lymphocytes Percent Auto 11.8 % (20-40); MANUAL DIFF FLAG SCAN; Mean Corpuscular HGB Conc 32.7 g/dl (31.0-35.0); Mean Corpuscular Hemoglobin 30.8 pg (27.0-33.0); Mean Corpuscular Volume 94.3 fL (80.0-98.0); Monocytes Percent Auto 10.7 % (2-11); Neutrophils Percent Auto 74.2 % (45-73); PLT CLUMP 1; Red Blood Count 3.31 X10*6/uL (4.20-5.50); Red Cell Distribution Width 15.3 % (11.0-16.0); SCAN SMEAR FLAG 1
[2022-04-28 08:27] LABS: Alanine Aminotransferase 7 U/L (0-31); Albumin Level 2.9 g/dL (3.5-5.0); Alkaline Phosphatase 75 U/L (39-117); Anion Gap 18 (12-20); Aspartate Amino Transferase 17 U/L (5-31); Bilirubin Total 0.3 mg/dL (0.0-1.0); Blood Urea Nitrogen 46 mg/dL (9-16); Calcium 8.5 mg/dL (8.4-10.2); Carbon Dioxide 26 mmol/L (22-29); Chloride 99 mmol/L (96-108); Creatinine Clr Calc Pharmacy 14.9; Estimated Glomerular Filt Rate 17; Glucose Fasting 96 mg/dL (60-99); Potassium 4.3 mmol/L (3.3-5.1); Sodium 139 mmol/L (135-145); Total Protein 5.1 g/dL (6.5-8.0)
[2022-04-28 09:05] LABS: Platelet Count 180 X10*3/uL (160-400); White Blood Count 9.4 X10*3/uL (4.8-10.8)
[2022-04-28 09:06] LABS: SLIDE REVIEW VERIFIED
--- NOTE | 2022-04-28 10:10 | PM.PNNEP ---
Subjective Subjective Date of Service: 04/28/22 Interval history: Seen and examined, events noted Physical Exam Vital Signs: Vital Signs: Last Vital Signs Temp 98.4 F 04/28/22 08:00 Pulse 63 04/28/22 08:00 Resp 20 04/28/22 08:00 BP 150/67 H 04/28/22 08:00 Pulse Ox 93 04/28/22 08:00 O2 Del Method 04/28/22 08:00 O2 Flow Rate 2.5 04/28/22 08:00 FiO2 90 04/23/22 09:00 BMI result Body Mass Index 32.2 Neck: Neck: Yes normal visual inspection and Yes no JVD Resp: Auscultation: clear to auscultation bilaterally Cardio: Rate: regular rate Rhythm: regular rhythm Heart sounds: S1 normal heart sound present and S2 normal heart sound present Objective Data Labs CBC & Chem 7: 04/28/22 07:20 04/28/22 07:20 Labs: Laboratory Results - last 24 hr 04/24/22 04/28/22 04/28/22 18:06 07:20 07:20 WBC 9.4 RBC 3.31 L Hgb 10.2 L Hct 31.2 L MCV 94.3 MCH 30.8 MCHC 32.7 RDW 15.3 Plt Count 180 MPV 11.0 Immature Gran % (Auto) 1.2 H Neut % (Auto) 74.2 H Lymph % (Auto) 11.[address] [place] % (Auto) 10.7 Eos % (Auto) 1.8 Baso % (Auto) 0.3 Lymph # (Auto) 1.[address] [place] # (Auto) 1.0 Eos # (Auto) 0.2 Baso # (Auto) 0.0 Abs Immat Gran (auto) 0.11 H Absolute Neuts (auto) 7.0 Absolute Nucleated RBC 0.000 Nucleated RBC % (auto) 0.0 Smear Tech's Comments VERIFIED Sodium 139 Potassium 4.3 D Chloride 99 Carbon Dioxide 26 Anion Gap 18 BUN 46 H Creatinine 2.67 H Estim Creat Clear Calc 14.9 Estimated GFR 17 Fasting Glucose 96 Calcium 8.5 Total Bilirubin 0.3 AST 17 ALT 7 Alkaline Phosphatase 75 Total Protein 5.1 L Albumin 2.9 L Ur Random Urea 147 Microbiology Microbiology Results: Microbiology 04/21/22 21:53 Blood - Venous Blood Culture - Final Escherichia coli Klebsiella pneumoniae 04/21/22 21:53 Blood - Venous Blood Culture - Final Escherichia coli Klebsiella pneumoniae 04/22/22 00:00 Urine clean catch - Urine mendoza top Urine Culture - Final Procedures Date of Service Date of Service: 04/28/22 Assessment & Plan Assessment and plan (1) TOMA (acute kidney injury): Status: Acute (2) CKD (chronic kidney disease) stage 3, GFR 30-59 ml/min: Status: Acute (3) Hypokalemia: Status: Acute Plan TOMA: w/u most c/w multifact ATN ( FENa > 1%) with slow recovery and still a ways to go REC: avoid NToxins, track renal func; montior UOP and K will follow with team Time Spent With Patient Time: Total time spent is greater than 50% in coordination of care (as documented) at patient's floor/unit and/or counseling patient: Progress Note: Quality Stroke Does the patient have a stroke diagnosis?: No
--- NOTE | 2022-04-28 10:13 | P.CDIC_ITS ---
CDI Concurrent Query Documentation Clarification: PHYSICIAN'S DOCUMENTATION REQUEST Date of Query: 04/28/22 1014 Patient Name: Keturah Howard Admit Date: 04/21/22 Dear Doctor, A review of the medical record indicates additional documentation may be needed. Please review below and update the documentation accordingly. Clinical Indicators: The diagnosis of [Diagnosis] was documented on [date] but is not consistently noted in subsequent documentation. Risk Factors/Clinical Indicators/Treatments Nephrology notes - 04/24 & 04/26 & 04/27 - TOMA most likely ATN in the setting of GNR sepsis/diverticulitis. Vibramycin/IV fluids WBC 15.6 RR 25/39 HR 113 Please clarify the following: Sepsis - resolved, poa, treating, ruled out or other: * [Diagnosis] was present on admission and is now resolved * [Diagnosis] was present on admission and is still being monitored, evaluated, or treated * [Diagnosis] was ruled out * [Diagnosis] is still a likely, suspected, probable diagnosis * Other (please specify) * Unable to determine Use of terms such as suspected, likely, concern for, or probable (associated with a specific diagnosis that is being evaluated, monitored, or treated as if it exists) are acceptable and can be coded in the inpatient setting, when documented at the time of discharge. Thank you, Sonia Blake [facility], CDIS Extension: [phone] Please use your independent medical judgment in providing your response. THIS QUERY IS PART OF THE PERMANENT MEDICAL RECORD Provider Response: Other Other Diagnosis: Sepsis was ruled out
--- NOTE | 2022-04-28 12:19 | MHC.CLN ---
F/U PT WITH INCREASED NUTRITION RISK R/T PRESSURE INJURY SEE FULL CLINICAL NUTRITION ASSESSMENT DATED 04/25/22 DIET RX: 2GM NA-APPROPRIATE RECOMMEND RE-STARTING ENSURE MAX BID TO INCREASE PO PROTEIN AND PROMOTE WOUND HEALING SUPP TO PROVIDE 300KCALS, 60G PROTEIN MONITOR PO INTAKE CLOSELY
--- NOTE | 2022-04-28 13:43 | HO.PM.IMPN ---
Subjective Subjective Date of Service: 04/28/22 Interval History: Doing well today. Up in chair with physical therapy Review of Systems Denies chest pain Denies shortness of breath Denies nausea vomiting diarrhea Denies fever chills Physical Exam Vital Signs: Vital Signs: Last Vital Signs Temp 98.3 F 04/28/22 12:00 Pulse 72 04/28/22 12:00 Resp 22 H 04/28/22 12:00 BP 142/65 H 04/28/22 12:00 Pulse Ox 98 04/28/22 12:00 O2 Del Method 04/28/22 12:00 O2 Flow Rate 2 04/28/22 12:00 FiO2 90 04/23/22 09:00 BMI result Body Mass Index 32.2 Const: Other: No acute distress Resp: Other: Clear but diminished at bases; fine crackles at bases Cardio: Other: No S4; positive S1-S2; no S3 murmurs or gallops GI: Other: Soft nontender nondistended normoactive bowel sounds Extrem: Other: Bilateral edema Objective Data Active Medications Acetaminophen (Acetaminophen 325 Mg Tablet) 650 mg PO Q6H PRN PRN Reason: Pain, Mild (Pain Scale 1-3) Albuterol/Ipratropium (Albuterol/Iprat 2.5/0.5mg 3 Ml Ampul.Neb) 3 ml INHALE RQ4H PRN PRN Reason: Shortness of Breath/Wheezing Last Admin: 04/23/22 02:44 Dose: 3 ml Documented By: OJ Atorvastatin Calcium (Atorvastatin Calcium 80 Mg Tablet) 80 mg PO DAILY@2100 [facility] Last Admin: 04/27/22 20:51 Dose: 80 mg Documented By: SUKHI Cyanocobalamin (Cyanocobalamin (Vitamin B-12) 1,000 Mcg/Ml Vial) 1,000 mcg IM DAILY [facility] Stop: 04/30/22 09:01 Last Admin: 04/28/22 08:00 Dose: 1,000 mcg Documented By: LEXUS Cyanocobalamin (Cyanocobalamin (Vitamin B-12) 1,000 Mcg Tablet) 1,000 mcg PO DAILY [facility] Metronidazole (Flagyl) 500 mg in 100 mls @ 100 mls/hr IV Q8H [facility] Last Infusion: 04/28/22 13:10 Dose: 0 mls/hr Documented By: LEXUS Levofloxacin (Levaquin) 500 mg in 100 mls @ 100 mls/hr IV Q48H [facility] Last Infusion: 04/27/22 10:36 Dose: 0 mls/hr Documented By: LEXUS Levothyroxine Sodium (Levothyroxine Sodium 112 Mcg Tablet) 112 mcg PO 0600 [facility] Last Admin: 04/28/22 04:20 Dose: 112 mcg Documented By: SUKHI Melatonin (Melatonin 3 Mg Tablet) 6 mg PO BEDTIME PRN PRN Reason: Insomnia Ondansetron HCl (Ondansetron Hcl 4 Mg/2 Ml Vial) 4 mg IVPUSH Q6H PRN PRN Reason: Nausea Last Admin: 04/26/22 20:51 Dose: 4 mg Documented By: CHRISTIANO Pharmacy Consult (Consult Rx Perform Med Rec) 1 each MISCELLANE ONCE PRN PRN Reason: Consult order Polyethylene Glycol (Polyethylene Glycol 3350 17 Gm Powd.Pack) 17 gm PO BEDTIME [facility] Last Admin: 04/27/22 20:51 Dose: Not Given Documented By: SUKHI Non-Admin Reason: Patient Refused Potassium Chloride (Potassium Chloride Er 20 Meq Tab.Er.Prt) 40 meq PO BID [facility] Last Admin: 04/28/22 08:00 Dose: 40 meq Documented By: LEXUS Senna (Sennosides 8.6 Mg Tablet) 17.2 mg PO BEDTIME PRN PRN Reason: Constipation Sodium Chloride (0.9 % Sodium Chloride Flush 3 Ml Syringe) 3 ml IVFLUSH QSHIFT [facility] Last Admin: 04/28/22 08:00 Dose: 3 ml Documented By: LEXUS Vitamin D (Cholecalciferol (Vitamin D3) 25 Mcg Tablet) 25 mcg PO DAILY [facility] Last Admin: 04/28/22 08:00 Dose: 25 mcg Documented By: LEXUS Labs CBC & Chem 7: 04/28/22 07:20 04/28/22 07:20 Labs: Laboratory Results - last 24 hr 04/24/22 04/28/22 04/28/22 18:06 07:20 07:20 MCV 94.3 MCH 30.8 MCHC 32.7 RDW 15.3 Plt Count 180 MPV 11.0 Immature Gran % (Auto) 1.2 H Neut % (Auto) 74.2 H Lymph % (Auto) 11.8 L [place] % (Auto) 10.7 Eos % (Auto) 1.8 Baso % (Auto) 0.3 Lymph # (Auto) 1.1 L [place] # (Auto) 1.0 Eos # (Auto) 0.2 Baso # (Auto) 0.0 Abs Immat Gran (auto) 0.11 H Absolute Neuts (auto) 7.0 Absolute Nucleated RBC 0.000 Nucleated RBC % (auto) 0.0 Smear Tech's Comments VERIFIED Anion Gap 18 Estim Creat Clear Calc 14.9 Estimated GFR 17 Fasting Glucose 96 Calcium 8.5 Total Bilirubin 0.3 AST 17 ALT 7 Alkaline Phosphatase 75 Total Protein 5.1 L Albumin 2.9 L Ur Random Urea 147 Assessment and Plan (1) E coli bacteremia: Status: Acute (2) Diverticulitis: Status: Acute (3) Acute on chronic heart failure with preserved ejection fraction (HFpEF): Status: Acute Plan 81yo F with CAD s/p PCI, LBBB, HTN, HLD, preDM, pancreatic cystic lesion s/p recent EUS presented with abd pain, found to have diverticulitis, Gm-neg bacteremia,? CHF exacerbation, atypical pneumonitis [place] [facility] [place] 04/22/22 due due to acute hypoxic respiratory failure requiring BiPAP stepped down to [facility] 04/23/22 on furosemide drip 1.EColi bacteremia: - levofloxacin(7) -, ID consult for duration 2.Acute diverticulitis -levofloxacin/metronidazole(7) -still incontinent of stool likely related antibiotics -C diff pending 3.Acute/chronic HFpEF -aggressively replete potassium -Lasix on hold -follow renals/divalents 4.ATN(in backdrop of GN bacteremia/diverticulitis) - change diuresis as per 3. -continue to treat bacteremia and diverticulitis 5. Hypertension -acceptable control off therapies -add back when clinically indicated 6. CAD -follow hemoglobin daily -if stable in a.m. will add back ASA 81 mg daily Pneumatic boots Will require ongoing hospitalization for IV antibiotics to treat bacteremia and diverticulitis Quality Stroke Does the patient have a stroke diagnosis?: No VTE Prior VTE?: No VTE Risk Level:: Medical - moderate - high VTE Device Contraindication: N/A - Device Ordered VTE Drug Contraindication: Treatment Not Indicated
--- NOTE | 2022-04-28 14:01 | P.PNCA_ITS ---
Subjective Subjective Date of Service: 04/28/22 <LEONIDAS Whatley - Last Filed: 04/28/22 14:48> 04/28/22 <Royal Lund MD - Last Filed: 04/28/22 16:38> Principal diagnosis: Sepsis, CHF, Elevated Troponin, TOMA, Diverticulitis <LEONIDAS Whatley - Last Filed: 04/28/22 14:48> Interval history: Seem at 1230. Today she is observed sitting up in recliner. Tells me that she is feeling blah today. She reports some lower abdominal discomfort from Diverticulitis. Breathing is improving and she tells me that her O2 dose has been decreased. Currently on O2 2.5 liters with nasal cannula. Does not wear O2 at home. Has known underlying COPD. Had body swelling on admit and she feel that it is much improved. Denies chest pains, palpitations, dizziness. Tele shows SR, rate 70-80s. <LEONIDAS Whatley - Last Filed: 04/28/22 14:48> Review of Systems Review of Systems As above <LEONIDAS Whatley - Last Filed: 04/28/22 14:48> Yes all other systems are reviewed and are negative <LEONIDAS Whatley - Last Filed: 04/28/22 14:48> Physical Exam Vital Signs: Last Vital Signs Temp 98.3 F 04/28/22 12:00 Pulse 72 04/28/22 12:00 Resp 22 H 04/28/22 12:00 BP 142/65 H 04/28/22 12:00 Pulse Ox 98 04/28/22 12:00 O2 Del Method 04/28/22 12:00 O2 Flow Rate 2 04/28/22 12:00 FiO2 90 04/23/22 09:00 BMI result Body Mass Index 32.2 <LEONIDAS Whatley Last Filed: 04/28/22 14:48> Const General: cooperative, healthy appearing, comfortable and no acute distress <LEONIDAS Whatley Last Filed: 04/28/22 14:48> Orientation/consciousness: patient oriented x3 <LEONIDAS Whatley - Last Filed: 04/28/22 14:48> Neck Neck: Yes normal visual inspection and Yes no JVD <Destiney Rasmussen NP - Last Filed: 04/28/22 14:48> Resp Effort & Inspection: normal respiratory effort <Destiney Rasmussen NP - Last Filed: 04/28/22 14:48> Auscultation: crackles (Rales/ crackles scattered in lower lung gutiérrez bilaterally, R seems > L) and no wheezes <Destiney Rasmussen [facility] - Last Filed: 04/28/22 14:48> Cardio Jugular venous distension: no JVD <Destiney Rasmussen [facility] - Last Filed: 04/28/22 14:48> Rate: regular rate <Destiney Rasmussen [facility] - Last Filed: 04/28/22 14:48> Rhythm: regular rhythm <Destiney Rasmussen [facility] - Last Filed: 04/28/22 14:48> Heart sounds: S1 normal heart sound present, S2 normal heart sound present, no gallops, no murmurs and no rubs <Destiney Rasmussen [facility] - Last Filed: 04/28/22 14:48> Neuro General: patient oriented x3 <Destiney Rasmussen [facility] - Last Filed: 04/28/22 14:48> Extrem General: Yes normal to inspection and No no pedal edema <Destiney Rasmussen NP - Last Filed: 04/28/22 14:48> Psych Appearance: grossly normal <Destiney Rasmussen [facility] Last Filed: 04/28/22 14:48> Mental Status: mental status grossly normal <Destiney Rasmussen [facility] - Last Filed: 04/28/22 14:48> Speech and movement: Normal speech and movement present <Destiney Rasmussen [facility] - Last Filed: 04/28/22 14:48> Objective Labs and Meds Result diagrams: : 04/28/22 07:20 04/28/22 07:20 <Destiney Rasmussen [facility] - Last Filed: 04/28/22 14:48> Lab results: Laboratory Results - last 24 hr 09/29/22 10/03/22 10/03/22 18:06 07:20 07:20 WBC 9.4 RBC 3.31 L Hgb 10.2 L Hct 31.2 L MCV 94.3 MCH 30.8 MCHC 32.7 RDW 15.3 Plt Count 180 MPV 11.0 Immature Gran % (Auto) 1.2 H Neut % (Auto) 74.2 H Lymph % (Auto) 11.8 L [place] % (Auto) 10.7 Eos % (Auto) 1.8 Baso % (Auto) 0.3 Lymph # (Auto) 1.1 L [place] # (Auto) 1.0 Eos # (Auto) 0.2 Baso # (Auto) 0.0 Abs Immat Gran (auto) 0.11 H Absolute Neuts (auto) 7.0 Absolute Nucleated RBC 0.000 Nucleated RBC % (auto) 0.0 Smear Tech's Comments VERIFIED Sodium 139 Potassium 4.3 D Chloride 99 Carbon Dioxide 26 Anion Gap 18 BUN 46 H Creatinine 2.67 H Estim Creat Clear Calc 14.9 Estimated GFR 17 Fasting Glucose 96 Calcium 8.5 Total Bilirubin 0.3 AST 17 ALT 7 Alkaline Phosphatase 75 Total Protein 5.1 L Albumin 2.9 L Ur Random Urea 147 <LEONIDAS Whatley - Last Filed: 04/28/22 14:48> Progress Note: A&P Assessment and plan (1) Acute on chronic heart failure with preserved ejection fraction (HFpEF): Status: Acute <LEONIDAS Whatley - Last Filed: 04/28/22 14:48> Assessment and Plan: Admit with dizziness, sob, atypical CP. Findings of HFpEF, Diverticulitis, GM Neg sepsis, Septic ATN, PNA. Echo showed EF 60-65%, no regional WMA, mild increase in LV thickness. She was diuresed with IV Lasix with improvement in BNP from 305 on admit down to 132 on 04/25. She tells me that her breathing and edema are much improved. She is still wearing supplemental O2 at 2.5 liters, with sat 98%. No reported PND, sleeping with HOB mildly elevated. Does not appear fluid overloaded on exam, however lungs do have coarse rales noted. She is not on Diuretics any longer and does not take them at home. Fluid balance close to even this admit. Recommend CXR today. Will check BNP. If no findings of HF, then we will sign off and follow only as needed. Ongoing management of her noncardiac issues by hospitalist, nephrology, ID. <LEONIDAS Whatley - Last Filed: 04/28/22 14:48> Admit with dizziness, sob, atypical CP. Findings of HFpEF, Diverticulitis, GM Neg sepsis, Septic ATN, PNA. Echo showed EF 60-65%, no regional WMA, mild increase in LV thickness. She was diuresed with IV Lasix with improvement in BNP from 305 on admit down to 132 on 04/25. She tells me that her breathing and edema are much improved. She is still wearing supplemental O2 at 2.5 liters, with sat 98%. No reported PND, sleeping with HOB mildly elevated. Does not appear fluid overloaded on exam, however lungs do have coarse rales noted. She is not on Diuretics any longer and does not take them at home. Fluid balance close to even this admit. Recommend CXR today. Will check BNP. If no findings of HF, then we will sign off and follow only as needed. Ongoing management of her noncardiac issues by hospitalist, nephrology, ID. Patient seen and examined. Case discussed with Destiney Rasmussen. Agree with above. Patient does appear to have any signs of heart failure at this point time. Heart failure syndrome appears to have resolved and probably induced by acute medical illness and maybe underlying myocardial ischemia. See below. Continue blood pressure control. Start metoprolol to reduce ischemic burden on the heart. Continue Norvasc therapy. Avoidance of salt loading was discussed. No need for additional diuretics at this point in time. <Royal Lund MD - Last Filed: 04/28/22 16:38> (2) Acute respiratory failure with hypoxia: Status: Acute <LEONIDAS Whatley - Last Filed: 04/28/22 14:48> Assessment and Plan: As above. Continue supportive care. Incentive spirometry. <Royal Lund MD - Last Filed: 04/28/22 16:38> (3) Coronary artery disease: Status: Acute <LEONIDAS Whatley - Last Filed: 04/28/22 14:48> Assessment and Plan: Hx of CAD with LAD PCI. Follows with Dr Vaughn for cardiology. Troponin mildy elevated this admit, up to 72. Atypical CP on admit. EKG nondiagnostic for ischemia due to chronic LBBB. Troponin elevation could be related to her Acute on chronic kidney disease. CT chest done this admit does show 3 vessel CAD, pulmonary edema, small bilateral effusion, mild emphysema. When appropriate, plan restart of aspirin and statin. She will need ischemic evaluation as outpt. Recommend outpt pharmacological nuclear stress test. On discharge she will follow with her central office installer. <LEONIDAS Whatley - Last Filed: 04/28/22 14:48> Hx of CAD with LAD PCI. Follows with Dr Vaughn for cardiology. Troponin mildy elevated this admit, up to 72. Atypical CP on admit. EKG nondiagnostic for ischemia due to chronic LBBB. Troponin elevation could be related to her Acute on chronic kidney disease. CT chest done this admit does show 3 vessel CAD, pulmonary edema, small bilateral effusion, mild emphysema. When appropriate, sunita n restart of aspirin and statin. She will need ischemic evaluation as outpt. Recommend outpt pharmacological nuclear stress test. On discharge she will follow with her central office installer. Patient currently not having any active chest pain syndrome. However CT scan shows dense calcification all 3 coronary arteries with underlying left bundle- branch block and elevated troponin in the setting of acute medical illness most likely suggestive demand ischemia. She should undergo pharmacological stress te sting as outpatient with her own central office installer Dr. Vaughn at [facility]. This was discussed with her. Continue low-dose aspirin therapy. Continue high-intensity statin therapy. Add metoprolol to reduce myocardial ischemic burden. Continue Norvasc therapy. Will sign of the case. Thank you for allowing us to partake in the care <Royal Lund MD - Last Filed: 04/28/22 16:38> (4) Hypertension: Status: Acute <LEONIDAS Whatley - Last Filed: 04/28/22 14:48> Assessment and Plan: Hx of HTN and normally on Losartan, amlodipine and hydralazine at home. Treated for sepsis this admit and meds held. Overall condition improving. BP 142/67 this am. Will start on Metoprolol xl 25mg daily for her HTN and for CAD. - unclear why home list does not include BB. If needed, Amlodipine can then be restarted. <LEONIDAS Whatley - Last Filed: 04/28/22 14:48> (5) CKD (chronic kidney disease) stage 3, GFR 30-59 ml/min: Status: Acute <LEONIDAS Whatley - Last Filed: 04/28/22 14:48> Assessment and Plan: Hx of CKD, then treated for TOMA this admit. Creatinine is improving down to 2.67 today, from 3's. Neprhology following. She is off her usual home Losartan. <LEONIDAS Whatley - Last Filed: 04/28/22 14:48> (6) TOMA (acute kidney injury): Status: Acute <LEONIDAS Whatley - Last Filed: 04/28/22 14:48> Time Spent With Patient Time: Total time spent is greater than 50% in coordination of care (as documented) at patient's floor/unit and/or counseling patient: <LEONIDAS Whatley - Last Filed: 04/28/22 14:48> Progress Note: Quality Stroke Does the patient have a stroke diagnosis?: No <LEONIDAS Whatley Last Filed: 04/28/22 14:48> Procedures Date of Service Date of Service: 04/28/22 <LEONIDAS Whatley - Last Filed: 04/28/22 14:48>
--- NOTE | 2022-04-28 14:14 | PM.IDPN ---
Subjective Subjective Date of Service: 04/28/22 Critical Care Time (minutes): 15 Comment: she still has stool incontinence day 02/02 Levaquin and flagyl Objective Data Labs CBC & Chem 7: 04/29/22 06:06 04/30/22 12:01 Labs: Laboratory Results - last 24 hr 04/24/22 04/28/22 04/28/22 18:06 07:20 07:20 WBC 9.4 RBC 3.31 L Hgb 10.2 L Hct 31.2 L MCV 94.3 MCH 30.8 MCHC 32.7 RDW 15.3 Plt Count 180 MPV 11.0 Immature Gran % (Auto) 1.2 H Neut % (Auto) 74.2 H Lymph % (Auto) 11.8 L [place] % (Auto) 10.7 Eos % (Auto) 1.8 Baso % (Auto) 0.3 Lymph # (Auto) 1.1 L [place] # (Auto) 1.0 Eos # (Auto) 0.2 Baso # (Auto) 0.0 Abs Immat Gran (auto) 0.11 H Absolute Neuts (auto) 7.0 Absolute Nucleated RBC 0.000 Nucleated RBC % (auto) 0.0 Smear Tech's Comments VERIFIED Sodium 139 Potassium 4.3 D Chloride 99 Carbon Dioxide 26 Anion Gap 18 BUN 46 H Creatinine 2.67 H Estim Creat Clear Calc 14.9 Estimated GFR 17 Fasting Glucose 96 Calcium 8.5 Total Bilirubin 0.3 AST 17 ALT 7 Alkaline Phosphatase 75 Total Protein 5.1 L Albumin 2.9 L Ur Random Urea 147 Microbiology Microbiology Results: Microbiology 04/21/22 21:53 Blood - Venous Blood Culture - Final Escherichia coli Klebsiella pneumoniae 04/21/22 21:53 Blood - Venous Blood Culture - Final Escherichia coli Klebsiella pneumoniae 04/22/22 00:00 Urine clean catch - Urine mendoza top Urine Culture - Final Physical Exam Vital Signs: Vital Signs: Last Vital Signs Temp 98.3 F 04/28/22 12:00 Pulse 72 04/28/22 12:00 Resp 22 H 04/28/22 12:00 BP 142/65 H 04/28/22 12:00 Pulse Ox 98 04/28/22 12:00 O2 Del Method 04/28/22 12:00 O2 Flow Rate 2 04/28/22 12:00 FiO2 90 04/23/22 09:00 BMI result Body Mass Index 32.2 Resp: Effort & Inspection: normal respiratory effort Cardio: Rate: regular rate Rhythm: regular rhythm GI: Palpation (GI): Soft to palpation and nontender Assessment and Plan Assessment and plan (1) Diverticulitis: Status: Resolved Time Spent With Patient Time: Total time spent is greater than 50% in coordination of care (as documented) at patient's floor/unit and/or counseling patient:
--- NOTE | 2022-04-28 16:42 | MHC.CM.PN ---
Female 81 DX Diverticulitis CP elevated trop. Met with patient today. She is interested in [facility]. They are reviewing her case. [facility] and [facility] are also following. They both have pulmonary rehab programs. [facility] does not have a Pulmonary rehab. Patient will transport via BLS.
[2022-04-28 16:43] LABS: B Type Natriuretic Peptide 32 pg/mL (<100)
[2022-04-28 19:53] LABS: CDiff Gene PCR NEGATIVE (Negative)
[2022-04-28] MEDS: Atorvastatin Calcium 80 MG TABLET PO (20:27)
[2022-04-29 04:00] VITALS: BP 148/65; PULSE 88; RESP 20; TEMP 36.6; O2SAT 94
[2022-04-29] MEDS: metroNIDAZOLE/NS 500 MG/100 ML PIGGYBACK 100 MG IV ×3 (04:15→21:08)
[2022-04-29] MEDS: Levothyroxine Sodium 112 MCG TABLET PO (05:21)
[2022-04-29] MEDS: Acetaminophen 325 MG TABLET 650 MG PO (05:26)
[2022-04-29 06:45] LABS: MANUAL DIFF FLAG NO
[2022-04-29 07:20] VITALS: BP 137/60; PULSE 66; RESP 18; TEMP 36.1; O2SAT 96
[2022-04-29 07:41] LABS: Alanine Aminotransferase < 6 U/L (0-31); Albumin Level 2.9 g/dL (3.5-5.0); Alkaline Phosphatase 80 U/L (39-117); Aspartate Amino Transferase 14 U/L (5-31); Bilirubin Total 0.4 mg/dL (0.0-1.0); Blood Urea Nitrogen 48 mg/dL (9-16); Calcium 8.3 mg/dL (8.4-10.2); Creatinine Clr Calc Pharmacy 16.7; Estimated Glomerular Filt Rate 19; Glucose Fasting 91 mg/dL (60-99)
[2022-04-29 07:55] LABS: Anion Gap 19 (12-20); Carbon Dioxide 24 mmol/L (22-29); Chloride 101 mmol/L (96-108); Potassium 5.3 mmol/L (3.3-5.1); Sodium 139 mmol/L (135-145)
[2022-04-29 09:02] LABS: Basophils Percent Auto 0.4 % (0-2); Eosinophils Absolute Auto 0.2 X10*3/uL (0.0-0.4); Eosinophils Percent Auto 1.5 % (0-4); Hematocrit 32.4 % (37.0-47.0); Hemoglobin 10.3 g/dl (12.0-16.0); Imm Gran Abs Auto 0.12 X10*3/uL (0.00-0.03); Imm Gran Pct Auto 1.1 % (0.0-0.4); Lymphocytes Absolute Auto 1.1 X10*3/uL (1.2-4.9); Lymphocytes Percent Auto 10.2 % (20-40); Mean Corpuscular HGB Conc 31.8 g/dl (31.0-35.0); Mean Corpuscular Volume 94.5 fL (80.0-98.0); Monocytes Absolute Auto 1.1 X10*3/uL (0.1-1.2); Monocytes Percent Auto 9.6 % (2-11); Neutrophils Absolute Auto 8.6 x10*3/uL (2.0-8.3); Neutrophils Percent Auto 77.2 % (45-73); Platelet Count 218 X10*3/uL (160-400); Red Blood Count 3.43 X10*6/uL (4.20-5.50); Red Cell Distribution Width 15.5 % (11.0-16.0); White Blood Count 11.1 X10*3/uL (4.8-10.8)
[2022-04-29] MEDS: 0.9 % Sodium Chloride Flush 3 ML SYRINGE IVFLUSH ×3 (09:13→23:05)
[2022-04-29] MEDS: Potassium Chloride ER 20 MEQ TAB.ER.PRT 40 MEQ PO (09:13)
[2022-04-29] MEDS: Cyanocobalamin (Vitamin B-12) 1,000 MCG/ML VIAL 1000 MCG IM (09:14)
[2022-04-29] MEDS: levoFLOXacin/D5W 500 MG/100 ML PIGGYBACK 100 MG IV (09:14)
[2022-04-29] MEDS: Cholecalciferol (Vitamin D3) 25 MCG TABLET PO (09:14)
--- NOTE | 2022-04-29 10:27 | P.PNNP_ITS ---
Subjective Subjective Date of Service: 04/29/22 Principal diagnosis: Sepsis, CHF, Elevated Troponin, TOMA, Diverticulitis Interval history: Seen and examined, events noted Physical Exam Vital Signs: Vital Signs: Last Vital Signs Temp 97 F 04/29/22 07:20 Pulse 66 04/29/22 07:20 Resp 18 04/29/22 07:20 BP 137/60 04/29/22 07:20 Pulse Ox 96 04/29/22 07:20 O2 Del Method 04/29/22 07:20 O2 Flow Rate 2 04/29/22 07:20 FiO2 90 04/23/22 09:00 BMI result Body Mass Index 32.2 Neck: Neck: Yes normal visual inspection and Yes no JVD Resp: Auscultation: clear to auscultation bilaterally Cardio: Rate: regular rate Rhythm: regular rhythm Heart sounds: S1 normal heart sound present and S2 normal heart sound present Objective Data Labs CBC & Chem 7: 04/29/22 06:06 04/29/22 06:06 Labs: Laboratory Results - last 24 hr 04/28/22 04/28/22 04/29/22 15:35 18:10 06:06 WBC 11.1 H RBC 3.43 L Hgb 10.3 L Hct 32.4 L MCV 94.5 MCH 30.0 MCHC 31.8 RDW 15.5 Plt Count 218 MPV 11.0 Immature Gran % (Auto) 1.1 H Neut % (Auto) 77.2 H Lymph % (Auto) 10.2 L [place] % (Auto) 9.6 Eos % (Auto) 1.5 Baso % (Auto) 0.4 Lymph # (Auto) 1.1 L [place] # (Auto) 1.1 Eos # (Auto) 0.2 Baso # (Auto) 0.0 Abs Immat Gran (auto) 0.12 H Absolute Neuts (auto) 8.6 H Absolute Nucleated RBC 0.000 Nucleated RBC % (auto) 0.0 Sodium Potassium Chloride Carbon Dioxide Anion Gap BUN Creatinine Estim Creat Clear Calc Estimated GFR Fasting Glucose Calcium Total Bilirubin AST ALT Alkaline Phosphatase B-Natriuretic Peptide 32 Total Protein Albumin C. difficile Tox B Gene NEGATIVE 04/29/22 06:06 WBC RBC Hgb Hct MCV MCH MCHC RDW Plt Count MPV Immature Gran % (Auto) Neut % (Auto) Lymph % (Auto) [place] % (Auto) Eos % (Auto) Baso % (Auto) Lymph # (Auto) [place] # (Auto) Eos # (Auto) Baso # (Auto) Abs Immat Gran (auto) Absolute Neuts (auto) Absolute Nucleated RBC Nucleated RBC % (auto) Sodium 139 Potassium 5.3 H D Chloride 101 Carbon Dioxide 24 Anion Gap 19 BUN 48 H Creatinine 2.39 H Estim Creat Clear Calc 16.7 Estimated GFR 19 Fasting Glucose 91 Calcium 8.3 L Total Bilirubin 0.4 AST 14 ALT < 6 Alkaline Phosphatase 80 B-Natriuretic Peptide Total Protein 5.0 L Albumin 2.9 L C. difficile Tox B Gene Microbiology Microbiology Results: Microbiology 04/21/22 21:53 Blood - Venous Blood Culture - Final Escherichia coli Klebsiella pneumoniae 04/21/22 21:53 Blood - Venous Blood Culture - Final Escherichia coli Klebsiella pneumoniae 04/22/22 00:00 Urine clean catch - Urine mendoza top Urine Culture - Final Procedures Date of Service Date of Service: 04/29/22 Assessment & Plan Assessment and plan (1) TOMA (acute kidney injury): Status: Acute (2) CKD (chronic kidney disease) stage 3, GFR 30-59 ml/min: Status: Acute (3) Hypokalemia: Status: Acute Plan TOMA: w/u most c/w multifact ATN ( FENa > 1%) cont slow recovery and still a ways to go REC: K suppl d/c for now; avoid NToxins, track renal func; montior UOP and K will follow with team Time Spent With Patient Time: Total time spent is greater than 50% in coordination of care (as documented) at patient's floor/unit and/or counseling patient: Progress Note: Quality Stroke Does the patient have a stroke diagnosis?: No
[2022-04-29 11:30] VITALS: BP 112/58; PULSE 61; RESP 18; TEMP 36.6; O2SAT 95
[2022-04-29 14:47] LABS: Anti Nuclear Antibody Screen POSITIVE (NEGATIVE)
--- NOTE | 2022-04-29 14:55 | HO.PM.IMPN ---
Subjective Subjective Date of Service: 04/29/22 Interval History: No acute issues overnight Review of Systems Denies chest pain Denies shortness of breath Denies nausea vomiting diarrhea Denies fever chills Physical Exam Vital Signs: Vital Signs: Last Vital Signs Temp 98 F 04/29/22 11:30 Pulse 61 04/29/22 11:30 Resp 18 04/29/22 11:30 BP 112/58 L 04/29/22 11:30 Pulse Ox 95 04/29/22 11:30 O2 Del Method 04/29/22 11:30 O2 Flow Rate 2 04/29/22 11:30 FiO2 90 04/23/22 09:00 BMI result Body Mass Index 32.2 Const: Other: No acute distress Resp: Other: Clear but diminished at bases; fine crackles at bases Cardio: Other: No S4; positive S1-S2; no S3 murmurs or gallops GI: Other: Soft nontender nondistended normoactive bowel sounds Extrem: Other: Bilateral edema Objective Data Active Medications Acetaminophen (Acetaminophen 325 Mg Tablet) 650 mg PO Q6H PRN PRN Reason: Pain, Mild (Pain Scale 1-3) Last Admin: 04/29/22 05:26 Dose: 650 mg Documented By: MISSY Atorvastatin Calcium (Atorvastatin Calcium 80 Mg Tablet) 80 mg PO DAILY@2100 AGATA Last Admin: 04/28/22 20:27 Dose: 80 mg Documented By: MISSY Cyanocobalamin (Cyanocobalamin (Vitamin B-12) 1,000 Mcg/Ml Vial) 1,000 mcg IM DAILY [facility] Stop: 04/30/22 09:01 Last Admin: 04/29/22 09:14 Dose: 1,000 mcg Documented By: DHARA Cyanocobalamin (Cyanocobalamin (Vitamin B-12) 1,000 Mcg Tablet) 1,000 mcg PO DAILY [facility] Metronidazole (Flagyl) 500 mg in 100 mls @ 100 mls/hr IV Q8H [facility] Last Infusion: 04/29/22 12:56 Dose: 0 mls/hr Documented By: JAYY Levofloxacin (Levaquin) 500 mg in 100 mls @ 100 mls/hr IV Q48H [facility] Last Infusion: 04/29/22 10:48 Dose: 100 mls/hr Documented By: DHARA Levothyroxine Sodium (Levothyroxine Sodium 112 Mcg Tablet) 112 mcg PO 0600 [facility] Last Admin: 04/29/22 05:21 Dose: 112 mcg Documented By: MISSY Melatonin (Melatonin 3 Mg Tablet) 6 mg PO BEDTIME PRN PRN Reason: Insomnia Ondansetron HCl (Ondansetron Hcl 4 Mg/2 Ml Vial) 4 mg IVPUSH Q6H PRN PRN Reason: Nausea Last Admin: 04/26/22 20:51 Dose: 4 mg Documented By: CHRISTIANO Pharmacy Consult (Consult Rx Perform Med Rec) 1 each MISCELLANE ONCE PRN PRN Reason: Consult order Polyethylene Glycol (Polyethylene Glycol 3350 17 Gm Powd.Pack) 17 gm PO BEDTIME [facility] Last Admin: 04/28/22 20:30 Dose: Not Given Documented By: MISSY Non-Admin Reason: Patient Refused Senna (Sennosides 8.6 Mg Tablet) 17.2 mg PO BEDTIME PRN PRN Reason: Constipation Sodium Chloride (0.9 % Sodium Chloride Flush 3 Ml Syringe) 3 ml IVFLUSH QSHIFT [facility] Last Admin: 04/29/22 09:13 Dose: 3 ml Documented By: DHARA Vitamin D (Cholecalciferol (Vitamin D3) 25 Mcg Tablet) 25 mcg PO DAILY [facility] Last Admin: 04/29/22 09:14 Dose: 25 mcg Documented By: DHARA Labs CBC & Chem 7: 04/29/22 06:06 04/29/22 06:06 Labs: Laboratory Results - last 24 hr 04/24/22 04/28/22 04/28/22 11:08 15:35 18:10 MCV MCH MCHC RDW Plt Count MPV Immature Gran % (Auto) Neut % (Auto) Lymph % (Auto) [place] % (Auto) Eos % (Auto) Baso % (Auto) Lymph # (Auto) [place] # (Auto) Eos # (Auto) Baso # (Auto) Abs Immat Gran (auto) Absolute Neuts (auto) Absolute Nucleated RBC Nucleated RBC % (auto) Anion Gap Estim Creat Clear Calc Estimated GFR Fasting Glucose Calcium Total Bilirubin AST ALT Alkaline Phosphatase B-Natriuretic Peptide 32 Total Protein Albumin ELIZABETH Screen POSITIVE A ELIZABETH Titer 1:160 H ELIZABETH Pattern A C. difficile Tox B Gene NEGATIVE 04/29/22 04/29/22 06:06 06:06 MCV 94.5 MCH 30.0 MCHC 31.8 RDW 15.5 Plt Count 218 MPV 11.0 Immature Gran % (Auto) 1.1 H Neut % (Auto) 77.2 H Lymph % (Auto) 10.2 L [place] % (Auto) 9.6 Eos % (Auto) 1.5 Baso % (Auto) 0.4 Lymph # (Auto) 1.1 L [place] # (Auto) 1.1 Eos # (Auto) 0.2 Baso # (Auto) 0.0 Abs Immat Gran (auto) 0.12 H Absolute Neuts (auto) 8.6 H Absolute Nucleated RBC 0.000 Nucleated RBC % (auto) 0.0 Anion Gap 19 Estim Creat Clear Calc 16.7 Estimated GFR 19 Fasting Glucose 91 Calcium 8.3 L Total Bilirubin 0.4 AST 14 ALT < 6 Alkaline Phosphatase 80 B-Natriuretic Peptide Total Protein 5.0 L Albumin 2.9 L ELIZABETH Screen ELIZABETH Titer ELIZABETH Pattern C. difficile Tox B Gene Assessment and Plan (1) E coli bacteremia: Status: Acute (2) CKD (chronic kidney disease) stage 3, GFR 30-59 ml/min: Status: Acute Plan 81yo F with CAD s/p PCI, LBBB, HTN, HLD, preDM, pancreatic cystic lesion s/p recent EUS presented with abd pain, found to have diverticulitis, Gm-neg bacteremia,? CHF exacerbation, atypical pneumonitis admitted to [facility], transferred to ICU 04/22/22 due due to acute hypoxic respiratory failure requiring BiPAP stepped down to C 04/23/22 1.EColi bacteremia: - levofloxacin(02/06) -, ID ok for po 2.Acute diverticulitis -levofloxacin/metronidazole(7) -still incontinent of stool likely related antibiotics -C diff neg 3.Acute/chronic HFpEF -aggressively replete potassium -Lasix on hold -follow renals/divalents 4.ATN(in backdrop of GN bacteremia/diverticulitis) - no further diuresis -creatinine slowly trending downward 5. Hypertension -acceptable control off therapies -add back when clinically indicated 6. CAD -follow hemoglobin daily -if stable in a.m. will add back ASA 81 mg daily Pneumatic boots Will require ongoing hospitalization for IV antibiotics to treat bacteremia and diverticulitis Quality Stroke Does the patient have a stroke diagnosis?: No VTE Prior VTE?: No VTE Risk Level:: Medical - moderate - high VTE Device Contraindication: N/A - Device Ordered VTE Drug Contraindication: Treatment Not Indicated
[2022-04-29 15:29] VITALS: BP 143/63; PULSE 66; RESP 18; TEMP 36.1
[2022-04-29 19:36] VITALS: BP 136/60; PULSE 85; RESP 18; TEMP 36.3; O2SAT 99
[2022-04-29] MEDS: Atorvastatin Calcium 80 MG TABLET PO (21:08)
[2022-04-29 23:37] VITALS: BP 142/60; PULSE 70; RESP 18; TEMP 37.2; O2SAT 99
[2022-04-30 04:00] VITALS: BP 141/63; PULSE 68; RESP 20; TEMP 37.1; O2SAT 96
[2022-04-30] MEDS: metroNIDAZOLE/NS 500 MG/100 ML PIGGYBACK 100 MG IV ×2 (04:02→13:23)
[2022-04-30] MEDS: Levothyroxine Sodium 112 MCG TABLET PO (05:39)
[2022-04-30 07:31] VITALS: BP 161/70; PULSE 67; RESP 20; TEMP 35.9; O2SAT 97
[2022-04-30] MEDS: Cholecalciferol (Vitamin D3) 25 MCG TABLET PO (09:43)
[2022-04-30] MEDS: Aspirin Enteric Coated 81 MG TABLET.DR PO (09:43)
[2022-04-30] MEDS: Cyanocobalamin (Vitamin B-12) 1,000 MCG/ML VIAL 1000 MCG IM (09:43)
[2022-04-30] MEDS: 0.9 % Sodium Chloride Flush 3 ML SYRINGE IVFLUSH (09:44)
[2022-04-30] MEDS: Acetaminophen 325 MG TABLET 650 MG PO (09:47)
[2022-04-30 10:26] VITALS: BP 161/70; PULSE 67; O2SAT 97
[2022-04-30 10:57] LABS: Parietal Cell Antibody <=20.0 Unit (<=20.0)
[2022-04-30 11:11] VITALS: BP 159/72; PULSE 66; RESP 18; TEMP 36.6; O2SAT 97
[2022-04-30 11:58] VITALS: BP 159/72; PULSE 66; RESP 18; TEMP 36.6; O2SAT 97
--- NOTE | 2022-04-30 12:07 | MHC.CM.PN ---
Patient has been medically cleared for dc to Acute Rehab today. Patient will dc to [facility] today at 4 PM via [facility]. Patient is aware of and in agreement with the dc plan. Patient informed her family herself of the dc plan. IMM addressed at bedside with Patient and original was given to her and a copy has been placed on the chart.
[2022-04-30 12:44] LABS: Anion Gap 21 (12-20); Blood Urea Nitrogen 42 mg/dL (9-16); Carbon Dioxide 22 mmol/L (22-29); Chloride 101 mmol/L (96-108); Creatinine Clr Calc Pharmacy 18.6; Estimated Glomerular Filt Rate 22; Potassium 5.3 mmol/L (3.3-5.1); Sodium 139 mmol/L (135-145)
--- NOTE | 2022-04-30 13:44 | P.DS_ITS ---
DS: Providers Provider Date of Service: 04/30/22 Date of admission: 04/21/22 23:37 Date of discharge: 04/30/22 Primary care physician: Nehal Gimenez MD Consults: 04/21/22 23:37 Consult to Cardiology Routine Consulting Provider: Eduard Kennedy Reason for consultation: elevated troponins 04/21/22 23:38 Consult to Gastroenterology Routine Consulting Provider: Fadi Bojorquez Reason for consultation: guaiac positive stool 04/22/22 15:25 Consult to Infectious Diseases Routine Consulting Provider: Sirena Cain Reason for consultation: PCT 178. GNR bacteremia, diverticultitis, atypical pnuemonitis 04/24/22 07:46 Consult to Nephrology Routine Consulting Provider: Tevin Paez Reason for consultation: TOMA, CHF DS: Diagnosis Discharge Diagnosis (1) E coli bacteremia: Status: Acute (2) CKD (chronic kidney disease) stage 3, GFR 30-59 ml/min: Status: Acute DS: Summary Hospital Course Hospital Course: 81-year-old female with a past medical history of hypertension, hyperlipidemia, Pre DM, CAD status post stent, pancreatic cystic lesion -recent EUS, left bundle-branch block presented to the hospital today with a chief complaint of abdominal pain.? Patient reports that since last Thursday she has been having episodes of abdominal pain located in the lower abdomen, crampy in nature, 10/10 intensity, has been having nausea and vomiting also had soft stools.? Denies any numbness or tingling.? Mentioned that yesterday she had couple of episodes of chest discomfort- currently resolved.? Denies any palpitations, shortness of breath.? ER course: Per ER team patient EKG was nonischemic but noted to have elevated troponins; cardiology was notified - recommended no acute intervention; CT scan showed div erticulitis given antibiotics. Blood cultures grew E coli. 48 hours after admission patient developed acute onset of shortness of breath. She was diuresed and placed on BiPAP and spent 24 hours in the ICU. Subsequently weaned off the BiPAP and transferred to telemetry. She was seen in consultation by Cardiology who recommended ongoing diuresis. She was also seen by Nephrology who felt rising creatinine was multifactorial ATN. The remainder of her hospital stay she was diuresed potassium was repleted and creatinine is slowly returning to baseline. At this point id has recommended 2 weeks of p.o. Levaquin to treat her E coli bacteremia. Diuretics have been stopped as per Nephrology; she is to follow-up as outpatient. She did have a brief episode of urinary retention which required Corral catheter placement. She underwent a voiding trial 24 hours before DC without issue. At this point in time she is medically acceptable transfer to acute rehab Time Spent with Patient Time attestation: Total time spent providing and/or coordinating discharge services: Discharge coordination time: Greater than 30 minutes Quality: Safe Use of Opioids Does Pt have an Active Cancer Diagnosis on the Problem List?: No Quality: Stroke Does the patient have a stroke diagnosis?: No Physical Exam Vital Signs: Vital Signs: Last Vital Signs Temp 97.8 F 04/30/22 11:58 Pulse 66 04/30/22 11:58 Resp 18 04/30/22 11:58 BP 159/72 H 04/30/22 11:58 Pulse Ox 97 04/30/22 11:58 O2 Del Method 04/30/22 11:58 O2 Flow Rate 2 04/30/22 07:31 FiO2 90 04/23/22 09:00 BMI result Body Mass Index 32.2 Const: Other: No acute distress Resp: Other: Clear but diminished at bases; fine crackles at bases Cardio: Other: No S4; positive S1-S2; no S3 murmurs or gallops GI: Other: Soft nontender nondistended normoactive bowel sounds Extrem: Other: Bilateral edema DS: Data Data Completed and Pending Completed studies during hospitalization [Text1]: Procedures Excision of Descending Colon, Via Natural or Artificial Opening Endoscopic, Diagnostic (07/12/20) Labs on day of discharge: Laboratory Results - last 24 hr 04/23/22 04/24/22 04/30/22 16:05 11:08 12:01 Sodium 139 Potassium 5.3 H Chloride 101 Carbon Dioxide 22 Anion Gap 21 H BUN 42 H Creatinine 2.14 H Estim Creat Clear Calc 18.6 Estimated GFR 22 ELIZABETH Screen POSITIVE A ELIZABETH Titer 1:160 H ELIZABETH Pattern A Anti-Parietal Cell Ab <=20.0 Discharge Plan Discharge Anticipated Discharge Date/Time: 04/30/22 13:38 Patient Disposition: Xfer Inpatient Rehab Fac Discharge Diagnosis: Diverticulitis Referrals: [facility] [Other] - 1 Week Nehal Gimenez MD [Primary Care Provider] - 1 Week Discharge Medications: New aspirin 81 mg Tablet,Delayed Release (Dr/Ec) 81 mg PO DAILY Qty: 30 0RF levofloxacin 500 mg tablet 500 mg PO DAILY 14 Days Qty: 14 0RF Continued prednisone 5 mg tablet See Rx Instructions .ROUTE .COMPLEX Label Comments: PT STARTED THE Q2D DOSING WEDNESDAY 04/18 Rx Instructions: TAKE 1 TABLET BY MOUTH ONCE DAILY FOR 7 DAYS THEN TAKE 1 TABLET EVERY 48 HOURS FOR 8 DAYS omeprazole 20 mg capsule,delayed release(DR/EC) 1 cap PO DAILY losartan 100 mg tablet 1 tab PO DAILY polyethylene glycol 3350 [Miralax] 17 gram Powder In Packet 17 g PO BEDTIME cholecalciferol (vitamin D3) [Vitamin D3] 25 mcg (1,000 unit) Capsule 25 mcg PO DAILY levothyroxine 112 mcg tablet 112 mcg PO DAILY aspirin [Adult Low Dose Aspirin] 81 mg tablet,delayed release (DR/EC) 81 mg PO DAILY amlodipine 10 mg tablet 10 mg PO BEDTIME rosuvastatin 40 mg tablet 40 mg PO DAILY hydralazine 25 mg tablet 25 mg PO BID Discharge Orders: Discharge Order (Routine); Ordered 04/30/22 Ordered By: Jaxson Ireland Diet: Advance to usual diet Activity on Discharge: As tolerated Stand Alone Forms: Patient Portal Discharge page Care Plan Goals: Complete 14 days of Levaquin to treat E coli bacteremia Health Concerns: Continue other regimens as outlined Plan of Treatment: Changes as per receiving facility Assessment: See discharge summary
[2022-04-30 14:10] LABS: COVID-19 Test Negative (Negative); IDNOW Serial# 9DB6401D
[2022-04-30 15:10] VITALS: BP 142/48; PULSE 68; RESP 18; TEMP 36.7; O2SAT 98
== END 2022-04-30 17:15 | DRG 391 ==
LOC: HO.ED 21:55 → HO.EDOVER 23:42 → HO.IMC 04-22 14:35 → HO.ICU 04-23 03:36 → HO.IMC 04-23 15:30
PROVIDERS: Family Medicine; Internal Medicine Gastroenterology; Internal Medicine Nephrology; Internal Medicine Pulmonary Disease; Nurse Practitioner Family; Physician Assistant Medical; Registered Nurse Community Health; Admitting Provider Hospitalist; Emergency Provider Student in an Organized Health Care Education/Training Program; PCP Family Medicine; Visit Provider Hospitalist
DX: K57.32 Diverticulitis of large intestine without perforation or abscess without bleeding (principal); I50.33 Acute on chronic diastolic (congestive) heart failure; J96.01 Acute respiratory failure with hypoxia; N17.0 Acute kidney failure with tubular necrosis; J18.9 Pneumonia, unspecified organism; K86.2 Cyst of pancreas; I13.0 Hypertensive heart and chronic kidney disease with heart failure and stage 1 through stage 4 chronic kidney disease, or unspecified chronic kidney disease; R78.81 Bacteremia; I25.10 Atherosclerotic heart disease of native coronary artery without angina pectoris; I44.7 Left bundle-branch block, unspecified; M31.6 Other giant cell arteritis; E78.5 Hyperlipidemia, unspecified; E03.9 Hypothyroidism, unspecified; D51.9 Vitamin B12 deficiency anemia, unspecified; Z20.822 Contact with and (suspected) exposure to COVID-19; N18.30 Chronic kidney disease, stage 3 unspecified; D63.1 Anemia in chronic kidney disease; L89.152 Pressure ulcer of sacral region, stage 2; B96.20 Unspecified Escherichia coli [E. coli] as the cause of diseases classified elsewhere; R33.9 Retention of urine, unspecified; J43.9 Emphysema, unspecified; R15.9 Full incontinence of feces; Z95.5 Presence of coronary angioplasty implant and graft; Z87.891 Personal history of nicotine dependence; Z88.1 Allergy status to other antibiotic agents; Z79.82 Long term (current) use of aspirin; Z79.890 Hormone replacement therapy; Z79.899 Other long term (current) drug therapy
CPT/HCPCS: 36415; 71045; 71250; 74176; 80048; 80051; 80053; 80076; 81001; 82040; 82272; 82550; 82565; 82607; 82728; 82746; 82803; 82947; 83010; 83516; 83520; 83540; 83605; 83615; 83690; 83735; 83880; 84100; 84145; 84156; 84300; 84484; 84520; 84540; 85014; 85018; 85025; 85027; 85610; 86021; 86038; 86039; 86140; 86160; 86340; 86704; 86706; 86803; 86850; 86900; 86901; 86923; 87040; 87077; 87086; 87186; 87205; 87340; 87449; 87493; 87633; 87635; 89190; 93005; 93306; 94640; 94660; 96361; 96365; 96375; 97116; 97162; 99285; C1758; J0696; J1940; J1956; J2270; J2405; J3475; P9016; P9047

== ENCOUNTER 2022-05-14 | Outpatient (REF) | payer OTHER, MEDICARE, SELFPAY ==
--- NOTE | ~2022-05-14 | CT_ITS ---
EXAMINATION: CT ABDOMEN AND PELVIS WITHOUT CONTRAST CLINICAL INFORMATION: Abdominal pain. COMPARISON: CT scan of the abdomen and pelvis dated 04/21/2022. Abdominal MRI dated 01/01/2022. TECHNIQUE: Multidetector volumetric imaging was performed from the superior aspect of the liver through the pubic symphysis. Sagittal and coronal reformatted images were obtained on the technologist's workstation. Plaque of intravenous and oral contrast limits visceral evaluation. This CT examination was performed using dose optimization techniques as appropriate, variously including the following: *Automated exposure control *Adjustment of mA and/or kV according to patient size (this includes techniques or standardized protocols for targeted exams where dose is matched to indication/reason for exam; i.e. extremities or head) *Use of iterative reconstruction technique DLP: 450 mGy-cm FINDINGS: LUNG BASES: Small pericardial effusion mild bibasilar atelectasis. No pleural effusions. LIVER, GALLBLADDER, AND BILIARY TREE: No hepatic abnormality. Moderate dilatation of the gallbladder. No significant biliary ductal dilatation. PANCREAS: Multiloculated cystic lesion in the pancreatic head with mild interval increase in size measuring approximately 5.0 x 4.6 x 3.8 cm (previously approximately 4.3 x 4.3 x 3.8 cm), image 36, series 3; image 63, series 4. SPLEEN: Unremarkable. ADRENAL GLANDS: Unremarkable. KIDNEYS AND URETERS: Left kidney interpolar anechoic cyst measures 4.8 cm in cc dimension (image 93, series 4). No nephrolithiasis or hydroureteronephrosis. BLADDER: Mildly distended limiting evaluation without focal abnormality. GASTROINTESTINAL TRACT: The stomach, small bowel and appendix are unremarkable. Proximally in the colon, mild mural thickening is seen in the colon, most pronounced at the base of the cecum. The appendix is unremarkable. Abnormal mild to moderate mural thickening is seen in the distal descending colon extending into the sigmoid colon and rectum. Mural thickening is most pronounced in the mid one third of the sigmoid colon with extracolonic collections containing air that appears contiguous with the adjacent colon. The largest collection in the left hemipelvis measures approximately 4.8 x 2.9 x 3.1 cm (image 69, series 4; image 67, series 3). Intramural air is also suspected. Mild to moderate adjacent infiltrative changes are seen. No definitive pneumoperitoneum. ABDOMINAL WALL: No significant hernia is appreciated. LYMPH NODES: No lymphadenopathy. VASCULAR: Unremarkable. PELVIC VISCERA: Unremarkable. OSSEOUS STRUCTURES: Mild grade 1 anterolisthesis of L4 over L5. CT/CT abdomen pelvis wo IV con IMPRESSION: 1. Interval progression of previously seen diverticulitis as detailed above. No definitive fistula formation. Mild mural thickening in the proximal colon may be reactive to this process. 2. Mild interval enlargement of known pancreatic head cystic lesion. 3. Left renal cyst demonstrates benign features without significant change, not requiring follow-up.
== END 2022-05-14 00:01 | disposition home or self-care (01) ==
LOC: HO.CT
PROVIDERS: PCP Family Medicine; Visit Provider Hospitalist
DX: R10.9 Unspecified abdominal pain (principal); K57.92 Diverticulitis of intestine, part unspecified, without perforation or abscess without bleeding
CPT/HCPCS: 74176